=== PATIENT | female | born 1960 | race Caucasian/White ===

== ENCOUNTER → 2018-03-04 14:44 | Outpatient (CLI) | payer OTHER, SELFPAY ==
[2018-03-04 15:45] LABS: Add Manual Diff / Slide Review NO; Basophils Percent Auto 0.5 % (0-2); Eosinophils Percent Auto 0.7 % (2-4); Hematocrit 41.9 % (36-46); Hemoglobin 14.2 g/dL (12.0-16.0); Lymphocytes Percent Auto 6.4 % (25-40); Mean Corpuscular HGB Conc 33.9 % (30-36); Mean Corpuscular Hemoglobin 29.7 PG (26-34); Mean Corpuscular Volume 87.7 fL (80-100); Monocytes Percent Auto 7.5 % (3-14); Neutrophils Absolute Auto 12100 /uL (3000-5900); Neutrophils Percent Auto 84.9 % (50-75); Platelet Count 239 X10^3/uL (150-400); Red Blood Cell Count 4.78 X10^6/uL (4.0-5.2); White Blood Cell Count 14.3 X10^3/uL (4.5-11.0)
[2018-03-04 16:33] LABS: Alanine Aminotransferase 31 IU/L (9-52); Albumin Globulin Ratio 1.9 (1.0-2.8); Alkaline Phosphatase 70 U/L (38-126); Aspartate Aminotransferase 15 IU/L (14-36); BUN Creatinine Ratio 27.1 (6-22); Bilirubin Total 1.2 mg/dL (0.2-1.3); Blood Urea Nitrogen 19 mg/dL (7-17); Calcium 9.8 mg/dL (8.4-10.2); Carbon Dioxide 21 mmol/L (22-32); Chloride 97 mmol/L (98-107); Estimated Glomerular Filt Rate > 60.0 mL/min (>60); Globulin 2.6 g/dL (1.7-4.1); Glucose 97 mg/dL (70-100); HEMOLYSIS 15 (0-50); Lipase 46 U/L (23-300); Potassium 4.4 mmol/L (3.4-5.1); Sodium 138 mmol/L (137-145); Total Protein 7.6 g/dL (6.3-8.2)
== END ==
PROVIDERS: PCP Physician Assistant; Visit Provider Physician Assistant
DX: R10.13 Epigastric pain (principal)
CPT/HCPCS: 36415; 80053; 83690; 85025

== ENCOUNTER 2018-03-04 15:07 | Observation (INO) | payer OTHER, SELFPAY ==
[2018-03-04 15:22] VITALS: BP 128/76; PULSE 60; RESP 18; TEMP 37.8; O2SAT 98
[2018-03-04 15:50] VITALS: BP 128/76; PULSE 60; RESP 18; TEMP 37.8; O2SAT 98
[2018-03-04 18:46] VITALS: BP 126/61; PULSE 90; RESP 15; O2SAT 98
--- NOTE | 2018-03-04 19:19 | ED.ABDPAIN ---
HPI - Abdominal Pain <Zoë Montanez PA-C - Last Filed: 03/04/18 23:08> General Chief Complaint: Abdominal Pain Stated Complaint: NEEDS ULTRASOUND Time Seen by Provider: 03/04/18 18:54 Source: patient Mode of arrival: ambulatory Limitations: no limitations History of Present Illness HPI narrative: This 58-year-old female complains of possible gallbladder attack. She states that her 1st episode of pain was in October, had a 2nd in January and another today that started at 3:00 a.m.. She states this seems to be mostly in the central epigastric area and also right upper quadrant. Pain seems to worsen with movement, going over bumps in the car, perhaps with food though she has been eating a very healthy diet recently and lost 62 lb. She states that she does get nausea and has had vomiting x1 when she tried to take her med since today. She states that she had a fever of 100.5 at home earlier. She was seen at her PCP clinic and labs and ultrasound were ordered however she was unable to get these done today so came here. She denies any urinary symptoms. She denies any bowel habit changes or blood in the stools. She has had flank pain. Pain does not seem to radiate. She thinks that the pain is a bit better lying flat. 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 She notes that she is generally healthy. Her allergy to IVP dye consisted as feeling sleepy and sneezing, but she has never had dyspnea or wheeze nor any rash or facial swelling with this. Related Data Home Medications Medication Instructions Recorded Confirmed bupropion HCl 1 tab PO DAILY 03/04/18 metformin 500 mg PO BID 03/04/18 03/04/18 topiramate 1 tab PO DIRECTED 03/04/18 03/04/18 topiramate 25 mg PO DAILY 03/04/18 03/04/18 bupropion HCl 03/05/18 Previous Rx's Medication Instructions Recorded lisinopril-hydrochlorothiazide 1 tab PO QDAY #30 tab 08/29/17 Allergies Allergy/AdvReac Type Severity Reaction Status Date / Time IVP DYE Allergy Mild REALLY Uncoded 11/27/17 11:48 REALLY SLEEPY AND SNEEZING Review of Systems <Zoë Montanez PA-C - Last Filed: 03/04/18 23:08> Review of Systems All systems reviewed & are unremarkable except as noted in HPI and below Exam <Zoë Montanez PA-C - Last Filed: 03/04/18 23:08> Narrative Exam Narrative: GENERAL APPEARANCE: Patient sitting comfortably, in no distress. HEENT: PERRL, EOMI, no scleral icterus NECK: Supple LUNGS: Clear to auscultation bilaterally. HEART: Rate and rhythm regular, normal S1 and S2, no S3 or S4. ABDOMEN: Soft, nondistended, bowel sounds present x 4 quadrants, no masses palpable, no hepatosplenomegaly. She has right upper quadrant tenderness with positive Dow sign, tenderness over the central epigastrium and also the left upper quadrant. She is tender over the right lower quadrant/McBurney's point area as well. There is no guarding or rebound. No CVAT. No suprapubic tenderness or tenderness over the pelvis EXTREMITIES: No edema, no cyanosis DERMATOLOGIC: No jaundice or exanthem NEUROLOGIC: Alert and oriented with normal speech and coordination Initial Vital Signs Initial Vital Signs: Vital Signs Temperature 100.0 F H 03/04/18 15:22 Pulse Rate 60 03/04/18 15:22 Respiratory Rate 18 03/04/18 15:22 Blood Pressure 128/76 H 03/04/18 15:22 Pulse Oximetry 98 03/04/18 15:22 <Elias Márquez DO - Last Filed: 03/05/18 03:52> Initial Vital Signs Initial Vital Signs: Vital Signs Temperature 100.0 F H 03/04/18 15:22 Pulse Rate 60 03/04/18 15:22 Respiratory Rate 18 03/04/18 15:22 Blood Pressure 128/76 H 03/04/18 15:22 Pulse Oximetry 98 03/04/18 15:22 Course <GERMAIN Bailon Last Filed: 03/04/18 23:08> Additional Information: Patient was initially sent in for ultrasound, however she appeared to have more diffuse pain on exam and CT was ordered. She has severe diverticulitis without free air or clear abscess. I spoke with Dr. Mason industrial controller for surgery and reviewed lab findings including elevated white count and CT results. He does not feel she is an acute surgical candidate, but did recommend medical management with IV antibiotics and monitoring, and he can consult. Levaquin and Flagyl ordered. Clear liquid diet ordered along with Dilaudid for pain and additional IV fluids. Dr. Ash industrial controller hospitalist is agreeable with admission to Medicine. Orders Ordered: ED Orders 03/04/18 19:40 CT abdomen pelvis w con Stat 03/04/18 21:19 Comprehensive Metabolic Panel Stat Lipase Stat Morphine Sulfate (Morphine) 5 mg IV Q2HR PRN PRN Reason: Pain, Severe (7-10) Morphine Sulfate (Morphine) 6 mg IV Q2HR PRN PRN Reason: Pain, Severe (7-10) Morphine Sulfate (Morphine) 4 mg IV Q2HR PRN PRN Reason: Pain, Severe (7-10) Morphine Sulfate (Morphine Sulfate) 7 mg IV Q2H PRN PRN Reason: Pain, Severe (7-10) Morphine Sulfate (Morphine) 8 mg IV Q2HR PRN PRN Reason: Pain, Severe (7-10) Ondansetron HCl (Zofran) 4 mg IV Q4HR PRN PRN Reason: Nausea And Vomiting Oxycodone/Acetaminophen (Percocet 5/325) 1 tab PO Q4HR PRN PRN Reason: Pain, Moderate (4-6) Last Admin: 03/05/18 01:35 Dose: 1 tab Oxycodone/Acetaminophen (Percocet 5/325) 2 tab PO Q4HR PRN PRN Reason: Pain, Moderate (4-6) Discontinued Medications Diphenhydramine HCl (Benadryl) 25 mg IV NOW ONE Stop: 03/04/18 19:51 Last Admin: 03/04/18 20:38 Dose: 25 mg Hydromorphone HCl (Dilaudid) 0.5 mg IV NOW ONE Stop: 03/04/18 21:53 Last Admin: 03/04/18 22:16 Dose: 0.5 mg Sodium Chloride (Normal Saline 0.9%) 1,000 mls @ 1,000 mls/hr IV BOLUS ONE Stop: 03/04/18 20:39 Last Infusion: 03/04/18 21:13 Dose: 0 mls/hr Admin: 03/04/18 19:45 Dose: 1,000 mls/hr Metronidazole (Flagyl) 500 mg in 100 mls @ 100 mls/hr IV NOW ONE Stop: 03/04/18 22:48 Last Admin: 03/04/18 22:16 Dose: 100 mls/hr Levofloxacin (Levaquin) 750 mg in 150 mls @ 100 mls/hr IV NOW ONE Stop: 03/04/18 23:18 Last Admin: 03/04/18 23:00 Dose: 100 mls/hr Sodium Chloride (Normal Saline 0.9%) 1,000 mls @ 1,000 mls/hr IV BOLUS ONE Stop: 03/04/18 22:51 Last Infusion: 03/04/18 22:54 Dose: 1,000 mls/hr Admin: 03/04/18 22:19 Dose: 1,000 mls/hr Ketorolac Tromethamine (Toradol) 30 mg IV NOW ONE Stop: 03/04/18 19:41 Last Admin: 03/04/18 19:45 Dose: 30 mg Morphine Sulfate (Morphine) 4 mg IV Q2HR KARMEN Last Admin: 03/05/18 02:56 Dose: Admin: 03/05/18 02:56 Dose: Ondansetron HCl (Zofran) 4 mg IV NOW ONE Stop: 03/04/18 18:56 Last Admin: 03/04/18 19:45 Dose: 4 mg Oxycodone/Acetaminophen (Percocet 5/325) 2 tab PO Q2HR PRN PRN Reason: Pain, Severe (7-10) Vital Signs - 8 hr 03/04/18 21:37 03/04/18 22:55 03/04/18 23:40 Temperature 98.7 F 98.2 F 98.1 F Pulse Rate 84 69 64 Respiratory Rate 17 22 18 Blood Pressure 157/85 H 110/74 Blood Pressure [Right Arm] 131/57 H Pulse Oximetry 98 96 95 <Elias Márquez, - Last Filed: 03/05/18 03:52> Orders Ordered: ED Orders 03/04/18 19:40 CT abdomen pelvis w con Stat 03/04/18 21:19 Comprehensive Metabolic Panel Stat Lipase Stat Morphine Sulfate (Morphine) 5 mg IV Q2HR PRN PRN Reason: Pain, Severe (7-10) Morphine Sulfate (Morphine) 6 mg IV Q2HR PRN PRN Reason: Pain, Severe (7-10) Morphine Sulfate (Morphine) 4 mg IV Q2HR PRN PRN Reason: Pain, Severe (7-10) Morphine Sulfate (Morphine Sulfate) 7 mg IV Q2H PRN PRN Reason: Pain, Severe (7-10) Morphine Sulfate (Morphine) 8 mg IV Q2HR PRN PRN Reason: Pain, Severe (7-10) Ondansetron HCl (Zofran) 4 mg IV Q4HR PRN PRN Reason: Nausea And Vomiting Oxycodone/Acetaminophen (Percocet 5/325) 1 tab PO Q4HR PRN PRN Reason: Pain, Moderate (4-6) Last Admin: 03/05/18 01:35 Dose: 1 tab Oxycodone/Acetaminophen (Percocet 5/325) 2 tab PO Q4HR PRN PRN Reason: Pain, Moderate (4-6) Discontinued Medications Diphenhydramine HCl (Benadryl) 25 mg IV NOW ONE Stop: 03/04/18 19:51 Last Admin: 03/04/18 20:38 Dose: 25 mg Hydromorphone HCl (Dilaudid) 0.5 mg IV NOW ONE Stop: 03/04/18 21:53 Last Admin: 03/04/18 22:16 Dose: 0.5 mg Sodium Chloride (Normal Saline 0.9%) 1,000 mls @ 1,000 mls/hr IV BOLUS ONE Stop: 03/04/18 20:39 Last Infusion: 03/04/18 21:13 Dose: 0 mls/hr Admin: 03/04/18 19:45 Dose: 1,000 mls/hr Metronidazole (Flagyl) 500 mg in 100 mls @ 100 mls/hr IV NOW ONE Stop: 03/04/18 22:48 Last Admin: 03/04/18 22:16 Dose: 100 mls/hr Levofloxacin (Levaquin) 750 mg in 150 mls @ 100 mls/hr IV NOW ONE Stop: 03/04/18 23:18 Last Admin: 03/04/18 23:00 Dose: 100 mls/hr Sodium Chloride (Normal Saline 0.9%) 1,000 mls @ 1,000 mls/hr IV BOLUS ONE Stop: 03/04/18 22:51 Last Infusion: 03/04/18 22:54 Dose: 1,000 mls/hr Admin: 03/04/18 22:19 Dose: 1,000 mls/hr Ketorolac Tromethamine (Toradol) 30 mg IV NOW ONE Stop: 03/04/18 19:41 Last Admin: 03/04/18 19:45 Dose: 30 mg Morphine Sulfate (Morphine) 4 mg IV Q2HR KARMEN Last Admin: 03/05/18 02:56 Dose: Admin: 03/05/18 02:56 Dose: Ondansetron HCl (Zofran) 4 mg IV NOW ONE Stop: 03/04/18 18:56 Last Admin: 03/04/18 19:45 Dose: 4 mg Oxycodone/Acetaminophen (Percocet 5/325) 2 tab PO Q2HR PRN PRN Reason: Pain, Severe (7-10) Vital Signs - 8 hr 03/04/18 21:37 03/04/18 22:55 03/04/18 23:40 Temperature 98.7 F 98.2 F 98.1 F Pulse Rate 84 69 64 Respiratory Rate 17 22 18 Blood Pressure 157/85 H 110/74 Blood Pressure [Right Arm] 131/57 H Pulse Oximetry 98 96 95 MDM - Abdominal Pain <Zoë Montanez PA-C - Last Filed: 03/04/18 23:08> Lab Data Attestation: I reviewed the patient's lab results. Result diagrams: 03/04/18 18:45 03/04/18 21:19 Lab Results 03/04/18 03/04/18 Range/Units 18:45 21:19 WBC 15.0 H (4.5-11.0) X10^3/uL RBC 4.77 (4.0-5.2) X10^6/uL Hgb 14.2 (12.0-16.0) g/dL Hct 41.5 (36-46) % MCV 87.0 (80-100) fL MCH 29.8 (26-34) PG MCHC 34.3 (30-36) % RDW 14.9 H (11.6-14.8) % Plt Count 231 (150-400) X10^3/uL Total Counted 100 Seg Neutrophils % 80.0 H (38-70) % Lymphocytes % (Manual) 9.0 L (25-45) % Monocytes % (Manual) 9.0 (2-11) % Eosinophils % (Manual) 1.0 L (2-4) % Basophils % (Manual) 1.0 (0-1) % Neutrophils # (Manual) 33111 H (6314-8307) /uL RBC Morphology Normal morphology Sodium 133 L (137-145) mmol/L Potassium 4.0 (3.4-5.1) mmol/L Chloride 97 L (98-107) mmol/L Carbon Dioxide 23 (22-32) mmol/L BUN 20 H (7-17) mg/dL Creatinine 0.70 (0.52-1.04) mg/dL Estimated GFR > 60.0 (>60) mL/min BUN/Creatinine Ratio 28.6 H (6-22) Glucose 96 (70-100) mg/dL Calcium 8.5 (8.4-10.2) mg/dL Total Bilirubin 0.9 (0.2-1.3) mg/dL AST 12 L (14-36) IU/L ALT 30 (9-52) IU/L Alkaline Phosphatase 53 (38-126) U/L Total Protein 6.4 (6.3-8.2) g/dL Albumin 4.0 (3.5-5.0) g/dL Globulin 2.4 (1.7-4.1) g/dL Albumin/Globulin Ratio 1.7 (1.0-2.8) Lipase 38 (23-300) U/L Point of care testing: Urine Dip Bedside Urine Glucose Negative Bedside Urine Bilirubin - Negative Bedside Urine Ketone ++ 40 Urine Specific [place] 1.010 Bedside Urine Occult Blood - Negative Bedside Urine pH 6.0 Bedside Urine Protein - Negative Bedside Urine Urobilinogen +/- 1mg Bedside Urine Nitrite - Negative Bedside Urine Leukocytes - Negative Esterase <Elias Márquez, DO - Last Filed: 03/05/18 03:52> Lab Data Lab Results 03/04/18 03/04/18 Range/Units 18:45 21:19 WBC 15.0 H (4.5-11.0) X10^3/uL RBC 4.77 (4.0-5.2) X10^6/uL Hgb 14.2 (12.0-16.0) g/dL Hct 41.5 (36-46) % MCV 87.0 (80-100) fL MCH 29.8 (26-34) PG MCHC 34.3 (30-36) % RDW 14.9 H (11.6-14.8) % Plt Count 231 (150-400) X10^3/uL Total Counted 100 Seg Neutrophils % 80.0 H (38-70) % Lymphocytes % (Manual) 9.0 L (25-45) % Monocytes % (Manual) 9.0 (2-11) % Eosinophils % (Manual) 1.0 L (2-4) % Basophils % (Manual) 1.0 (0-1) % Neutrophils # (Manual) 80406 H (9886-9876) /uL RBC Morphology Normal morphology Sodium 133 L (137-145) mmol/L Potassium 4.0 (3.4-5.1) mmol/L Chloride 97 L (98-107) mmol/L Carbon Dioxide 23 (22-32) mmol/L BUN 20 H (7-17) mg/dL Creatinine 0.70 (0.52-1.04) mg/dL Estimated GFR > 60.0 (>60) mL/min BUN/Creatinine Ratio 28.6 H (6-22) Glucose 96 (70-100) mg/dL Calcium 8.5 (8.4-10.2) mg/dL Total Bilirubin 0.9 (0.2-1.3) mg/dL AST 12 L (14-36) IU/L ALT 30 (9-52) IU/L Alkaline Phosphatase 53 (38-126) U/L Total Protein 6.4 (6.3-8.2) g/dL Albumin 4.0 (3.5-5.0) g/dL Globulin 2.4 (1.7-4.1) g/dL Albumin/Globulin Ratio 1.7 (1.0-2.8) Lipase 38 (23-300) U/L Point of care testing: Urine Dip Bedside Urine Glucose Negative Bedside Urine Bilirubin - Negative Bedside Urine Ketone ++ 40 Urine Specific [place] 1.010 Bedside Urine Occult Blood - Negative Bedside Urine pH 6.0 Bedside Urine Protein - Negative Bedside Urine Urobilinogen +/- 1mg Bedside Urine Nitrite - Negative Bedside Urine Leukocytes - Negative Esterase Discharge Plan Departure Patient Disposition: Admitted As Inpatient Clinical Impression: Diverticulitis Discharge Date/Time: 03/04/18 22:32 Interventions: ED Discharge Assessment Last Done: 03/04/18 22:52 Admit Date/Time: 03/04/18 22:29 Admit Provider: Laura Ash <Elias Márquez DO - Last Filed: 03/05/18 03:52> Cosign ED Attending Costroyature Attestation: I was immediately available in the department for consultation. Documentation has been reviewed. I agree with assessment and plan.
[2018-03-04 19:22] LABS: Hematocrit 41.5 % (36-46); Hemoglobin 14.2 g/dL (12.0-16.0); Mean Corpuscular Hemoglobin 29.8 PG (26-34); Red Blood Cell Count 4.77 X10^6/uL (4.0-5.2)
[2018-03-04 19:23] LABS: Mean Corpuscular HGB Conc 34.3 % (30-36); Platelet Count 231 X10^3/uL (150-400); Red Cell Distribution Width 14.9 % (11.6-14.8)
[2018-03-04 19:24] LABS: Neutrophils Absolute Manual 12000 /uL (3000-5900); RBC Morphology Normal Morphology; Total Cells Counted 100
--- NOTE | 2018-03-04 19:40 | DI.CT.S_ITS ---
PROCEDURE: CT ABDOMEN PELVIS W CON INDICATIONS: abdominal pain, nausea, fever TECHNIQUE: After the administration of oral and intravenous contrast, 5 mm thick sections acquired from the diaphragms to the symphysis. 5 mm thick coronal and sagittal reformats were performed. For radiation dose reduction, the following was used: automated exposure control, adjustment of mA and/or kV according to patient size. COMPARISON: [facility], CT, ABDOMEN/PELVIS WITH CONTRAST, 06/12/2016, 12:56. FINDINGS: Image quality: Excellent. ABDOMEN: Lung bases: Lung bases are clear. Heart size is normal. Solid organs: Liver is normal in size and enhancement. Gallbladder demonstrates calculi within its lumen. Biliary system is non-dilated. Pancreas enhances normally. Spleen is normal in size and enhancement. No adrenal nodules. Kidneys are normal in size and enhancement, without hydronephrosis. Peritoneum and bowel: Stomach and small bowel are within normal limits. Appendix is normal. Colon is nondistended. There is diverticulosis of the transverse, descending, and sigmoid colon. Within the mid transverse colon, there is a focal region of severe colonic wall thickening, and moderate surrounding fat stranding. There appears to be an inflamed diverticulum protruding anteriorly from the mid transverse colon. No free fluid or air. Nodes and vessels: No retroperitoneal or mesenteric adenopathy. Aorta and inferior vena cava are normal in caliber. Miscellaneous: No ventral hernias. PELVIS: Genitourinary: Bladder wall thickness is normal. 25 mm diameter left ovarian cyst is present, and is increased. Miscellaneous: No inguinal hernias or adenopathy. Bones: No suspicious bony lesions. No vertebral body compression fractures. IMPRESSION: 1. Findings most suggestive of severe acute diverticulitis of the mid transverse colon without pericolonic abscess. However, given the degree of wall thickening, colonoscopy is recommended to exclude the less likely possibility of underlying malignancy. 2. Cholelithiasis. 3. Left ovarian cyst in a presumably postmenopausal female; gynecological consultation is recommended. Dictated by: Benjamin Garrison M.D. on 03/04/2018 at 21:10 Approved by: Benajmin Garrison M.D. on 03/04/2018 at 21:13
[2018-03-04] MEDS: ONDANSETRON 4 MG/2 ML INJ IV (19:45)
[2018-03-04] MEDS: SODIUM CHLORIDE 0.9% 1,000 ML 1000 ML IV ×2 (19:45→22:19)
[2018-03-04] MEDS: KETOROLAC 60 MG/2 ML VIAL 30 MG IV (19:45)
[2018-03-04] MEDS: diphenhydrAMINE 50 MG/ML VIAL 25 MG IV (20:38)
[2018-03-04 21:37] VITALS: BP 131/57; PULSE 84; RESP 17; TEMP 37.1; O2SAT 98
[2018-03-04 21:38] LABS: Alanine Aminotransferase 30 IU/L (9-52); Albumin Globulin Ratio 1.7 (1.0-2.8); Alkaline Phosphatase 53 U/L (38-126); Aspartate Aminotransferase 12 IU/L (14-36); BUN Creatinine Ratio 28.6 (6-22); Bilirubin Total 0.9 mg/dL (0.2-1.3); Blood Urea Nitrogen 20 mg/dL (7-17); Calcium 8.5 mg/dL (8.4-10.2); Carbon Dioxide 23 mmol/L (22-32); Chloride 97 mmol/L (98-107); Estimated Glomerular Filt Rate > 60.0 mL/min (>60); Globulin 2.4 g/dL (1.7-4.1); Glucose 96 mg/dL (70-100); HEMOLYSIS < 15 (0-50); Lipase 38 U/L (23-300); Sodium 133 mmol/L (137-145); Total Protein 6.4 g/dL (6.3-8.2)
[2018-03-04] MEDS: HYDROMORPHONE 1 MG INJ 0.5 MG IV (22:16)
[2018-03-04] MEDS: metroNIDAZOLE 500 MG/100 ML PIGGYBACK 100 MG IV (22:16)
[2018-03-04 22:55] VITALS: BP 157/85; PULSE 69; RESP 22; TEMP 36.8; O2SAT 96
[2018-03-04] MEDS: levoFLOXacin 750 MG/150 ML PIGGYBACK 100 MG IV (23:00)
[2018-03-04 23:40] VITALS: BP 110/74; PULSE 64; RESP 18; TEMP 36.7; O2SAT 95
[2018-03-05] VITALS (8 sets, daily range): BP systolic 97–143; BP diastolic 51–75; PULSE 54–72; RESP 16–18; TEMP 36–36.8; O2SAT 95–99; BMI 34.0
[2018-03-05] MEDS: OXYCODONE/ACETAMINOPHEN 5/325 TABLET 1 TAB PO ×3 (01:35→21:10)
--- NOTE | 2018-03-05 02:57 | PC.ADMIT ---
Addendum entered by Theresa Campbell R.N. 03/05/18 02:58: 0000 pt had arrived to room at change of shift, she is A/ox3, [place]FOR[place]K per her baseline with no hear aides. Pt has tenderness to mid abdomen and denies nausea. Initially denied need for pain med but changed her mind and had 1 tab Percocet for 3/10 pain to abdomen. IV antibiotics infused. Pt oriented to room and call light. Original Note: [facility] Admission Note: The patient,Traci Mireles,58 y/o, was given written information regarding hospital policies, unit procedures and contact persons. Patient's smoking status: Never smoker. Vital Signs - 8 hr 03/04/18 21:37 03/04/18 22:55 03/04/18 23:40 Temperature 98.7 F 98.2 F 98.1 F Pulse Rate 84 69 64 Respiratory Rate 17 22 18 Blood Pressure 157/85 H 110/74 Blood Pressure [Right Arm] 131/57 H Pulse Oximetry 98 96 95
--- NOTE | 2018-03-05 09:56 | PM.HP.1 ---
History of Present Illness Date Patient Seen: 03/05/18 Time Patient Seen: 09:56 Chief complaint: NEEDS ULTRASOUND Narrative: 58-year-old female presents with increasing abdominal pain and nausea. She has had intermittent pain for the past several weeks she has been having increasing fevers. She has been on a low carb diet has lost 60 lb over the past several months. She does have a history of diverticulosis and had a colonoscopy about 2 years ago had a polyp removed at that time. Patient History Medical History Colon polyps (Acute) Diverticulosis (Acute) HTN (hypertension) (Chronic) Hyperglycemia (Chronic) Family & Social History Social History: household members spouse Prior Living Arrangements House Safety & Behavioral: Feels Safe in Current Yes Environment Been Physically Hurt or No Threatened By a Person Suicidal Ideation Description None Tobacco & Substance use: Smoking Status Never smoker alcohol intake frequency holiday/special occasion Substance Use Type does not use Meds Home Medications Medication Instructions Recorded Confirmed Type lisinopril-hydrochlorothiazide 1 tab PO QDAY #30 tab 08/29/17 03/04/18 Rx bupropion HCl 1 tab PO DAILY 03/04/18 03/05/18 History metformin 500 mg PO BID 03/04/18 03/04/18 History topiramate 1 tab PO DIRECTED 03/04/18 03/04/18 History topiramate 25 mg PO DAILY 03/04/18 03/04/18 History Allergies Allergy/AdvReac Type Severity Reaction Status Date / Time IVP DYE Allergy Mild REALLY Uncoded 11/27/17 11:48 REALLY SLEEPY AND SNEEZING Review of Systems Review of Systems All systems reviewed & are unremarkable except as noted in HPI and below Exam Vital Signs (past 8 hours): - 03/05/18 04:35 03/05/18 08:19 Temperature 97.6 F 97.9 F Pulse Rate 57 L 62 Respiratory Rate 18 16 Blood Pressure 111/57 L 122/62 H Pulse Oximetry 95 99 Oxygen Delivery Method Room Air Oxygen Flow Rate 0 Narrative Exam Narrative: Pleasant female no acute distress HEENT exam unremarkable Lungs clear Heart regular rhythm Abdomen is soft no tenderness to palpation today although she says earlier when she came to the ER she was very tender bowel sounds are hypoactive but present Lower extremities no edema Neuro exam awake alert oriented no focal deficits Objective Labs Result Diagrams: 03/04/18 18:45 03/04/18 21:19 Labs: Laboratory Results - last 24 hr 03/04/18 03/04/18 18:45 21:19 WBC 15.0 H RBC 4.77 Hgb 14.2 Hct 41.5 MCV 87.0 MCH 29.8 MCHC 34.3 RDW 14.9 H Plt Count 231 Total Counted 100 Seg Neutrophils % 80.0 H Lymphocytes % (Manual) 9.0 L Monocytes % (Manual) 9.0 Eosinophils % (Manual) 1.0 L Basophils % (Manual) 1.0 Neutrophils # (Manual) 57735 H RBC Morphology Normal morphology Sodium 133 L Potassium 4.0 Chloride 97 L Carbon Dioxide 23 BUN 20 H Creatinine 0.70 Estimated GFR > 60.0 BUN/Creatinine Ratio 28.6 H Glucose 96 Calcium 8.5 Total Bilirubin 0.9 AST 12 L ALT 30 Alkaline Phosphatase 53 Total Protein 6.4 Albumin 4.0 Globulin 2.4 Albumin/Globulin Ratio 1.7 Lipase 38 Assessment & Plan Plan: Assessment/Plan Narrative: One. Acute diverticulitis CT scan showing diverticulitis white count elevated 15. She is hemodynamically stable she is feeling much better with antibiotics and fluids given in the ER. I would anticipate her probably just being here on observation overnight and then possibly home tomorrow morning as long as she is feeling better we can continue oral antibiotics. Plan to watch her carefully cheese not having any current nausea or vomiting will advance her diet as tolerated 2. Hypertension plan to continue home medications 3. Diabetes type 2 on metformin plan to continue medications 4. Disposition she will be observation status for now
--- NOTE | 2018-03-05 09:58 | PM.CN ---
History of Present Illness Date Patient Seen: 03/05/18 Time Patient Seen: 09:58 Chief complaint: NEEDS ULTRASOUND Reason for consult: Abdominal pain Requesting provider: Laura Ash Narrative: 58-year-old female who presented the emergency department last evening with 24 hr history of progressive epigastric abdominal pain radiating toward the umbilicus. She had had similar episodes on 2 separate occasions over the last 2-3 months but these spontaneously resolved. On this particular occasion the pain was unrelenting and quite sharp in nature. Denied any chest pain or shortness of breath. No subjective fever or chills. She did have nausea and vomiting yesterday but none since. She tolerated a diet yesterday up until the time that the pain became quite severe. Nevertheless, she is tolerating clear liquid diet since admission to the hospital. She reports relatively normal bowel function yesterday although the stool was somewhat darker and less formed than usual. She is passing flatus. No dysuria or hematuria. She has had no true melena, hematochezia, or bright red blood per rectum. Her current pain is much less than when she was admitted last night in the emergency department, and overall she states she is feeling much better this morning. She denies any association between meals, types of food, and her current symptoms. [facility] Medical History Cholelithiasis (Acute) Colon polyps (Acute) Diverticulitis (Acute) Diverticulosis (Acute) HTN (hypertension) (Chronic) Hyperglycemia (Chronic) Surgical History H/O colonoscopy with polypectomy (Acute) History of tonsillectomy (Acute) Family History Brother Age: 51 Crohns disease Grandfather Heart disease Mother Heart disease Stroke Social History household members: spouse Smoking Status: Never smoker Meds Home Medications Medication Instructions Recorded Confirmed Type lisinopril-hydrochlorothiazide 1 tab PO QDAY #30 tab 08/29/17 03/04/18 Rx bupropion HCl 1 tab PO DAILY 03/04/18 03/05/18 History metformin 500 mg PO BID 03/04/18 03/04/18 History topiramate 1 tab PO DIRECTED 03/04/18 03/04/18 History topiramate 25 mg PO DAILY 03/04/18 03/04/18 History Allergies Allergy/AdvReac Type Severity Reaction Status Date / Time IVP DYE Allergy Mild REALLY Uncoded 11/27/17 11:48 REALLY SLEEPY AND SNEEZING Review of Systems Review of Systems All systems reviewed & are unremarkable except as noted in HPI and below Exam Vital Signs (past 8 hours): - 03/05/18 04:35 03/05/18 08:19 Temperature 97.6 F 97.9 F Pulse Rate 57 L 62 Respiratory Rate 18 16 Blood Pressure 111/57 L 122/62 H Pulse Oximetry 95 99 Oxygen Delivery Method Room Air Oxygen Flow Rate 0 Narrative Exam Narrative: Well-nourished well-developed mildly obese female in no acute distress lying comfortably in bed. Alert oriented x3 Her is at the bedside throughout my entire visit Sclera nonicteric Neck is supple Chest clear to auscultation bilaterally with regular rate and rhythm. No murmurs, gallops, rubs. No crackles or wheezes No flank tenderness Abdomen is soft and mildly obese but nondistended. She is not tympanitic. She has active bowel sounds. She is tender in the supraumbilical region only. No lower abdominal tenderness. No right upper quadrant tenderness. No Dow sign. She does not have any guarding or rebound. Extremities show no clubbing, cyanosis, or edema Objective Labs Result Diagrams: 03/04/18 18:45 03/04/18 21:19 Labs: Laboratory Results - last 24 hr 03/04/18 03/04/18 18:45 21:19 WBC 15.0 H RBC 4.77 Hgb 14.2 Hct 41.5 MCV 87.0 MCH 29.8 MCHC 34.3 RDW 14.9 H Plt Count 231 Total Counted 100 Seg Neutrophils % 80.0 H Lymphocytes % (Manual) 9.0 L Monocytes % (Manual) 9.0 Eosinophils % (Manual) 1.0 L Basophils % (Manual) 1.0 Neutrophils # (Manual) 56287 H RBC Morphology Normal morphology Sodium 133 L Potassium 4.0 Chloride 97 L Carbon Dioxide 23 BUN 20 H Creatinine 0.70 Estimated GFR > 60.0 BUN/Creatinine Ratio 28.6 H Glucose 96 Calcium 8.5 Total Bilirubin 0.9 AST 12 L ALT 30 Alkaline Phosphatase 53 Total Protein 6.4 Albumin 4.0 Globulin 2.4 Albumin/Globulin Ratio 1.7 Lipase 38 I have personally reviewed her CT scan of the abdomen and pelvis done last evening in the emergency department. No free air. No abscess. No phlegmon. No dilated loops of small bowel or large intestine. No air-fluid levels. No solid organ lesions. She does have a left ovarian cyst of unclear significance. No significant free fluid anywhere in the abdomen. She does have incidental calcified gallstones. No evidence of cholecystitis however. There is extensive diverticulosis throughout the colon with thickening of the transverse colon consistent with diverticulitis. Assessment & Plan Plan: Assessment/Plan Narrative: I discussed my impression findings with the patient and her in detail. She seems to have uncomplicated transverse diverticulitis. I doubt colonic neoplasm. She did have colonoscopy under the care of Dr. Sharif on March 14, 2016 at this institution. I have reviewed those records as well as the pathology findings. She had evidence of tubular adenomas and a serrated adenoma. Serrated adenoma was removed from the transverse colon. There was extensive diverticulosis noted on the operative report. No evidence of microscopic colitis however. Recommendation for follow-up colonoscopy was in 3 years at that time. I do not believe that her current episode is consistent with biliary colic secondary to cholelithiasis. I discussed all the above with the patient in detail. She does not require any acute surgical intervention at this time. I anticipate that she will resolve clinically with intravenous broad-spectrum antibiotics. I agree with Levaquin and Flagyl as ordered. Continue clear liquid diet for now. If she continues to progress and improve throughout the day then we may advance her to a low residue diet this evening. If she tolerates a low residue diet and continues to improve then potentially discharge home tomorrow on oral antibiotics. I discussed all of this with her at length. She was agreeable to the plan. We will continue to follow her during this admission.
[2018-03-05] MEDS: SODIUM CHLORIDE 0.45% 1,000 ML 100 ML IV (10:12)
[2018-03-05] MEDS: metroNIDAZOLE 500 MG/100 ML PIGGYBACK 100 MG IV ×3 (10:12→23:12)
[2018-03-05] MEDS: ACETAMINOPHEN 325 MG TABLET 650 MG PO (13:52)
[2018-03-05] MEDS: levoFLOXacin 750 MG/150 ML PIGGYBACK 100 MG IV (21:11)
[2018-03-05] MEDS: METFORMIN HCL 500 MG TABLET PO (21:11)
[2018-03-06 01:44] VITALS: BP 126/65; PULSE 51; RESP 16; TEMP 36.8; O2SAT 96
[2018-03-06] MEDS: OXYCODONE/ACETAMINOPHEN 5/325 TABLET 1 TAB PO (03:32)
[2018-03-06] MEDS: metroNIDAZOLE 500 MG/100 ML PIGGYBACK 100 MG IV ×2 (03:35→09:58)
[2018-03-06] MEDS: SODIUM CHLORIDE 0.45% 1,000 ML 100 ML IV (03:37)
[2018-03-06 05:36] VITALS: BP 117/57; PULSE 62; RESP 16; TEMP 36.7; O2SAT 96
[2018-03-06] MEDS: ACETAMINOPHEN 325 MG TABLET 650 MG PO (06:30)
[2018-03-06 07:27] LABS: Add Manual Diff / Slide Review NO; Eosinophils Percent Auto 3.8 % (2-4); Mean Corpuscular HGB Conc 33.4 % (30-36); Mean Corpuscular Hemoglobin 29.5 PG (26-34); Mean Corpuscular Volume 88.3 fL (80-100); Monocytes Percent Auto 8.6 % (3-14); Neutrophils Absolute Auto 2400 /uL (3000-5900); Neutrophils Percent Auto 64.6 % (50-75); Platelet Count 139 X10^3/uL (150-400); Red Blood Cell Count 4.08 X10^6/uL (4.0-5.2); Red Cell Distribution Width 14.5 % (11.6-14.8); White Blood Cell Count 3.8 X10^3/uL (4.5-11.0)
[2018-03-06 07:31] LABS: Alanine Aminotransferase 26 IU/L (9-52); Albumin 3.7 g/dL (3.5-5.0); Albumin Globulin Ratio 1.7 (1.0-2.8); Alkaline Phosphatase 45 U/L (38-126); Aspartate Aminotransferase 9 IU/L (14-36); Bilirubin Total 0.3 mg/dL (0.2-1.3); Blood Urea Nitrogen 9 mg/dL (7-17); Calcium 8.7 mg/dL (8.4-10.2); Carbon Dioxide 29 mmol/L (22-32); Chloride 103 mmol/L (98-107); Estimated Glomerular Filt Rate > 60.0 mL/min (>60); Globulin 2.2 g/dL (1.7-4.1); Glucose 99 mg/dL (70-100); HEMOLYSIS < 15 (0-50); Potassium 3.9 mmol/L (3.4-5.1); Sodium 140 mmol/L (137-145); Total Protein 5.9 g/dL (6.3-8.2)
[2018-03-06 08:23] VITALS: BP 128/72; RESP 16; O2SAT 98
[2018-03-06 08:24] VITALS: O2SAT 98
--- NOTE | 2018-03-06 08:28 | PM.DS.1 ---
History of Present Illness Date Patient Seen: 03/06/18 Time Patient Seen: 08:28 Chief complaint: NEEDS ULTRASOUND Narrative: 58-year-old female presents with increasing abdominal pain and nausea. She has had intermittent pain for the past several weeks she has been having increasing fevers. She has been on a low carb diet has lost 60 lb over the past several months. She does have a history of diverticulosis and had a colonoscopy about 2 years ago had a polyp removed at that time. Discharge Providers Date of admission: 03/04/18 22:29 Primary care physician: Alicia Snyder PA-C Consults: 03/05/18 08:30 Consult to Physician Routine Comment: Consulting Provider: Louis Mason Reason for consultation: diverticulitis Has provider been notified: Yes Discharge provider: MUSA Montez Summary Discharge Diagnosis: 1. Acute diverticulitis 2. Hypertension 3. Diabetes type 2 Hospital Course: This is a summary of a 2 day hospitalization for this 50-year-old pleasant female who was admitted with chief complaint of upper abdominal pain. CT of the abdomen showed free air, abscess, no dilated loops of small bowel with a large intestine. There are no solid organ lesions. There was extensive diverticulosis colon with thickening of the transverse colon consistent with diverticulitis. General surgery was consulted and no acute surgical intervention is needed at this point time. She was placed on IV Levaquin and Flagyl with improvement in her symptoms over night. Her hypertension type 2 diabetes been managed well with her home medications. Her white blood cell count went from 15 down to 3.8 this morning and has been afebrile. She has been on low residue diet since admission and once her symptoms disappear she may start on a high fiber with fiber supplements and increased fluid intake. She will be discharged on a total of a 2 week course of Flagyl and Levaquin. We believe she does not require colonoscopy at this time but should be followed up and have her routine surveillance exam in 1 year. She has recommended follow-up with her primary care provider in 1 week and with surgery in 2 weeks. Status at Discharge Functional status at discharge: independent ambulation Overall status at discharge: patient is progressing back to baseline Time Spent with Patient Greater than 30 minutes Exam Vital Signs (past 8 hours): - 03/06/18 01:44 03/06/18 05:36 03/06/18 08:23 Temperature 98.2 F 98.1 F Pulse Rate 51 L 62 Respiratory Rate 16 16 16 Blood Pressure 126/65 H 117/57 L 128/72 H Pulse Oximetry 96 96 98 03/06/18 08:24 Temperature Pulse Rate Respiratory Rate Blood Pressure Pulse Oximetry 98 Oxygen Delivery Method Room Air Oxygen Flow Rate 0 Narrative Exam Narrative: Patient states she is feeling much better this morning. Const General: cooperative, healthy appearing, comfortable, well developed and well groomed Nutritional Appearance: overweight Orientation: alert, awake and oriented x3 HENMT Head: normal to inspection, normocephalic and atraumatic Eyes General: appearance normal, both eyes and all related structures Pupils: PERRL Neck Neck: normal visual inspection, trachea midline and supple Chest Chest: normal inspection of the chest Resp Effort & Inspection: normal respiratory effort and able to speak in complete sentences Auscultation: clear to auscultation bilaterally Cardio Rhythm: regular rhythm Heart Sounds: S1 normal, S2 normal and murmur systolic II/ and at the right sternal border GI Inspection: normal to inspection Palpation: soft Auscultation: normal bowel sounds Other: Tender to deeper palpation across the transverse colon. Other: A voiding without difficulty. Skin General: no rashes or lesions noted Neuro General: alert, awake and oriented x3 Cognition: normal cognition Speech: speech normal Gait: normal gait Motor: muscle tone normal throughout Sensory Exam: no sensory deficits noted Extrem General: normal to inspection, no pedal edema and no calf tenderness Psych Appearance: grossly normal Mood: congruent mood Affect: normal affect Attitude: cooperative Thought Process: normal Thought Content: normal Judgment: judgment good Objective Labs Result Diagrams: 03/06/18 06:45 03/06/18 06:45 Labs: Laboratory Results - last 24 hr 03/06/18 03/06/18 06:45 06:45 WBC 3.8 L D RBC 4.08 Hgb 12.0 Hct 36.0 MCV 88.3 MCH 29.5 MCHC 33.4 RDW 14.5 Plt Count 139 L Neut % (Auto) 64.6 D Lymph % (Auto) 22.0 L [place] % (Auto) 8.6 Eos % (Auto) 3.8 Baso % (Auto) 1.0 Neut # (Auto) 2400 L Sodium 140 Potassium 3.9 Chloride 103 Carbon Dioxide 29 BUN 9 Creatinine 0.50 L Estimated GFR > 60.0 BUN/Creatinine Ratio 18.0 Glucose 99 Calcium 8.7 Total Bilirubin 0.3 AST 9 L ALT 26 Alkaline Phosphatase 45 Total Protein 5.9 L Albumin 3.7 Globulin 2.2 Albumin/Globulin Ratio 1.7 PROCEDURE: CT ABDOMEN PELVIS W CON INDICATIONS: abdominal pain, nausea, fever TECHNIQUE: After the administration of oral and intravenous contrast, 5 mm thick sections acquired from the diaphragms to the symphysis. 5 mm thick coronal and sagittal reformats were performed. For radiation dose reduction, the following was used: automated exposure control, adjustment of mA and/or kV according to patient size. COMPARISON: [facility], CT, ABDOMEN/PELVIS WITH CONTRAST, 06/12/2016, 12:56. FINDINGS: Image quality: Excellent. ABDOMEN: Lung bases: Lung bases are clear. Heart size is normal. Solid organs: Liver is normal in size and enhancement. Gallbladder demonstrates calculi within its lumen. Biliary system is non-dilated. Pancreas enhances normally. Spleen is normal in size and enhancement. No adrenal nodules. Kidneys are normal in size and enhancement, without hydronephrosis. Peritoneum and bowel: Stomach and small bowel are within normal limits. Appendix is normal. Colon is nondistended. There is diverticulosis of the transverse, descending, and sigmoid colon. Within the mid transverse colon, there is a focal region of severe colonic wall thickening, and moderate surrounding fat stranding. There appears to be an inflamed diverticulum protruding anteriorly from the mid transverse colon. No free fluid or air. Nodes and vessels: No retroperitoneal or mesenteric adenopathy. Aorta and inferior vena cava are normal in caliber. Miscellaneous: No ventral hernias. PELVIS: Genitourinary: Bladder wall thickness is normal. 25 mm diameter left ovarian cyst is present, and is increased. Miscellaneous: No inguinal hernias or adenopathy. Bones: No suspicious bony lesions. No vertebral body compression fractures. IMPRESSION: 1. Findings most suggestive of severe acute diverticulitis of the mid transverse colon without pericolonic abscess. However, given the degree of wall thickening, colonoscopy is recommended to exclude the less likely possibility of underlying malignancy. 2. Cholelithiasis. 3. Left ovarian cyst in a presumably postmenopausal female; gynecological consultation is recommended. Dictated by: Benjamin Garrison M.D. on 03/04/2018 at 21:10 Approved by: Benjamin Garrison M.D. on 03/04/2018 at 21:13 Discharge Plan Discharge Plan Patient Disposition: Home, Self-Care Provider Discharge Instructions Diet: Diet as Tolerated Diet comment: Low fiber/low residue until symptoms disappear. Then changed to high fiber Activity: As tolerated Oxygen: Room air Wound Care Report to your healthcare provider any signs of infection, such as:: chills, fever, night sweats and increased pain Discharge Data Primary Care Provider: Alicia Snyder Attending Provider: Laura Ash Admles Date/Time: 03/04/18 22:29
[2018-03-06 08:38] VITALS: BP 108/54; PULSE 57; RESP 16; TEMP 36.7; O2SAT 98
--- NOTE | 2018-03-06 08:49 | P.PN_ITS ---
Subjective Date Patient Seen: 03/06/18 Time Patient Seen: 08:00 Interval history: Passing flatus. No bowel movement. Feels much more comfortable compared to yesterday but still has some mild residual epigastric pain just above the umbilicus. Pain is significantly less than at the time of admission. Denies any fever or chills. No nausea or vomiting. Tolerating her low residue diet without issues. Reports normal bladder function. Ambulating without difficulty. Exam Vital Signs (past 8 hours): - 03/06/18 01:44 03/06/18 05:36 03/06/18 08:23 Temperature 98.2 F 98.1 F Pulse Rate 51 L 62 Respiratory Rate 16 16 16 Blood Pressure 126/65 H 117/57 L 128/72 H Pulse Oximetry 96 96 98 03/06/18 08:24 Temperature Pulse Rate Respiratory Rate Blood Pressure Pulse Oximetry 98 Oxygen Delivery Method Room Air Oxygen Flow Rate 0 Narrative Exam Narrative: Well-nourished well-developed female in no acute distress. Alert oriented x3. Lying comfortably in bed this morning. Regular rate and rhythm Remains afebrile and otherwise completely hemodynamically stable Abdomen is soft and nondistended. She remains mildly tender in the epigastric region but certainly without any guarding or rebound. She is much less tender than at the time of admission. Objective Labs Result Diagrams: 03/06/18 06:45 03/06/18 06:45 Labs: Laboratory Results - last 24 hr 03/06/18 03/06/18 06:45 06:45 WBC 3.8 L D RBC 4.08 Hgb 12.0 Hct 36.0 MCV 88.3 MCH 29.5 MCHC 33.4 RDW 14.5 Plt Count 139 L Neut % (Auto) 64.6 D Lymph % (Auto) 22.0 L [place] % (Auto) 8.6 Eos % (Auto) 3.8 Baso % (Auto) 1.0 Neut # (Auto) 2400 L Sodium 140 Potassium 3.9 Chloride 103 Carbon Dioxide 29 BUN 9 Creatinine 0.50 L Estimated GFR > 60.0 BUN/Creatinine Ratio 18.0 Glucose 99 Calcium 8.7 Total Bilirubin 0.3 AST 9 L ALT 26 Alkaline Phosphatase 45 Total Protein 5.9 L Albumin 3.7 Globulin 2.2 Albumin/Globulin Ratio 1.7 Assessment & Plan Plan: Assessment/Plan Narrative: 58-year-old female with resolving diverticulitis of the transverse colon. She is much improved remains afebrile. White blood cell count is unremarkable. She may continue low residue diet from my perspective and discharge to home today. Once her acute symptoms have completely resolved and I would recommend high-fiber diet with fiber supplementation daily as well as copious water. We discussed her intake of at least eight 8 oz glasses of water daily. Would continue her antibiotics for a total 2 week course. She may be converted to oral Levaquin and Flagyl for the next 12 days or so. Follow up with her family physician would be appropriate. She may follow up with me as needed. Again, I do not believe he requires colonoscopy until she is scheduled for surveillance one year from now at less she continues to have recurring episodes or other abdominal symptoms. I discussed all these issues with her in detail. All questions were answered to her satisfaction, and she voiced understanding.
[2018-03-06] MEDS: METFORMIN HCL 500 MG TABLET PO (09:29)
[2018-03-06 09:31] VITALS: BP 134/61; PULSE 54
[2018-03-06] MEDS: hydroCHLOROthiazide 12.5 MG CAPSULE PO (09:31)
[2018-03-06] MEDS: LISINOPRIL 10 MG TABLET PO (09:31)
--- NOTE | 2018-03-06 10:09 | PC.NURSE ---
Addendum entered by Chelo Andersen R.N. 03/06/18 12:22: Discharge instructions reviewed with pt and verbalizes understanding on f/u diet and care. IV d/c'd. Pt transferred downstairs to personal vehicle. [place] OK'd pt to drive herself home. Pt left with all belongings. Original Note: Pt is A&Ox3; cooperative. Hyperactive BTs auscultated, soft and tender with slight distention noted across abd. Pain intermittent, tolerating low residue diet without n/v. Pt expresses eagerness to d/c home this morning.
== END 2018-03-06 12:26 | disposition home or self-care (01) ==
LOC: ED 22:12 → AC 03-05 09:30
PROVIDERS: Internal Medicine; Admitting Provider Internal Medicine; Emergency Provider Internal Medicine; Family Provider Physician Assistant; PCP Physician Assistant; Visit Provider Internal Medicine
DX: K57.32 Diverticulitis of large intestine without perforation or abscess without bleeding (principal); R10.9 Unspecified abdominal pain; R11.0 Nausea; I10 Essential (primary) hypertension; E11.9 Type 2 diabetes mellitus without complications; Z79.84 Long term (current) use of oral hypoglycemic drugs; K80.20 Calculus of gallbladder without cholecystitis without obstruction; N83.202 Unspecified ovarian cyst, left side
CPT/HCPCS: 36415; 36591; 74177; 80053; 81003; 83690; 85025; 96361; 96365; 96368; 96375; 99282; 99285; G0378; J1170; J1200; J1885; J1956; J2405; J7050; Q9967

== ENCOUNTER → 2018-03-24 07:08 | Outpatient (CLI) | payer OTHER, SELFPAY ==
[2018-03-06 09:05] VITALS: BMI 34.0
--- NOTE | 2018-03-24 07:10 | DI.US.S_ITS ---
PROCEDURE: US PELVIC COMPLETE INDICATIONS: LEFT OVARIAN CYST ON CT TECHNIQUE: Real-time scanning was performed of the pelvic organs, with image documentation. Additional endovaginal scanning was necessary due to incomplete visualization of the adnexal and endometrial structures by transabdominal scanning. COMPARISON: None. FINDINGS: Transabdominal scanning: Limited scanning through the kidneys shows no hydronephrosis. The kidneys measure 12.2 CM right internal one CM left. No pathologic free abdominal or pelvic fluid. Endovaginal scanning: Uterus: Uterus is normal in size at 3.5 x 5.3 x 7.3 cm. The endometrium measures 2.9 mm in combined thickness. Ovaries: The right ovary appears normal measuring 16 x 24 x 24 mm. The left ovary measures 27 x 36 x 39 mm and contains 2 minimally complex cysts measuring 19 x 23 x 26 mm and 12 x 12 x 18 mm, both containing low level internal echoes. IMPRESSION: 1. Normal uterus and right ovary. 2. Left ovary contains minimally complex cysts, the largest showing maximum diameter of 2.6 cm. No specific recommendation for followup of cysts measuring less than 3 cm in early post menopause. Dictated by: Mack Vasquez M.D. on 03/24/2018 at 8:30 Approved by: Mack Vasquez M.D. on 03/24/2018 at 8:34
== END ==
PROVIDERS: Family Provider Physician Assistant; PCP Physician Assistant; Visit Provider Physician Assistant
DX: N83.292 Other ovarian cyst, left side (principal)
CPT/HCPCS: 76830; 76856

== ENCOUNTER → 2018-05-20 09:46 | Outpatient (CLI) | payer OTHER, SELFPAY ==
[2018-03-06 09:05] VITALS: BMI 34.0
== END ==
PROVIDERS: Family Provider Physician Assistant; PCP Physician Assistant; Visit Provider Physician Assistant
DX: L02.91 Cutaneous abscess, unspecified (principal)
CPT/HCPCS: 87070; 87205

== ENCOUNTER → 2018-05-20 09:52 | Outpatient (CLI) | payer OTHER, SELFPAY ==
[2018-03-06 09:05] VITALS: BMI 34.0
--- NOTE | 2018-05-20 09:53 | DI.RAD.S_ITS ---
PROCEDURE: XR TIBIA FUBULA RT 2V INDICATIONS: Trauma to R carrillo x 1week TECHNIQUE: 2 views of the tibia and fibula were acquired. COMPARISON: None. FINDINGS: Bones: No acute fractures or dislocations. No suspicious bony lesions. Small to moderate-sized plantar and Achilles spurs of the calcaneus are present. There is also an enthesophyte at the patellar tendon attachment onto the patella. Soft tissues: No suspicious soft tissue calcifications or masses. Mild pretibial edema is present. IMPRESSION: 1. No acute osseous abnormality of the right tibia or fibula. 2. Mild pretibial edema. Dictated by: David Rojas M.D. on 05/20/2018 at 9:32 Approved by: David Rojas M.D. on 05/20/2018 at 9:33
== END ==
PROVIDERS: PCP Physician Assistant; Visit Provider Physician Assistant
DX: M79.604 Pain in right leg (principal); S89.91XA Unspecified injury of right lower leg, initial encounter; R60.0 Localized edema
CPT/HCPCS: 73590; 87070; 87077; 87147; 87205

== ENCOUNTER 2018-05-22 08:25 | Inpatient (IN) | payer OTHER, SELFPAY ==
[2018-03-06 09:05] VITALS: BMI 34.0
[2018-05-22] VITALS (8 sets, daily range): BP systolic 130–155; BP diastolic 72–95; PULSE 59–73; RESP 16–20; TEMP 36.4–36.8; O2SAT 93–97; BMI 32.5
--- NOTE | 2018-05-22 | DI.MRI.S_ITS ---
PROCEDURE: MR LOWER LEG RT WO/W CON INDICATIONS: Right carrillo wound TECHNIQUE: Noncontrast coronal T1 spin echo and STIR, sagittal T1 spin echo with fat saturation and STIR, axial T1 spin echo and T2 fast spin echo with fat saturation. After the administration of contrast, axial/sagittal/coronal T1 spin echo with fat saturation through the right lower leg.. COMPARISON: None. FINDINGS: Image quality: Excellent. Bones: The visualized bone marrow demonstrates normal signal on all sequences. The overlying cortex appears intact. No abnormal intraosseous enhancement. No periosteal reaction or cortical thickening. Soft tissues: Soft tissue ulceration with surrounding edema is noted involving proximal to mid portion of anterior lower leg along anterior cortex of the tibia shaft. No soft tissue masses are visualized. Mild peripheral contrast enhancement in this region is noted. No drainable fluid collection is seen. The scanned muscles demonstrate normal overall bulk and internal signal. Subcutaneous tissues appear normal as well. No other abnormal soft tissue enhancement. IMPRESSION: 1. Ulceration and surrounding cellulitis in anterior right lower leg soft tissue anterior to proximal to mid tibia shaft. No drainable abscess collection. No soft tissue mass. No other area of abnormal enhancement. 2. No evidence of osteomyelitis. No marrow edema. No fracture or dislocation. Dictated by: Abhay Stanley M.D. on 05/22/2018 at 14:36 Approved by: Abhay Stanley M.D. on 05/22/2018 at 14:46
[2018-05-22] MEDS: CEFAZOLIN 2 GM/100 ML FROZ.PIGGY IV (09:28)
[2018-05-22] MEDS: SODIUM CHLORIDE 0.9% 1,000 ML 1000 ML IV (09:29)
[2018-05-22 09:32] LABS: Add Manual Diff / Slide Review NO; Basophils Percent Auto 0.6 % (0-2); Eosinophils Percent Auto 2.4 % (2-4); Hematocrit 40.7 % (36-46); Lymphocytes Percent Auto 14.6 % (25-40); Mean Corpuscular HGB Conc 34.4 % (30-36); Mean Corpuscular Hemoglobin 30.2 PG (26-34); Mean Corpuscular Volume 87.7 fL (80-100); Monocytes Percent Auto 9.1 % (3-14); Neutrophils Absolute Auto 6000 /uL (3000-5900); Neutrophils Percent Auto 73.3 % (50-75); Platelet Count 215 X10^3/uL (150-400); Red Blood Cell Count 4.64 X10^6/uL (4.0-5.2); Red Cell Distribution Width 14.3 % (11.6-14.8); White Blood Cell Count 8.2 X10^3/uL (4.5-11.0)
[2018-05-22 10:03] LABS: BUN Creatinine Ratio 21.4 (6-22); Blood Urea Nitrogen 15 mg/dL (7-17); Calcium 9.5 mg/dL (8.4-10.2); Carbon Dioxide 27 mmol/L (22-32); Chloride 102 mmol/L (98-107); Estimated Glomerular Filt Rate > 60.0 mL/min (>60); Glucose 100 mg/dL (70-100); HEMOLYSIS < 15 (0-50); Potassium 4.3 mmol/L (3.4-5.1); Sodium 144 mmol/L (137-145)
[2018-05-22 10:07] LABS: Procalcitonin < 0.05 ng/mL (<0.5)
[2018-05-22] MEDS: INFLUENZA VACCINE 0.5 ML SYRINGE IM (10:35)
[2018-05-22] MEDS: OXYCODONE/ACETAMINOPHEN 5/325 TABLET 2 TAB PO ×2 (11:48→20:11)
--- NOTE | 2018-05-22 13:01 | PC.NURSE ---
Pt admitted with nonhealing draining wound on right carrillo that is very painful at this time. Seen by Dr Smith and given two percocet which were effective for pain. Plan to do imaging of wound to rule out abscess formation. Wound assessment and photo completed.
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
[2018-05-22] MEDS: DEXTROSE 5%-0.45% NS 1,000 ML 100 ML IV (13:36)
[2018-05-22] MEDS: MORPHINE 2 MG/ML INJ IV (14:52)
[2018-05-22] MEDS: CEFAZOLIN VIAL 3 GM in SODIUM CHLORIDE 0.9% 100 ML 200 ML IV (17:11)
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
--- NOTE | 2018-05-22 22:20 | PC.NURSE ---
SHIFT NOTE R carrillo wound dressed with ABD pad and paper tape, small amount of serosanguinous shadow drainage noted. pt states increased pain when RLE is moved from vertical position to horizontal position, not necessarily from weight bearing activities. states pain rated 5-6/10, administered PRN percocet. able to ambulate with bathroom with shuffling gait and FWW. call light within reach.
[2018-05-22] MEDS: ACETAMINOPHEN 325 MG TABLET 650 MG PO (23:57)
[2018-05-23] VITALS (7 sets, daily range): BP systolic 104–152; BP diastolic 62–85; PULSE 62–79; RESP 16–18; TEMP 36.2–36.9; O2SAT 94–98
[2018-05-23] MEDS: CEFAZOLIN VIAL 3 GM in SODIUM CHLORIDE 0.9% 100 ML 200 ML IV (01:14)
[2018-05-23] MEDS: DEXTROSE 5%-0.45% NS 1,000 ML 100 ML IV (02:10)
[2018-05-23] MEDS: OXYCODONE/ACETAMINOPHEN 5/325 TABLET 2 TAB PO ×3 (02:13→15:59)
[2018-05-23 05:08] LABS: Add Manual Diff / Slide Review NO; Basophils Percent Auto 0.3 % (0-2); Eosinophils Percent Auto 4.5 % (2-4); Hematocrit 40.2 % (36-46); Hemoglobin 13.4 g/dL (12.0-16.0); Lymphocytes Percent Auto 22.8 % (25-40); Mean Corpuscular HGB Conc 33.4 % (30-36); Mean Corpuscular Hemoglobin 29.6 PG (26-34); Mean Corpuscular Volume 88.8 fL (80-100); Monocytes Percent Auto 8.3 % (3-14); Neutrophils Absolute Auto 3700 /uL (3000-5900); Neutrophils Percent Auto 64.1 % (50-75); Platelet Count 188 X10^3/uL (150-400); Red Blood Cell Count 4.52 X10^6/uL (4.0-5.2); Red Cell Distribution Width 14.3 % (11.6-14.8); White Blood Cell Count 5.8 X10^3/uL (4.5-11.0)
[2018-05-23 05:11] LABS: Blood Urea Nitrogen 12 mg/dL (7-17); Calcium 8.8 mg/dL (8.4-10.2); Carbon Dioxide 27 mmol/L (22-32); Chloride 105 mmol/L (98-107); Estimated Glomerular Filt Rate > 60.0 mL/min (>60); Glucose 110 mg/dL (70-100); HEMOLYSIS < 15 (0-50); Potassium 4.5 mmol/L (3.4-5.1); Sodium 143 mmol/L (137-145)
[2018-05-23] MEDS: ONDANSETRON 4 MG/2 ML INJ IV (06:26)
[2018-05-23] MEDS: ENOXAPARIN 40 MG/0.4 ML SYRINGE SUBCUT (08:41)
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
--- NOTE | 2018-05-23 15:01 | PM.PN.1 ---
Subjective Date Patient Seen: 05/23/18 Time Patient Seen: 10:01 Interval history: History of present illness Follow-up on patient with right lower extremity calf region cellulitis with localized purulent abscess Group G streptococcal organism identified on culture Initial treatment was Ancef and switched to Augmentin 875 p.o. b.i.d. on May 23 Review of systems No chest pain or shortness of breath no nausea no fevers no chills Discomfort in the right leg is much less and and is tolerable Exam Vital Signs (past 8 hours): - 05/23/18 08:00 05/23/18 08:30 05/23/18 11:30 Temperature 98.5 F 98.5 F Pulse Rate 62 71 Respiratory Rate 18 18 Blood Pressure 104/62 137/74 Pulse Oximetry 96 94 94 Oxygen Delivery Method Room Air Oxygen Flow Rate 0 Narrative Exam Narrative: General appearance awake and alert no apparent distress Psychiatric well oriented to time place person mood is pleasant affect is appropriate Respiratory clear to auscultation with good airflow no wheezes no crackles Cardiovascular regular rate rhythm no murmurs +3 pulses to extremities GI benign soft nontender positive bowel sounds no masses no bruits Neurologic no focal neurologic changes cranial nerves 2-12 grossly intact Skin in the region of the cellulitis and the margins of apparently withdrawn based upon purposeful markings on the skin. Upon [place] region in the center where drainage had previously occurred. No packing indicated Objective Labs Result Diagrams: 05/23/18 04:40 05/23/18 04:40 Labs: Laboratory Results - last 24 hr 05/23/18 05/23/18 04:40 04:40 WBC 5.8 RBC 4.52 Hgb 13.4 Hct 40.2 MCV 88.8 MCH 29.6 MCHC 33.4 RDW 14.3 Plt Count 188 Neut % (Auto) 64.1 Lymph % (Auto) 22.8 L [place] % (Auto) 8.3 Eos % (Auto) 4.5 H Baso % (Auto) 0.3 Neut # (Auto) 3700 Sodium 143 Potassium 4.5 Chloride 105 Carbon Dioxide 27 BUN 12 Creatinine 0.60 Estimated GFR > 60.0 BUN/Creatinine Ratio 20.0 Glucose 110 H Calcium 8.8 Assessment & Plan Plan: Assessment/Plan Narrative: Cellulitis of right leg with localized drainage No packing of wound indicated Cultures positive for group B strep. Changed from IV Ancef to oral Augmentin 875 mg p.o. b.i.d. MRI of the right lower extremity did not identify the presence of any abscess May be good patient for discharge tomorrow. Wound care consult to see patient and may be able to follow in outpatient setting after discharge. (2) Morbid obesity with body mass index (BMI) of 40.0 to 44.9 in adult: Will monitor (3) Hypertension: lisinopril in the morning Time Spent With Patient Time with patient: 25 - 35 minutes (25 min) Quality VTE Deep Vein Thrombosis/Pulmonary Embolism Present on Admission: No
[2018-05-23] MEDS: AMOXICILLIN/CLAV 875/125 MG 1 TAB PO ×2 (15:59→21:19)
[2018-05-23] MEDS: ONDANSETRON 8 MG in SODIUM CHLORIDE 0.9% 50 ML 216 ML IV (17:27)
[2018-05-24 00:12] VITALS: O2SAT 96
[2018-05-24 00:48] VITALS: BP 127/74; PULSE 64; RESP 16; TEMP 36.7; O2SAT 96
[2018-05-24] MEDS: OXYCODONE/ACETAMINOPHEN 5/325 TABLET 2 TAB PO ×2 (03:44→09:51)
[2018-05-24 03:45] VITALS: BP 142/77; PULSE 66; RESP 16; TEMP 36.7; O2SAT 96
[2018-05-24] MEDS: DEXTROSE 5%-0.45% NS 1,000 ML 100 ML IV (03:45)
--- NOTE | 2018-05-24 05:36 | PC.NURSE ---
dressing changed, wound with purulent and serosanguinous drainage; absorbant pad and paper tape for dressing. Karissa-wound area is dark purple and swollen. Patient stating she feels much more mobile now, able to ambulate to bathroom with just a stand by assist. Pain controlled with percocet. IVF running as ordered. vital signs stable. adequate PO intake. No nausea.
[2018-05-24 07:58] VITALS: O2SAT 96
[2018-05-24 08:00] VITALS: BP 151/53; PULSE 68; RESP 16; TEMP 36.4; O2SAT 96
[2018-05-24] MEDS: ENOXAPARIN 40 MG/0.4 ML SYRINGE SUBCUT (08:06)
[2018-05-24] MEDS: AMOXICILLIN/CLAV 875/125 MG 1 TAB PO (08:07)
--- NOTE | 2018-05-24 09:06 | PM.DS.1 ---
History of Present Illness Date Patient Seen: 05/24/18 Time Patient Seen: 07:00 Chief complaint: Infection in R Calf Narrative: Patient is a very pleasant 58 years of age female with a cellulitis and punctate purulent drainage wound that was found to be absent of abscess when a follow-up MRI of the region was completed during hospital course. Patient was provided Ancef antibiotic for group G streptococcal infection that grew from the wound. Patient responded quite favorably to the antibiotic that is provided. Patient was transitioned to Augmentin 875 b.i.d. on March 23. Wound dressing by the nursing staff during hospital course. Requested a wound care consult to see the patient who may also see the patient in the outpatient setting. Wound care consult has not seen patient is yet. Will be discharging the patient home on Augmentin for another 8 days with wound care as directed by the nursing staff on discharge today. Patient can see her primary care physician in the next 3-5 days to check on the wound. If the wound care consult sees the patient today may also arrange for outpatient visit with the patient as well. Discharge Providers Date of admission: 05/22/18 09:14 Primary care physician: Alicia Snyder PA-C Discharge provider: Marcos Ghosh MD Discharge Date: 05/24/18 Summary Discharge Diagnosis: Cellulitis of right leg with localized drainage from a punctate, purulent centralized wound. No packing of wound indicated Cultures positive for group B strep. Changed from IV Ancef to oral Augmentin 875 mg p.o. b.i.d. on May 23 MRI of the right lower extremity did not identify the presence of any abscess once the central pustule wound extruded content. Wound care consult requested to see patient and perhaps follow in outpatient setting as well Alternatively, patient can see her PCP in the next few days close follow-up. Patient likely able to provide self-care regarding wound care dressing until see PCP Hypertension: Stable on discharge Continue lisinopril lisinopril Hospital Course: Patient is a very pleasant 58 years of age female with a cellulitis and punctate purulent drainage wound that was found to be absent of abscess when a follow-up MRI of the region was completed during hospital course. Patient was provided Ancef antibiotic for group G streptococcal infection that grew from the wound. Patient responded quite favorably to the antibiotic that is provided. Patient was transitioned to Augmentin 875 b.i.d. on March 23. Wound dressing by the nursing staff during hospital course. Requested a wound care consult to see the patient who may also see the patient in the outpatient setting. Wound care consult has not seen patient is yet. Will be discharging the patient home on Augmentin for another 8 days with wound care as directed by the nursing staff on discharge today. Patient can see her primary care physician in the next 3-5 days to check on the wound. If the wound care consult sees the patient today may also arrange for outpatient visit with the patient as well. Status at Discharge Cognitive/behavioral status at discharge: Well oriented no apparent distress anxious for discharge Functional status at discharge: independent ambulation Time Spent with Patient Greater than 30 minutes (35 min) Exam Vital Signs (past 8 hours): - 05/24/18 03:45 05/24/18 07:58 05/24/18 08:00 Temperature 98.1 F 97.6 F Pulse Rate 66 68 Respiratory Rate 16 16 Blood Pressure 142/77 H 151/53 H Pulse Oximetry 96 96 96 Oxygen Delivery Method Room Air Oxygen Flow Rate 0 Narrative Exam Narrative: Awake and alert no apparent distress anxious for discharge Patient is well oriented in good spirits affect normal Respiratory clear to auscultation with good air flow Cardiovascular a very mild faint systolic murmur best heard over the aortic valve which could be interpreted as a valvular flow murmur Patient notes she has had this murmur for years. GI benign soft nontender Extremities warm with good pulses no edema Skin area of involvement with the punctate wound and cellulitis to the right leg with margins aditya during the healing process wound is fairly clean based and will cared for by the nursing staff during hospital course Objective Labs Result Diagrams: 05/23/18 04:40 05/23/18 04:40 Discharge Plan Discharge Plan Patient Disposition: Home Discharge Med Rec/Prescriptions Prescriptions: New amoxicillin-pot clavulanate 875-125 mg tablet 1 tab PO BID Qty: 16 RF: 0 Continue mupirocin 2 % ointment 1 applictn TOP DAILY Qty: 30 RF: 0 lisinopril-hydrochlorothiazide 10 MG/12.5 MG tablet 1 tab PO QDAY Qty: 30 RF: 3 Discontinued sulfamethoxazole-trimethoprim [Bactrim DS] 800-160 mg tablet 1 tab PO BID 10 Days Qty: 20 RF: 0 Follow up/Referrals: Alicia Snyder PA-C [Primary Care Provider] - 3-5 Days (to check healing of right leg wound ) Provider Discharge Instructions Diet: Diet as Tolerated and Regular Skin/Wound/Dressing Care Skin care: wound care as directed by nurse on discharge. Report to your healthcare provider any signs of infection, such as:: chills, fever, increased pain and unusual drainage Discharge Data Primary Care Provider: Alicia Snyder Attending Provider: Eboni Smith Admit Date/Time: 05/22/18 09:14 Quality VTE Deep Vein Thrombosis/Pulmonary Embolism Present on Admission: No
--- NOTE | 2018-05-24 10:41 | PC.NURSE ---
discharge pt states pain controlled with medication. d/c instructions provided to pt and her daughter. Notified to f/u with PCP next week as well as to call for any questions or concerns. dressing changed prior to d/c. old dressing removed and gauze applied over wound and secured with paper tape and gauze netting. pt aware to change dressing at home and to look for increased redness or swelling. pt states she took all belongings with her. 2 Rx sent home with pt at d/c. pt left in w/c with RN escort and daughter to car to go home.
--- NOTE | 2018-05-24 11:16 | CM.DPC ---
DCP: continued: case received and discussed in Team Rounds. Pt is ok'd for home on oral antibiotics. She will followup with her PCP 3-5 days.
== END 2018-05-24 10:40 | disposition home or self-care (01) | DRG 603 ==
LOC: ED 09:04 → AC 09:16
PROVIDERS: Admitting Provider Internal Medicine; Emergency Provider Emergency Medicine; Family Provider Physician Assistant; PCP Physician Assistant; Visit Provider Internal Medicine
DX: L03.115 Cellulitis of right lower limb (principal); B95.1 Streptococcus, group B, as the cause of diseases classified elsewhere; E66.9 Obesity, unspecified; Z68.35 Body mass index [BMI] 35.0-35.9, adult; I10 Essential (primary) hypertension; F41.9 Anxiety disorder, unspecified; J45.909 Unspecified asthma, uncomplicated; S89.91XA Unspecified injury of right lower leg, initial encounter; Z23 Encounter for immunization
CPT/HCPCS: 36415; 36591; 73720; 80048; 84145; 85025; 87070; 87077; 87147; 87205; 90471; 90656; 96365; 99283; 99284; A9579; J0690; J1650; J2270; J2405; Q2038

== ENCOUNTER → 2018-09-25 07:45 | Outpatient (CLI) | payer OTHER, SELFPAY ==
[2018-05-22 10:07] VITALS: BMI 32.5
[2018-09-25 08:42] LABS: Alanine Aminotransferase 37 IU/L (9-52); Albumin 4.8 g/dL (3.5-5.0); Albumin Globulin Ratio 1.6 (1.0-2.8); Alkaline Phosphatase 67 U/L (38-126); Aspartate Aminotransferase 22 IU/L (14-36); BUN Creatinine Ratio 31.7 (6-22); Bilirubin Total 0.3 mg/dL (0.2-1.3); Blood Urea Nitrogen 19 mg/dL (7-17); Calcium 9.6 mg/dL (8.4-10.2); Carbon Dioxide 30 mmol/L (22-32); Chloride 100 mmol/L (98-107); Cholesterol 183 mg/dL (140-199); Estimated Glomerular Filt Rate > 60.0 mL/min (>60); Glucose 98 mg/dL (70-100); HDL Cholesterol 49 mg/dL (40-60); HEMOLYSIS < 15 (0-50); LDL Cholesterol Calculated 101 mg/dL (<100); Potassium 4.3 mmol/L (3.4-5.1); Sodium 141 mmol/L (137-145); Total Protein 7.8 g/dL (6.3-8.2); Triglycerides 163 mg/dL (35-150)
== END ==
PROVIDERS: PCP Physician Assistant; Visit Provider Physician Assistant
DX: E66.01 Morbid (severe) obesity due to excess calories (principal); I10 Essential (primary) hypertension; Z68.41 Body mass index [BMI] 40.0-44.9, adult
CPT/HCPCS: 36415; 80053; 80061

== ENCOUNTER 2019-01-31 08:53 | Emergency (ER) | payer OTHER, SELFPAY ==
[2018-05-22 10:07] VITALS: BMI 32.5
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
[2019-01-31 09:06] VITALS: BP 165/86; PULSE 64; RESP 16; TEMP 37.2; O2SAT 98; BMI 83.2
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
[2019-01-31 10:17] VITALS: BP 144/82; PULSE 63; RESP 18; O2SAT 97
[2019-01-31 12:02] VITALS: BP 158/72; PULSE 58; RESP 20; TEMP 36.9; O2SAT 97
== END 2019-01-31 11:39 | disposition home or self-care (01) ==
PROVIDERS: Emergency Provider Emergency Medicine; PCP Physician Assistant
DX: S02.30XA Fracture of orbital floor, unspecified side, initial encounter for closed fracture (principal); V28.0XXA Motorcycle driver injured in noncollision transport accident in nontraffic accident, initial encounter
CPT/HCPCS: 70486; 99283; 99284

== ENCOUNTER 2019-05-20 08:54 | Day surgery (SDC) | payer OTHER, SELFPAY ==
[2018-05-22 10:07] VITALS: BMI 32.5
--- NOTE | 2019-05-20 | PATH_ITS ---
[facility] Accession Number: [id number] . 01 Material submitted: . PART A: colon - ASCENDING POLYP PART B: colon - TRANSVERSE POLYP PART C: sigmoid colon - SIGMOID POLYP . 02 Diagnosis: A. Ascending Colon, Polyp, Biopsy: Tubular adenoma. . B. Transverse Colon, Polyp, Biopsy: Tubular adenoma. . C. Sigmoid Colon, Polyp, Biopsy: Hyperplastic polyp. I 05/22/2019 1329 Local . 02 Electronically signed: . Theresa Austin MD, Pathologist NPI- [id number] . 01 Gross description: . Part A: ASCENDING POLYP: Received in formalin are 2 fragment(s) of neri, soft tissue measuring 0.1 x 0.1 x 0.1 cm to 0.3 x 0.2 x 0.2 cm which is entirely submitted and submitted entirely in 1 cassette(s) Part B: TRANSVERSE POLYP: Received in formalin is 1 fragment(s) of neri, soft tissue measuring 0.3 x 0.2 x 0.2 cm which is entirely submitted and submitted entirely in 1 cassette(s) Part C: SIGMOID POLYP: Received in formalin is 1 fragment(s) of neri, soft tissue measuring 0.2 x 0.2 x 0.2 cm which is entirely submitted and submitted entirely in 1 cassette(s) /[facility] 05/20/2019 2147 Local . 02 Pathologist provided ICD-10: D12.2, D12.3 . 02 CPT . 167517, 018225, 054649 Performed at: [address] [facility], [place], [place] [id number] MD Kobe Bates MD Phone: [phone] Performed at: [facility] [place] [address] [place] [id number] MD Theresa Austin MD Phone: [phone]
--- NOTE | 2019-05-20 08:24 | PM.HP.1 ---
History of Present Illness History of Present Illness Date Patient Seen: 05/20/19 Chief complaint: [id number] COLONOSCOPY Narrative: Patient is a 59 year old female who presented for colonoscopy. Last colonoscopy 03/14/2016, with history of polyps. Since her last office visit 05/10/16 she has had multiple episodes of recurrent diverticulitis. She also had abscess formation. She has not had repeat colonoscopy since 2016. Patient History Medical History Allergic rhinitis (Chronic 1977) Anemia (Resolved 2011) Anxiety (Chronic 1999) Asthma (Chronic 1999) Cholelithiasis (Chronic) Colon polyps (Resolved 03/14/16) Depression (Chronic 1999) Diverticular disease (Chronic 2015) Diverticulitis (Chronic) Diverticulosis (Chronic) Hearing loss (Chronic 2013) History of blood transfusion (Resolved 2014) HTN (hypertension) (Chronic) Hyperglycemia (Chronic) Kidney stones (Resolved 1984) Shoulder problem (Resolved Unknown) Tinnitus (Chronic) Surgical History H/O colonoscopy with polypectomy (Resolved 03/14/16) History of tonsillectomy (Resolved) Family History Mother Heart disease Stroke Cancer Alzheimer's disease Leukemia Father Alzheimer's disease Brother Cancer Brother Crohns disease Grandfather Heart disease Alzheimer's disease Grandmother No problems noted. Grandfather Cancer Leukemia Grandmother Cancer Liver cancer Sister No problems noted. Sister No problems noted. Social History household members: spouse Smoking Status: Never smoker second hand exposure: No alcohol intake: current substance use type: does not use Family & Social History Family History Mother Heart disease Stroke Cancer Alzheimer's disease Leukemia Father Alzheimer's disease Brother Cancer Brother Crohns disease Grandfather Heart disease Alzheimer's disease Grandmother No problems noted. Grandfather Cancer Leukemia Grandmother Cancer Liver cancer Sister No problems noted. Sister No problems noted. Social History: household members spouse Tobacco & Substance use: Smoking Status Never smoker alcohol intake current alcohol intake frequency a few times a month Substance Use Type does not use Meds Home Medications and Allergies Home Medications Medication Instructions Recorded Confirmed Type fluoxetine 20 mg capsule 20 mg PO DAILY #90 cap 04/06/19 05/20/19 Rx psyllium husk [Metamucil] 1 tbsp PO DAILY 05/20/19 05/20/19 History Allergies Allergy/AdvReac Type Severity Reaction Status Date / Time IVP DYE AdvReac Mild REALLY Uncoded 04/06/19 10:33 REALLY SLEEPY AND SNEEZING Review of Systems Review of Systems ROS Unobtainable: All systems reviewed & are unremarkable except as noted in HPI and below Exam Const General: cooperative, healthy appearing and comfortable Nutritional Appearance: well nourished Orientation: alert, awake and oriented x3 HENMT Head: normal to inspection, normocephalic and atraumatic Nose: external nose normal Resp Effort & Inspection: normal respiratory effort and able to speak in complete sentences Auscultation: clear to auscultation bilaterally Cardio Rate: regular rate Rhythm: regular rhythm Heart Sounds: S1 normal and S2 normal GI Palpation: soft and No tender Auscultation: normal bowel sounds Extrem General: normal to inspection Assessment & Plan Assessment & Plan narrative: 1. Personal history of colon polyps 2. History of recurrent diverticulitis - Colonoscopy today
[2019-05-20 09:37] VITALS: BP 156/78; PULSE 53; RESP 16; TEMP 36.6; O2SAT 96; BMI 36.1
[2019-05-20] MEDS: SODIUM CHLORIDE 0.9% 1,000 ML 70 ML IV (09:45)
--- NOTE | 2019-05-20 11:18 | PM.OP.ENDO ---
Operative Date/Time/Diagnoses Date of procedure: 05/20/19 Time of procedure: 10:57 Procedure Notes Procedure in detail: Surgeon: Anya Chowdary DO Procedure: Colonoscopy with polypectomy Preoperative diagnosis: 1. Personal history of colon polyps last colonoscopy March 14, 2016 2. History of recurrent diverticulitis Postoperative diagnosis: 1. Ascending colon polyp 7 mm removed with cold snare 2. Transverse colon polyp 5 mm removed with cold snare 3. Sigmoid polyp 2 mm removed with Jumbo forceps 4. Diverticulosis scattered throughout colon with greatest concentration in the sigmoid and descending colon 5. Grade 1 internal hemorrhoids Medications: Conscious sedation using 9 mg IV of Midazolam and 175 mcg IV of Fentanyl Preanesthesia Assessment An H and P was performed/updated and the Px?s ASA class is 2. The procedure was discussed in detail with the patient. The potential risks and complications including infection, bleeding, missed lesions, perforation, need for surgery in case of perforation, prolonged hospital stay, and were explained. A brief question and answer period was allotted and once all questions were answered, informed consent was obtained. The patient was brought back to the procedure room and placed on standard monitoring. The patient?s vital signs were monitored continuously throughout the entire procedure. Prior to starting, a timeout was performed to confirm the patient?s identity, allergies, medications, and procedure. Procedure in detail The patient was placed in left lateral decubitus position and once adequate sedation was obtained a JUAN J was performed. The digital rectal examination did not reveal any palpable lesions. The tip of the colonoscope was placed in the anal canal and advanced without difficulty all the way to the cecum which was identified by the appendiceal orifice and the ileocecal valve. Careful examination of all aguilera of the colon was performed with irrigation of any residual stool. Patient was found to have an ascending colon polyp 7 mm removed with cold snare. 5 mm colon polyp in the transverse colon removed with cold snare. 2 mm colon polyp removed with Jumbo forceps in the sigmoid colon. Diverticulosis was scattered throughout the entire colon. Grade 1 internal hemorrhoids were noted on retroflexion. The patient tolerated the procedure well and will be brought back to the recovery area to be discharged once criteria are met. The prep was judged to be good/excellent and adequate to identify polyps less than 5 mm. The withdrawal time was 11min. The total physician intraservice time was 21min. Complications There were no complications and estimated blood loss was minimal. Recommendations: Resume previous diet Continue outPx medications Follow up pathology results Repeat colonoscopy to be determined after pathology results are reviewed (3-5 years) Office follow up if persistent symptoms An emergency contact number was given to the patient for any complications related to the procedure Scope withdrawal time: 11min Sedation minutes: 21
[2019-05-20 11:22] VITALS: BP 113/72; PULSE 63; RESP 19; TEMP 36.8; O2SAT 97
[2019-05-20] MEDS: MIDAZOLAM 5 MG/5 ML VIAL IV (11:22)
[2019-05-20] MEDS: fentaNYL 250 MCG/5 ML INJ IV (11:22)
[2019-05-20 11:27] VITALS: BP 125/71; PULSE 72; RESP 22; O2SAT 95
[2019-05-20 11:32] VITALS: BP 120/68; PULSE 69; RESP 17; O2SAT 96
[2019-05-20 11:38] VITALS: BP 115/67; PULSE 62; RESP 18; TEMP 36.8; O2SAT 97
[2019-05-20 11:58] VITALS: BP 112/57; PULSE 51; RESP 16; TEMP 36.2; O2SAT 95
== END 2019-05-20 12:10 | disposition home or self-care (01) ==
PROVIDERS: Family Provider Nurse Practitioner Family; PCP Physician Assistant; Visit Provider Student in an Organized Health Care Education/Training Program
PROC: 0DJD8ZZ Inspection of Lower Intestinal Tract, Via Natural or Artificial Opening Endoscopic (ICD-10-PCS; CPT 45378; principal; 2019-05-20 10:30)
DX: Z86.010 Personal history of colon polyps (principal); K57.30 Diverticulosis of large intestine without perforation or abscess without bleeding; K64.0 First degree hemorrhoids; D12.2 Benign neoplasm of ascending colon; D12.3 Benign neoplasm of transverse colon; D12.5 Benign neoplasm of sigmoid colon
CPT/HCPCS: 45380; J2250; J3010

== ENCOUNTER → 2019-06-09 10:57 | Outpatient (CLI) | payer OTHER, SELFPAY ==
[2018-05-22 10:07] VITALS: BMI 32.5
--- NOTE | 2019-06-09 | DI.MG.S_ITS ---
BILATERAL DIGITAL SCREENING MAMMOGRAM 3D/2D WITH CAD: 06/09/2019 CLINICAL: Routine screening. Comparison is made to exams dated: 01/25/2014 mammogram and 07/27/2013 mammogram - [facility]. The tissue of both breasts is heterogeneously dense. This may lower the sensitivity of mammography. Current study was also evaluated with a Computer Aided Detection (CAD) system. There is a new equal density focal asymmetry in the left breast at 1 o'clock middle depth. There also is a new 0.9 cm oval focal asymmetry with an obscured margin in the left breast at 6 o'clock middle depth. No other significant masses, calcifications, or other findings are seen in either breast. IMPRESSION: INCOMPLETE: NEEDS ADDITIONAL IMAGING EVALUATION The new equal density focal asymmetry in the left breast at 1 o'clock middle depth is indeterminate. Additional views with possible ultrasound are recommended. The new 0.9 cm oval focal asymmetry in the left breast at 6 o'clock middle depth is indeterminate. Additional views with possible ultrasound are recommended. This exam was interpreted at Station ID: [id number]. NOTE: For mammograms, a report in lay terms will be sent to the patient. Approximately 15% of breast malignancies will not be visualized mammographically. In the management of a palpable breast mass, a negative mammogram must not discourage biopsy of a clinically suspicious lesion. Electronically Signed By: Chente Owusu M.D. aty/:06/09/2019 11:53:03 letter sent: Additional Imaging Needed ACR BI-RADS Category 0: Incomplete [id number]
== END ==
PROVIDERS: PCP Physician Assistant; Visit Provider Physician Assistant
DX: Z12.31 Encounter for screening mammogram for malignant neoplasm of breast (principal)
CPT/HCPCS: 77063; 77067

== ENCOUNTER → 2019-07-14 14:13 | Outpatient (CLI) | payer OTHER, SELFPAY ==
[2018-05-22 10:07] VITALS: BMI 32.5
--- NOTE | 2019-07-14 | DI.MG.S_ITS ---
UNILATERAL LEFT DIGITAL DIAGNOSTIC MAMMOGRAM 3D/2D WITH ADDITIONAL VIEWS: 07/14/2019 CLINICAL: Additional evaluation requested from prior study. Comparison is made to exams dated: 06/09/2019 mammogram - [facility], 01/25/2014 mammogram, and 07/27/2013 mammogram - [facility]. The tissue of left breast is heterogeneously dense. This may lower the sensitivity of mammography. There is a 1.2 cm oval equal density mass with a spiculated margin in the left breast at 6 o'clock middle depth. No other significant masses or calcifications are seen in the breast. IMPRESSION: INCOMPLETE: NEEDS ADDITIONAL IMAGING EVALUATION The 1.2 cm oval equal density mass in the left breast is indeterminate. An ultrasound is recommended. This exam was interpreted at Station ID: [id number]. NOTE: For mammograms, a report in lay terms will be sent to the patient. Approximately 15% of breast malignancies will not be visualized mammographically. In the management of a palpable breast mass, a negative mammogram must not discourage biopsy of a clinically suspicious lesion. Electronically Signed By: Kobe vazquez/ren:07/14/2019 15:18:42 ACR BI-RADS Category 0: Incomplete 3340F
--- NOTE | 2019-07-14 14:16 | DI.US.S_ITS ---
LIMITED ULTRASOUND OF LEFT BREAST AND AXILLA: 07/14/2019 CLINICAL: Patient returns today to evaluate a focal asymmetry in the left breast. Comparison is made to exams dated: 07/14/2019 mammogram, 06/09/2019 mammogram - [facility], 01/25/2014 mammogram, and 07/27/2013 mammogram - [facility]. Color flow and real-time ultrasound of the left breast 6-7 o'clock, and axilla regions were performed on the areas of interest. There is a 1 cm x 0.6 cm x 0.7 cm oval mass with a spiculated margin in the left breast at 7 o'clock middle depth. This oval mass is hypoechoic with posterior acoustic shadowing. This correlates with mammography findings. Color flow imaging demonstrates that there is vascularity present. No significant abnormalities were seen sonographically in the left axilla. IMPRESSION: HIGHLY SUGGESTIVE OF MALIGNANCY The 1 cm x 0.6 cm x 0.7 cm oval mass in the left breast is highly suggestive of malignancy. An ultrasound guided biopsy is recommended. The findings were discussed with the patient at the conclusion of the study by Dr. Briones. This exam was interpreted at Station ID: [id number]. Electronically Signed By: Kobe Francis M.D. dderic/:07/14/2019 15:22:47 letter sent: Biopsy Required Ultrasound BI-RADS: 5 Highly suggestive of malignancy
== END ==
PROVIDERS: PCP Physician Assistant; Visit Provider Physician Assistant
DX: R92.8 Other abnormal and inconclusive findings on diagnostic imaging of breast (principal); N63.24 Unspecified lump in the left breast, lower inner quadrant
CPT/HCPCS: 76642; 77065; G0279

== ENCOUNTER → 2020-06-20 12:02 | Outpatient (CLI) | payer OTHER, SELFPAY ==
[2018-05-22 10:07] VITALS: BMI 32.5
--- NOTE | 2020-06-20 | DI.MG.S_ITS ---
UNILATERAL RIGHT DIGITAL SCREENING MAMMOGRAM 3D/2D WITH CAD POST MASTECTOMY: 06/20/2020 CLINICAL: Routine screening. Breast cancer. Comparison is made to exams dated: 06/09/2019 mammogram - [facility], 01/25/2014 mammogram, and 07/27/2013 mammogram - [facility]. There are scattered fibroglandular elements in right breast. Current study was also evaluated with a Computer Aided Detection (CAD) system. There are benign calcifications in the right breast. There also is a biopsy clip in the right breast. No significant masses, calcifications, or other findings are seen in the breast. There has been no significant interval change. IMPRESSION: BENIGN There is no mammographic evidence of malignancy. A 1 year screening mammogram is recommended. This exam was interpreted at Station ID: [id number]. NOTE: For mammograms, a report in lay terms will be sent to the patient. Approximately 15% of breast malignancies will not be visualized mammographically. In the management of a palpable breast mass, a negative mammogram must not discourage biopsy of a clinically suspicious lesion. Electronically Signed By: Iza suárez/ren:06/20/2020 17:26:42 letter sent: Normal Exam ACR BI-RADS Category 2: Benign Finding(s) 3342F
== END ==
PROVIDERS: PCP Physician Assistant; Referring Provider Physician Assistant; Visit Provider Physician Assistant
DX: Z12.31 Encounter for screening mammogram for malignant neoplasm of breast (principal); Z85.3 Personal history of malignant neoplasm of breast
CPT/HCPCS: 77063; 77067

== ENCOUNTER → 2020-08-30 07:10 | Outpatient (CLI) | payer OTHER, SELFPAY ==
[2018-05-22 10:07] VITALS: BMI 32.5
[2020-08-30 08:12] LABS: Add Manual Diff / Slide Review NO; Basophils Absolute Auto 100 /uL (0-100); Basophils Percent Auto 1.2 % (0-2); Eosinophils Absolute Auto 200 /uL (0-450); Eosinophils Percent Auto 3.9 % (2-4); Hematocrit 43.4 % (36-46); Hemoglobin 14.1 g/dL (12.0-16.0); Lymphocytes Absolute Auto 1400 /uL (1100-4500); Lymphocytes Percent Auto 21.9 % (25-40); Mean Corpuscular HGB Conc 32.6 % (30-36); Mean Corpuscular Hemoglobin 28.2 PG (26-34); Mean Corpuscular Volume 86.6 fL (80-100); Monocytes Absolute Auto 400 /uL (0-900); Monocytes Percent Auto 7.1 % (3-14); Neutrophils Absolute Auto 4100 /uL (1500-7000); Neutrophils Percent Auto 65.9 % (50-75); Platelet Count 220 X10^3/uL (150-400); Red Blood Cell Count 5.01 X10^6/uL (4.0-5.2); Red Cell Distribution Width 14.7 % (11.6-14.8); White Blood Cell Count 6.3 X10^3/uL (4.5-11.0)
[2020-08-30 08:30] LABS: Alanine Aminotransferase 30 IU/L (<35); Albumin 4.7 g/dL (3.5-5.0); Albumin Globulin Ratio 1.6 (1.0-2.8); Alkaline Phosphatase 97 U/L (38-126); Aspartate Aminotransferase 24 IU/L (14-36); BUN Creatinine Ratio 24.5 (6-22); Bilirubin Total 0.3 mg/dL (0.2-1.3); Blood Urea Nitrogen 13 mg/dL (7-17); Calcium 9.2 mg/dL (8.4-10.2); Carbon Dioxide 27 mmol/L (22-32); Chloride 104 mmol/L (98-107); Cholesterol 203 mg/dL (140-199); Estimated Glomerular Filt Rate > 60.0 mL/min (>60); Globulin 2.9 g/dL (1.7-4.1); Glucose 127 mg/dL (80-110); HDL Cholesterol 48 mg/dL (40-60); HEMOLYSIS 17 (0-50); LDL Cholesterol Calculated 123 mg/dL (<100); Potassium 4.3 mmol/L (3.4-5.1); Sodium 140 mmol/L (137-145); Total Protein 7.6 g/dL (6.3-8.2); Triglycerides 158 mg/dL (35-150)
== END ==
PROVIDERS: PCP Internal Medicine; Referring Provider Internal Medicine; Visit Provider Internal Medicine
DX: F41.9 Anxiety disorder, unspecified (principal); I10 Essential (primary) hypertension; J45.909 Unspecified asthma, uncomplicated
CPT/HCPCS: 36415; 80053; 80061; 85025

== ENCOUNTER → 2020-11-03 08:46 | Outpatient (CLI) | payer OTHER, SELFPAY ==
[2018-05-22 10:07] VITALS: BMI 32.5
[2020-11-03] MEDS: COVID-19 VACC #1, MRNA(MOD) 100 MCG/0.5 ML VIAL IM (08:56)
== END ==
PROVIDERS: PCP Internal Medicine; Visit Provider Internal Medicine
DX: Z23 Encounter for immunization (principal)
CPT/HCPCS: 0011A; 91301

== ENCOUNTER → 2020-11-25 09:34 | Outpatient (CLI) | payer OTHER, SELFPAY ==
[2018-05-22 10:07] VITALS: BMI 32.5
== END ==
PROVIDERS: PCP Internal Medicine; Visit Provider Student in an Organized Health Care Education/Training Program
DX: R30.0 Dysuria (principal)
CPT/HCPCS: 87077; 87086; 87186

== ENCOUNTER → 2020-12-01 08:40 | Outpatient (CLI) | payer OTHER, SELFPAY ==
[2018-05-22 10:07] VITALS: BMI 32.5
[2020-12-01] MEDS: COVID-19 VACC #2, MRNA(MOD) 100 MCG/0.5 ML VIAL IM (08:48)
== END ==
PROVIDERS: PCP Internal Medicine; Visit Provider Internal Medicine
DX: Z23 Encounter for immunization (principal)
CPT/HCPCS: 0012A; 91301

== ENCOUNTER → 2021-04-07 11:57 | Outpatient (CLI) | payer OTHER, SELFPAY ==
[2018-05-22 10:07] VITALS: BMI 32.5
--- NOTE | 2021-04-07 12:37 | DI.CT.S_ITS ---
PROCEDURE: CT ABDOMEN PELVIS W CON INDICATIONS: Diverticulitis of intestine, part unspecified. TECHNIQUE: After the administration of oral and intravenous contrast, axial sections were acquired from the lung bases to the pubic symphysis. Coronal and sagittal reformats were performed. For radiation dose reduction, the following was used: automated exposure control, adjustment of mA and/or kV according to patient size. COMPARISON:Located Within [facility], CT, CT ABDOMEN PELVIS W CON, 03/04/2018, 20:47. Located Within [facility], CT, ABDOMEN/PELVIS WITH CONTRAST, 06/12/2016, 12:56. FINDINGS: Image quality: Excellent. Lung bases: Unremarkable. Heart: No significant findings. ABDOMEN: Liver: Unremarkable. Gallbladder: There is a large gallstone within the gallbladder lumen, with a central rim of calcification peripherally encompassed by a radiolucent component of the gallstone with overall dimensions up to 3.9 x 4.3 cm. Acute cholecystitis or adjacent biliary obstruction is not found. Biliary ducts: Unremarkable. Pancreas: Unremarkable. Spleen: Unremarkable. Adrenal Glands: Unremarkable. Kidneys and Ureters: Unremarkable. Stomach and Bowel: Stomach, small bowel loops, and colon are unremarkable. Peritoneum: No abnormal intraperitoneal fluid. No free air. Ventral Wall: No hernia. Abdominal Nodes: No retroperitoneal or mesenteric adenopathy by size criteria. Vessels: Aorta and inferior vena cava are normal in size. PELVIS: Pelvic Organs: Unremarkable. Bladder: Unremarkable. Pelvic Nodes: No enlarged lymph nodes. Miscellaneous: No inguinal hernias are seen. Diverticulosis is noted, mild in severity, involving the sigmoid colon. No acute diverticulitis is found. A small cyst is again noted at the left ovary measuring only approximately 2 cm. Bones: Unremarkable. IMPRESSION: No acute cholecystitis is found, mild diverticulosis is incidentally noted. There is a large gallstone that has grown in size within the gallbladder lumen, measuring up to 3.9 x 4.3 cm. Adjacent cholecystitis or biliary obstruction is not associated. Dictated by: Rupert Driscoll M.D. on 04/07/2021 at 14:51 Approved by: Rupert Driscoll M.D. on 04/07/2021 at 14:53
== END ==
PROVIDERS: PCP Internal Medicine; Referring Provider Internal Medicine; Visit Provider Internal Medicine
DX: K57.92 Diverticulitis of intestine, part unspecified, without perforation or abscess without bleeding (principal); K80.20 Calculus of gallbladder without cholecystitis without obstruction; N83.202 Unspecified ovarian cyst, left side
CPT/HCPCS: 74177

== ENCOUNTER → 2021-05-08 12:28 | Outpatient (CLI) | payer OTHER, SELFPAY ==
[2018-05-22 10:07] VITALS: BMI 32.5
[2021-05-08 15:16] LABS: COVID19 -Nasal RAPID Negative (Negative)
== END ==
PROVIDERS: PCP Internal Medicine; Visit Provider Surgery
DX: Z20.822 Contact with and (suspected) exposure to COVID-19 (principal)
CPT/HCPCS: 87635; C9803

== ENCOUNTER 2021-05-09 12:34 | Day surgery (SDC) | payer OTHER, SELFPAY ==
[2018-05-22 10:07] VITALS: BMI 32.5
[2021-05-05 13:36] VITALS: BMI 40.3
[2021-05-09] VITALS (11 sets, daily range): BP systolic 122–158; BP diastolic 52–91; PULSE 56–98; RESP 12–19; TEMP 36–37; O2SAT 91–98; BMI 40.3
--- NOTE | 2021-05-09 | PATH_ITS ---
[facility] Accession Number: [id number] . 01 Material submitted: . gallbladder - GALLBLADDER . 01 Diagnosis: Gallbladder, Cholecystectomy: Chronic cholecystitis with mucosal necrosis. Cholelithiasis. Negative for dysplasia, neoplasia, and malignancy. . [facility] 05/12/2021 1547 Local . 01 Electronically signed: . Merlyn Velasco MD, Pathologist NPI- [id number] . 01 Gross description: . The specimen is received in formalin, labeled gallbladder and consists of a 9.5 x 4.0 x 3.2 cm previously disrupted gallbladder with a 0.2 cm in diameter cystic duct. The serosa is neri-pink and wrinkled with fibrinous adhesions. Opening reveals minimal green viscous bile and a 1.5 x 1.2 x 0.8 cm green cholelith. The mucosa is green and ragged, and the wall thickness measures 0.5 cm. [employer] sections are submitted, to include the en face cystic duct margin (blue), in cassette A1. ([id number]) /MRV 05/10/2021 1005 Local . 01 Pathologist provided ICD-10: K81.1, K80.50 . 01 CPT . 603401 Performed at: 01 [facility] [address] [place] [address] [address], [place], [place] [id number] MD Kobe Bates MD Phone: [phone]
[2021-05-09] MEDS: GABAPENTIN 300 MG CAPSULE PO (13:14)
[2021-05-09] MEDS: ACETAMINOPHEN 325 MG TABLET 975 MG PO (13:14)
[2021-05-09] MEDS: SCOPOLAMINE 1 PATCH TOP (13:14)
[2021-05-09] MEDS: LACTATED RINGERS 1,000 ML 100 ML IV ×2 (13:15→16:24)
--- NOTE | 2021-05-09 14:44 | PM.PREOP ---
Pre-operative Note Interval Note History & Physical reviewed/Exam performed by Physician: Yes Changes to H&P: No
[2021-05-09] MEDS: CEFAZOLIN 1 GM VIAL 2 GM IV (15:28)
--- NOTE | 2021-05-09 15:39 | SUR.OPER ---
Supine on padded OR bed, head on gel donut and wedge support, safety belt at thigh, left arm padded and tucked at side. Right arm secured on padded arm board <90 degrees abduction. Legs uncrossed. Padded footboard in place, gel pad under bilateral heels. Tape over blanket to secure lower legs.
[2021-05-09] MEDS: BUPIVACAINE 0.25% (PF) VIAL 30 ML INJ (15:43)
[2021-05-09] MEDS: fentaNYL 100 MCG/2 ML INJ IV ×4 (16:53→17:09)
[2021-05-09] MEDS: OXYCODONE IR 5 MG TABLET PO ×2 (17:01→18:11)
--- NOTE | 2021-05-11 10:22 | PM.CALLCOV.1 ---
Call Coverage Note Note Date of Patient Contact: 05/11/21 Time of Patient Contact: 10:22 Narrative of Care Provided: Recieved message from patient that she had nausea and emesis POD 1 sp lap cholecystectomy. Called spoke with patient and . Has had previous issues tolerating general anesthesia with nausea emesis. Tolerable incisional abdominal pain no fever or wound drainage. Discussed that will order labs CBC and CMP for today. Will send rx for Zofran to pharmacy. May need imaging if labs are abnormal.
--- NOTE | 2021-05-11 13:07 | P.OP_ITS ---
Operative Date/Time/Diagnoses Date of procedure: 05/09/21 Pre-op diagnosis: biliary colic Post-op diagnosis: same Procedure & Clinicians Procedure: laparoscopic cholecystectomy Same procedure as scheduled: Yes Indications: biliary colic Surgeon: Shane Florez Click Yes if Unassisted: Yes Anesthesia Type: General Operative Notes Findings: chronic cholecystitis Specimen(s): other (gallbladder) Estimated Blood Loss (mL): 20 Procedure in detail: The patient was placed supine on the table and bilateral lower extremity compression devices were applied. Anesthesia was induced they were intubated with an endotracheal tube and received 2g of Ancef. A time-out was performed. They were prepped and draped in sterile fashion. An infraumbilical incision was made, the umbilical stalk was elevated and the fascia was sharply incised entering the abdomen atraumatically. A blunt tip 12mm balloon trocar was then inserted, pneumoperitoneum was established and inspection of the abdomen demonstrated no evidence of injury. They were placed head up and right side up and then a 11 mm port was placed high in the epigastrium and two 5mm in the right upper quadrant. There were adhesions between consistent a history of cholecystitis were carefully taken down. Gallbladder was grasped by the fundus and retracted over the liver and retracted laterally by the infundibulum. Using electrocautery the lateral plane between the gallbladder and the liver was opened towards the fundus. The gallbladder was then retracted laterally and the medial plane was developed in the same manner. With the gallbladder mobilized the bottom of the cystic plate was visualized. The hepatocystic triangle was meticulosly skeletonized using hook electrocautery of all fat and fibrous tissue from both the front and the back. Only two structures were then clearly seen entering the gallbladder the cystic duct and the cystic artery. With the critical view of safety fully established the cystic duct was clipped twice proximally and once distally using the 10 mm Weck hemo clip applied under direct visualization and then sharply divided. The cyst ic artery was divided in the same fashion. The gallbladder was removed from the liver bed using electro cautery. The liver bed was then inspected for hemostasis and this was achieved. The abdomen was irrigated with sterile saline and inspection was made that showed the clips in good position. The specimen was removed using Endo-Catch. The abdomen was desufflated. The umbilical fascia was closed with 0 Vicryl in a [id number] fashion under direct visualization. Skin incisions were irrigated and closed with 4-0 Monocryl. 30 ml of 0.25% bupivacaine was infiltrated into the subcutaneous tissue of the incisions. The wounds were sealed with Dermabond. Patient emerged from anesthesia was extubated and transferred to recovery in stable condition. The sponge and instrument count at the end of the operation was correct. Complications: none Post-operative Condition: stable Disposition: same day surgery
== END 2021-05-09 18:28 | disposition home or self-care (01) ==
PROVIDERS: PCP Internal Medicine; Referring Provider Surgery; Visit Provider Surgery
PROC: 0FT44ZZ Resection of Gallbladder, Percutaneous Endoscopic Approach (ICD-10-PCS; CPT 47562; principal; 2021-05-09 13:45)
DX: K80.50 Calculus of bile duct without cholangitis or cholecystitis without obstruction (principal); J45.909 Unspecified asthma, uncomplicated; E66.01 Morbid (severe) obesity due to excess calories; Z68.41 Body mass index [BMI] 40.0-44.9, adult; K80.10 Calculus of gallbladder with chronic cholecystitis without obstruction
CPT/HCPCS: 47562; 82962; J0330; J0690; J1100; J1885; J2250; J2405; J2704; J3010

== ENCOUNTER → 2021-05-11 11:27 | Outpatient (CLI) | payer OTHER, SELFPAY ==
[2018-05-22 10:07] VITALS: BMI 32.5
[2021-05-11 12:14] LABS: Add Manual Diff / Slide Review NO; Basophils Absolute Auto 100 /uL (0-100); Basophils Percent Auto 0.7 % (0-2); Eosinophils Absolute Auto 100 /uL (0-450); Eosinophils Percent Auto 0.6 % (2-4); Hematocrit 29.4 % (36-46); Hemoglobin 9.6 g/dL (12.0-16.0); Lymphocytes Absolute Auto 1600 /uL (1100-4500); Mean Corpuscular HGB Conc 32.7 % (30-36); Mean Corpuscular Volume 85.6 fL (80-100); Monocytes Absolute Auto 1000 /uL (0-900); Monocytes Percent Auto 8.3 % (3-14); Neutrophils Absolute Auto 9300 /uL (1500-7000); Neutrophils Percent Auto 77.4 % (50-75); Platelet Count 258 X10^3/uL (150-400); Red Blood Cell Count 3.43 X10^6/uL (4.0-5.2); Red Cell Distribution Width 14.4 % (11.6-14.8)
[2021-05-11 12:48] LABS: Alanine Aminotransferase 27 IU/L (<35); Albumin 4.3 g/dL (3.5-5.0); Albumin Globulin Ratio 1.9 (1.0-2.8); Alkaline Phosphatase 68 U/L (38-126); Aspartate Aminotransferase 25 IU/L (14-36); BUN Creatinine Ratio 34.8 (6-22); Bilirubin Total 0.6 mg/dL (0.2-1.3); Blood Urea Nitrogen 16 mg/dL (7-17); Calcium 9.1 mg/dL (8.4-10.2); Carbon Dioxide 28 mmol/L (22-32); Chloride 100 mmol/L (98-107); Estimated Glomerular Filt Rate > 60.0 mL/min (>60); Globulin 2.3 g/dL (1.7-4.1); Glucose 119 mg/dL (80-110); HEMOLYSIS < 15 (0-50); Potassium 4.4 mmol/L (3.4-5.1); Sodium 136 mmol/L (137-145); Total Protein 6.6 g/dL (6.3-8.2)
--- NOTE | 2021-05-11 12:57 | PM.CALLCOV.1 ---
Call Coverage Note Note Date of Patient Contact: 05/11/21 Time of Patient Contact: 12:57 Narrative of Care Provided: Called patient no answer left message. Informed her that her laboratory studies CBC and complete metabolic panel were essentially normal with the exception of white blood cell count 12. Liver function and total bilirubin are normal. I instructed her that if her nausea is not improving if she is getting worse or developing fever then she needs to be evaluated in the emergency room.
--- NOTE | 2021-05-11 13:07 | P.OP_ITS ---
Operative Date/Time/Diagnoses Date of procedure: 05/09/21 Pre-op diagnosis: biliary colic Post-op diagnosis: same Procedure & Clinicians Procedure: laparoscopic cholecystectomy Same procedure as scheduled: Yes Indications: biliary colic Surgeon: Shane Florez Click Yes if Unassisted: Yes Anesthesia Type: General Operative Notes Findings: chronic cholecystitis Specimen(s): other (gallbladder) Estimated Blood Loss (mL): 20 Procedure in detail: The patient was placed supine on the table and bilateral lower extremity compression devices were applied. Anesthesia was induced they were intubated with an endotracheal tube and received 2g of Ancef. A time-out was performed. They were prepped and draped in sterile fashion. An infraumbilical incision was made, the umbilical stalk was elevated and the fascia was sharply incised entering the abdomen atraumatically. A blunt tip 12mm balloon trocar was then inserted, pneumoperitoneum was established and inspection of the abdomen demonstrated no evidence of injury. They were placed head up and right side up and then a 11 mm port was placed high in the epigastrium and two 5mm in the right upper quadrant. There were adhesions between consistent a history of cholecystitis were carefully taken down. Gallbladder was grasped by the fundus and retracted over the liver and retracted laterally by the infundibulum. Using electrocautery the lateral plane between the gallbladder and the liver was opened towards the fundus. The gallbladder was then retracted laterally and the medial plane was developed in the same manner. With the gallbladder mobilized the bottom of the cystic plate was visualized. The hepatocystic triangle was meticulosly skeletonized using hook electrocautery of all fat and fibrous tissue from both the front and the back. Only two structures were then clearly seen entering the gallbladder the cystic duct and the cystic artery. With the critical view of safety fully established the cystic duct was clipped twice proximally and once distally using the 10 mm Weck hemo clip applied under direct visualization and then sharply divided. The cyst ic artery was divided in the same fashion. The gallbladder was removed from the liver bed using electro cautery. The liver bed was then inspected for hemostasis and this was achieved. The abdomen was irrigated with sterile saline and inspection was made that showed the clips in good position. The specimen was removed using Endo-Catch. The abdomen was desufflated. The umbilical fascia was closed with 0 Vicryl in a [id number] fashion under direct visualization. Skin incisions were irrigated and closed with 4-0 Monocryl. 30 ml of 0.25% bupivacaine was infiltrated into the subcutaneous tissue of the incisions. The wounds were sealed with Dermabond. Patient emerged from anesthesia was extubated and transferred to recovery in stable condition. The sponge and instrument count at the end of the operation was correct. Complications: none Post-operative Condition: stable Disposition: same day surgery
== END ==
PROVIDERS: PCP Internal Medicine; Referring Provider Surgery; Visit Provider Surgery
DX: R10.9 Unspecified abdominal pain (principal)
CPT/HCPCS: 36415; 80053; 85025

== ENCOUNTER 2021-06-06 15:57 | Emergency (ER) | payer OTHER, SELFPAY ==
[2018-05-22 10:07] VITALS: BMI 32.5
[2021-06-06] VITALS (7 sets, daily range): BP systolic 135–161; BP diastolic 63–76; PULSE 95–105; RESP 15–29; TEMP 36.9; O2SAT 92–96; BMI 37.8
[2021-06-06] MEDS: ONDANSETRON 4 MG/2 ML INJ IV (16:38)
[2021-06-06 16:45] LABS: Add Manual Diff / Slide Review NO; Basophils Absolute Auto 100 /uL (0-100); Basophils Percent Auto 1.1 % (0-2); Eosinophils Absolute Auto 200 /uL (0-450); Eosinophils Percent Auto 1.6 % (2-4); Hemoglobin 12.7 g/dL (12.0-16.0); Lymphocytes Absolute Auto 900 /uL (1100-4500); Lymphocytes Percent Auto 9.1 % (25-40); Mean Corpuscular HGB Conc 32.5 % (30-36); Mean Corpuscular Hemoglobin 27.3 PG (26-34); Mean Corpuscular Volume 84.1 fL (80-100); Monocytes Absolute Auto 800 /uL (0-900); Monocytes Percent Auto 8.3 % (3-14); Neutrophils Absolute Auto 8000 /uL (1500-7000); Neutrophils Percent Auto 79.9 % (50-75); Platelet Count 291 X10^3/uL (150-400); Red Blood Cell Count 4.63 X10^6/uL (4.0-5.2); Red Cell Distribution Width 15.6 % (11.6-14.8)
--- NOTE | 2021-06-06 16:46 | ED.GENADULT ---
HPI - General Adult General Chief complaint: Abdominal Pain Stated complaint: Needs Stat CT done, abd abcess Time Seen by Provider: 06/06/21 16:39 Source: patient Mode of arrival: Wheelchair Limitations: no limitations History of Present Illness HPI narrative: 61-year-old female who was sent to the emergency department for a CT scan of her abdomen. One month ago patient had a laparoscopic cholecystectomy. She states that she recovered from the surgery. Several days ago she started to have pain in her lower abdomen. She has a history of diverticulitis. Has also had a history of abscesses related to this. She states that the discomfort that she is having as consistent with her diverticulitis and she is worried about another abscess. No fevers. A CT scan was ordered by her primary doctor however secondary to insurance reasons take could not get approved so she was sent to the emergency department have this performed. Some nausea. No vomiting. No urinary symptoms. Related Data Home Medications Medication Instructions Recorded Confirmed anastrozole 1 mg tablet 1 mg DAILY 05/09/21 05/23/21 Previous Rx's Medication Instructions Recorded acetaminophen 325 mg capsule 650 mg PO QID PRN #60 cap 05/09/21 (Tylenol) docusate sodium 100 mg capsule 100 mg PO BID #30 cap 05/09/21 (Colace) ondansetron HCl 4 mg tablet 4 mg PO Q8H #20 tab 05/11/21 (Zofran) amoxicillin 875 mg-potassium 1 tab PO Q12H 10 Days #20 tab 06/06/21 clavulanate 125 mg tablet (Augmentin) hydrocodone 5 mg-acetaminophen 325 1 tab PO Q8H PRN #6 tab 06/06/21 mg tablet ondansetron 4 mg disintegrating 4 mg PO Q6H PRN #10 tab 06/06/21 tablet Allergies Allergy/AdvReac Type Severity Reaction Status Date / Time No Known Drug Allergies Allergy Verified 06/06/21 16:52 Review of Systems Constitutional Constitutional: Denies fever(s) Cardiovascular Cardiovascular: Denies chest pain and Denies dyspnea Respiratory Respiratory: Denies dyspnea Gastrointestinal Gastrointestinal: Reports as per HPI Genitourinary Genitourinary: Reports as per HPI Musculoskeletal Musculoskeletal: Reports system reviewed and no additional complaints, except as documented Integumentary/Breasts Skin/Breast: Reports system reviewed and no additional complaints, except as documented Hematologic/Lymphatic On Anticoagulants: No Patient History Medical History Allergic rhinitis (1977) Anemia (2011) Anxiety (1999) Asthma (1999) Cholelithiasis 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 Colon polyps (03/14/16) Depression (1999) Diverticular disease (2015) Essential hypertension Hearing loss (2014) History of blood transfusion (2014) Hyperglycemia Hyperglycemia Kidney stones (1984) Personal history of breast cancer Shoulder problem (Unknown) Tinnitus Surgical History H/O colonoscopy with polypectomy (03/14/16) History of tonsillectomy S/P left mastectomy (~08/2019) Family History Mother Heart disease Stroke Cancer Alzheimer's disease Leukemia Father Alzheimer's disease Brother Cancer Brother Crohns disease Grandfather Heart disease Alzheimer's disease Grandmother No problems noted. Grandfather Cancer Leukemia Grandmother Cancer Liver cancer Sister No problems noted. Sister No problems noted. Social History household members: spouse Smoking Status: Never smoker second hand exposure: No alcohol intake: current substance use type: does not use Smoking Status: Never smoker alcohol intake frequency: a few times a month Substance Use Type: marijuana Exam Initial Vital Signs Initial Vital Signs: Vital Signs Temperature 98.5 F 06/06/21 16:07 Pulse Rate 105 H 06/06/21 16:07 Respiratory Rate 18 06/06/21 16:07 Blood Pressure 135/63 06/06/21 16:07 Pulse Oximetry 96 06/06/21 16:07 Const General: cooperative and healthy appearing [facility] Head: normal to inspection and normocephalic Resp Effort & Inspection: normal respiratory effort Auscultation: clear to auscultation bilaterally Cardio Rate: regular rate Rhythm: regular rhythm GI Inspection: normal to inspection and non-distended Palpation: soft and tender (Left lower quadrant, no tenderness right upper quadrant) General: bimanual renal exam normal bilaterally Back/Spine/Pelvis Back: normal to inspection Skin Lesions: no lesions Rashes: no rashes Neuro General: patient alert, patient awake and patient oriented x3 Extrem General: normal to inspection and capillary refill normal Psych Appearance: grossly normal and well kempt Course Orders Ordered: ED Orders 06/06/21 16:13 EKG-12 Lead Stat 06/06/21 16:31 Complete Blood Count AUTO DIFF Stat Comprehensive Metabolic Panel Stat Lipase Stat 06/06/21 16:48 CT abdomen pelvis w con Stat Sodium Chloride (Normal Saline 0.9%) 1,000 mls @ 500 mls/hr IV BOLUS ONE Stop: 06/06/21 18:46 Last Admin: 06/06/21 16:56 Dose: 500 mls/hr Documented by: NICOLASA Discontinued Medications Morphine Sulfate (Morphine 4 Mg/Ml Inj) 4 mg IV NOW ONE Stop: 06/06/21 16:48 Last Admin: 06/06/21 16:56 Dose: 4 mg Documented by: NICOLASA Morphine Sulfate (Morphine 4 Mg/Ml Inj) 4 mg IV NOW ONE Stop: 06/06/21 18:13 Last Admin: 06/06/21 18:16 Dose: 4 mg Documented by: NICOLASA Ondansetron HCl (Ondansetron 4 Mg/2 Ml Inj) 4 mg IV NOW ONE Stop: 06/06/21 16:14 Last Admin: 06/06/21 16:38 Dose: 4 mg Documented by: NICOLASA Vital Signs Vital signs: Vital Signs - 8 hr 06/06/21 16:07 Temperature 98.5 F Pulse Rate 105 H Respiratory Rate 18 Blood Pressure 135/63 Pulse Oximetry 96 Medical Decision Making Lab Data Lab results reviewed: Yes I reviewed the patient's lab results. Result diagrams: 06/06/21 16:31 06/06/21 16:31 Labs: Lab Results 06/06/21 06/06/21 Range/Units 16:31 16:31 WBC 10.0 (4.5-11.0) X10^3/uL RBC 4.63 (4.0-5.2) X10^6/uL Hgb 12.7 (12.0-16.0) g/dL Hct 39.0 (36-46) % MCV 84.1 (80-100) fL MCH 27.3 (26-34) PG MCHC 32.5 (30-36) % RDW 15.6 H (11.6-14.8) % Plt Count 291 (150-400) X10^3/uL Neut % (Auto) 79.9 H (50-75) % Lymph % (Auto) 9.1 L (25-40) % [place] % (Auto) 8.3 (3-14) % Eos % (Auto) 1.6 L (2-4) % Baso % (Auto) 1.1 (0-2) % Neut # (Auto) 8000 H (1894-7072) /uL Lymph # (Auto) 900 L (8286-8313) /uL [place] # (Auto) 800 (0-900) /uL Eos # (Auto) 200 (0-450) /uL Baso # (Auto) 100 (0-100) /uL Sodium 138 (137-145) mmol/L Potassium 4.2 (3.4-5.1) mmol/L Chloride 102 (98-107) mmol/L Carbon Dioxide 25 (22-32) mmol/L BUN 11 (7-17) mg/dL Creatinine 0.50 L (0.52-1.04) mg/dL Estimated GFR > 60.0 (>60) mL/min BUN/Creatinine Ratio 22.0 (6-22) Glucose 128 H (80-110) mg/dL Calcium 9.5 (8.4-10.2) mg/dL Total Bilirubin 0.6 (0.2-1.3) mg/dL AST 18 (14-36) IU/L ALT 17 (<35) IU/L Alkaline Phosphatase 91 (38-126) U/L Total Protein 8.0 (6.3-8.2) g/dL Albumin 4.8 (3.5-5.0) g/dL Globulin 3.2 (1.7-4.1) g/dL Albumin/Globulin Ratio 1.5 (1.0-2.8) Lipase 38 (23-300) U/L Imaging Data CT scan - abdomen/pelvis: Radiologist's Impression: [address] [address] [address] Scan Report Signed Patient: Traci Mireles MR#: [id number] : 1960 Acct:[id number] Age/Sex: 61 / F Date of Service: 06/06/21 Loc: ED Accession Number: [id number] ?? Procedure: CT abdomen pelvis w con Ordering Provider: Cezar Connelly D.O. PROCEDURE:? CT ABDOMEN PELVIS W CON ? INDICATIONS:? Left-sided abdominal pain, cholecystectomy x4 weeks ? TECHNIQUE:? After the administration of intravenous contrast, axial sections acquired from the lung bases to the pubic symphysis.? Coronal and sagittal reformats were performed.? For radiation dose reduction, the following was used:? automated exposure control, adjustment of mA and/or kV according to patient size.? ? COMPARISON:? [facility], CT, CT ABDOMEN PELVIS W CON, 04/07/2021, 13:01. ? FINDINGS:? Image quality:? Excellent.? ? Lung bases:? Unremarkable. Heart:? No significant findings. ? ABDOMEN: Liver:? Unremarkable.? ? As below Gallbladder:? Cholecystectomy? ? Biliary ducts:? Unremarkable.? ? Pancreas:? Unremarkable.? ? Spleen:? Unremarkable.? ? Adrenal Glands:? Unremarkable.? ? Kidneys and Ureters:? Unremarkable noted in several simple cortical cysts, largest on the left measuring 2.5 cm. .? ? ? Stomach and Bowel:? Sigmoid wall thickening, multiple diverticula and pericolonic inflammatory change consistent with acute diverticulitis.? Minimal adjacent free fluid without evidence of mature abscess or obstruction.? Remainder of the bowel loops unremarkable. ? Peritoneum:? There is oblong encapsulated fluid along the free edge of the liver measuring 1.2 x 7.2 cm.? Second hyperdense cystic fluid collection present in the gallbladder fossa measures 3.8 x 4.5 cm, and a 3rd large hyperdense encapsulated fluid collection adjacent and inferior to the gallbladder fossa measures 10.6 x 6.0 cm with surrounding inflammatory changes, consistent with multiple bilomas, possibly infected.? ? Ventral Wall: ? No hernias.? Abdominal Nodes:? No retroperitoneal or mesenteric adenopathy by size criteria.? Vessels:? Aorta and inferior vena cava are normal in size.? ? PELVIS: Pelvic Organs:? 3 cm left ovarian cyst noted. Bladder:? Unremarkable.? ? Pelvic Nodes: No enlarged lymph nodes.? Miscellaneous: No hernias are seen. ? ? Small amount of free fluid present dependently within the pelvis. ? Bones:? Multilevel degenerative disc disease and arthropathy present in the lower lumbar spine. ? ? IMPRESSION:? ? 1. Acute diverticulitis and without evidence of abscess or free air ? 2. Multiple hyperdense fluid collections associated with the gallbladder fossa measure up to 10.6 cm.? Given recent cholecystectomy, differential would include biloma and loculated seroma.? Mild adjacent inflammatory change raises the possibility of superimposed infection. ? ? ? Approved by: Dorian Louis M.D. on 06/06/2021 at 16:57? ECG Data Attestation: I personally reviewed and interpreted this ECG as follows: Prior ECG tracings: not available for review Interpretation: Sinus rhythm Ventricular rate 95 Normal axis Normal QRS Normal QTC No ST T wave changes MDM Narrative Medical decision making narrative: Afebrile, no leukocytosis, normal bilirubin, normal LFTs. CT scan shows diverticulitis without signs of abscess. Will treat with antibiotics. Patient also has a very large fluid collection in her gallbladder fossa. Discussed the case with Dr. Mcfadden with General surgery who stated given her normal bilirubin and normal LFTs this would most likely be a seroma. Less likely abscess. Less likely related to the diverticulitis. I did discuss this with the patient. Informed her that she needs to contact her operative surgeon for a follow-up with regard to this. Will sent home with antibiotics for her diverticulitis. She was given return precautions. She expressed understanding agreement. Discharge Plan Departure Patient Disposition: Home Clinical Impression: Diverticulitis Instructions: DI for Diverticulitis Activity Restrictions/Additional Instructions: The CT scan today did show diverticulitis without any signs of abscess. We will place you on an antibiotic for this. This was electronically transmitted to the pharmacy of your choice. There was also an incidental finding of a large fluid collection up where your gallbladder was once located. This is most likely related to the gallbladder surgery. Is most likely what is called a seroma. Please contact the general surgeon who performed your surgery for a follow-up of this. Return to the emergency department for any new or worsening symptoms Prescriptions: New amoxicillin-pot clavulanate [Augmentin] 875-125 mg tablet 1 tab PO Q12H 10 Days Qty: 20 RF: 0 ondansetron 4 mg tablet,disintegrating 4 mg PO Q6H PRN (Reason: nausea and vomiting) Qty: 10 RF: 0 hydrocodone-acetaminophen 5-325 mg tablet 1 tab PO Q8H PRN (Reason: pain) Qty: 6 RF: 0 No Action ondansetron HCl [Zofran] 4 mg tablet 4 mg PO Q8H Qty: 20 RF: 0 anastrozole 1 mg tablet 1 mg DAILY RF: 0 docusate sodium [Colace] 100 mg capsule 100 mg PO BID Qty: 30 RF: 0 acetaminophen [Tylenol] 325 mg capsule 650 mg PO QID PRN (Reason: pain) Qty: 60 RF: 0 Referrals: Sanjay Fernandes MD [Primary Care Provider] -
--- NOTE | 2021-06-06 16:48 | DI.CT.S_ITS ---
PROCEDURE: CT ABDOMEN PELVIS W CON INDICATIONS: Left-sided abdominal pain, cholecystectomy x4 weeks TECHNIQUE: After the administration of intravenous contrast, axial sections acquired from the lung bases to the pubic symphysis. Coronal and sagittal reformats were performed. For radiation dose reduction, the following was used: automated exposure control, adjustment of mA and/or kV according to patient size. COMPARISON: [facility], CT, CT ABDOMEN PELVIS W CON, 04/07/2021, 13:01. FINDINGS: Image quality: Excellent. Lung bases: Unremarkable. Heart: No significant findings. ABDOMEN: Liver: Unremarkable. As below Gallbladder: Cholecystectomy Biliary ducts: Unremarkable. Pancreas: Unremarkable. Spleen: Unremarkable. Adrenal Glands: Unremarkable. Kidneys and Ureters: Unremarkable noted in several simple cortical cysts, largest on the left measuring 2.5 cm. . Stomach and Bowel: Sigmoid wall thickening, multiple diverticula and pericolonic inflammatory change consistent with acute diverticulitis. Minimal adjacent free fluid without evidence of mature abscess or obstruction. Remainder of the bowel loops unremarkable. Peritoneum: There is oblong encapsulated fluid along the free edge of the liver measuring 1.2 x 7.2 cm. Second hyperdense cystic fluid collection present in the gallbladder fossa measures 3.8 x 4.5 cm, and a 3rd large hyperdense encapsulated fluid collection adjacent and inferior to the gallbladder fossa measures 10.6 x 6.0 cm with surrounding inflammatory changes, consistent with multiple bilomas, possibly infected. Ventral Wall: No hernias. Abdominal Nodes: No retroperitoneal or mesenteric adenopathy by size criteria. Vessels: Aorta and inferior vena cava are normal in size. PELVIS: Pelvic Organs: 3 cm left ovarian cyst noted. Bladder: Unremarkable. Pelvic Nodes: No enlarged lymph nodes. Miscellaneous: No hernias are seen. Small amount of free fluid present dependently within the pelvis. Bones: Multilevel degenerative disc disease and arthropathy present in the lower lumbar spine. IMPRESSION: 1. Acute diverticulitis and without evidence of abscess or free air 2. Multiple hyperdense fluid collections associated with the gallbladder fossa measure up to 10.6 cm. Given recent cholecystectomy, differential would include biloma and loculated seroma. Mild adjacent inflammatory change raises the possibility of superimposed infection. Approved by: Dorian Louis M.D. on 06/06/2021 at 16:57
[2021-06-06 16:55] LABS: Alanine Aminotransferase 17 IU/L (<35); Albumin 4.8 g/dL (3.5-5.0); Albumin Globulin Ratio 1.5 (1.0-2.8); Alkaline Phosphatase 91 U/L (38-126); Aspartate Aminotransferase 18 IU/L (14-36); Bilirubin Total 0.6 mg/dL (0.2-1.3); Blood Urea Nitrogen 11 mg/dL (7-17); Calcium 9.5 mg/dL (8.4-10.2); Carbon Dioxide 25 mmol/L (22-32); Chloride 102 mmol/L (98-107); Estimated Glomerular Filt Rate > 60.0 mL/min (>60); Globulin 3.2 g/dL (1.7-4.1); Glucose 128 mg/dL (80-110); HEMOLYSIS < 15 (0-50); Lipase 38 U/L (23-300); Potassium 4.2 mmol/L (3.4-5.1); Sodium 138 mmol/L (137-145)
[2021-06-06] MEDS: MORPHINE 4 MG/ML INJ IV ×2 (16:56→18:16)
[2021-06-06] MEDS: SODIUM CHLORIDE 0.9% 1,000 ML 500 ML IV (16:56)
== END 2021-06-06 18:52 | disposition home or self-care (01) ==
PROVIDERS: Emergency Provider Emergency Medicine; PCP Internal Medicine
DX: K57.32 Diverticulitis of large intestine without perforation or abscess without bleeding (principal); I10 Essential (primary) hypertension
CPT/HCPCS: 36415; 74177; 80053; 83690; 85025; 93005; 93010; 96361; 96374; 96375; 96376; 99284; J2270; J2405; Q9967

== ENCOUNTER 2021-06-29 11:55 | Emergency (ER) | payer OTHER, SELFPAY ==
[2018-05-22 10:07] VITALS: BMI 32.5
[2021-06-29 12:02] VITALS: BP 175/72; PULSE 88; RESP 18; TEMP 36.2; O2SAT 97
[2021-06-29 12:33] LABS: Add Manual Diff / Slide Review NO; Basophils Absolute Auto 100 /uL (0-100); Basophils Percent Auto 0.7 % (0-2); Eosinophils Absolute Auto 100 /uL (0-450); Hematocrit 41.6 % (36-46); Hemoglobin 13.3 g/dL (12.0-16.0); Lymphocytes Absolute Auto 1100 /uL (1100-4500); Mean Corpuscular HGB Conc 31.9 % (30-36); Mean Corpuscular Hemoglobin 26.5 PG (26-34); Monocytes Absolute Auto 1100 /uL (0-900); Neutrophils Absolute Auto 10100 /uL (1500-7000); Neutrophils Percent Auto 80.3 % (50-75); Platelet Count 287 X10^3/uL (150-400); Red Blood Cell Count 5.01 X10^6/uL (4.0-5.2); Red Cell Distribution Width 16.5 % (11.6-14.8); White Blood Cell Count 12.6 X10^3/uL (4.5-11.0)
--- NOTE | 2021-06-29 12:42 | ED.ABDPAIN ---
HPI - Abdominal Pain <Claudio Echeverria PA-C - Last Filed: 06/29/21 19:41> General Chief Complaint: Abdominal Pain Stated Complaint: Suspects Intestinal Blockage, HX Diverticulitis Time Seen by Provider: 06/29/21 12:23 Source: patient Mode of arrival: Ambulatory Limitations: no limitations History of Present Illness HPI narrative: Patient is a 61-year-old female presented to the emergency department today for evaluation abdominal pain constipation. Patient states that she has been diagnosed with diverticulitis and has been taking antibiotics since Saturday06/26/2021. She explains that she began to experience ?sharp? intermittent abdominal pain yesterday or and she noted that her bowel movements have consisted of small volumes of ?clear mucus with flecks of fecal matter?. She notes that her pain worsened yesterday, and she states that application of heat to the abdomen has improved her symptoms. Patient experienced 1 episode of nonbloody nonbilious vomiting yesterday. Of note, patient he presents to the emergency room concerned for a potential abdominal blockage and she reports a laparoscopic cholecystectomy on 05/23/[address] Florez. Patient denies fever, chills, cough, shortness of breath, chest pain, nausea, diarrhea, dysuria, hematochezia. No other concerns voiced at this time. Related Data Home Medications Medication Instructions Recorded Confirmed anastrozole 1 mg tablet 1 mg DAILY 05/09/21 06/07/21 Previous Rx's Medication Instructions Recorded acetaminophen 325 mg capsule 650 mg PO QID PRN #60 cap 05/09/21 (Tylenol) docusate sodium 100 mg capsule 100 mg PO BID #30 cap 05/09/21 (Colace) ondansetron HCl 4 mg tablet 4 mg PO Q8H #20 tab 05/11/21 (Zofran) hydrocodone 5 mg-acetaminophen 325 1 tab PO Q8H PRN #6 tab 06/06/21 mg tablet ondansetron 4 mg disintegrating 4 mg PO Q6H PRN #10 tab 06/06/21 tablet Allergies Allergy/AdvReac Type Severity Reaction Status Date / Time No Known Drug Allergies Allergy Verified 06/07/21 14:38 Review of Systems <Claudio Echeverria PA-C - Last Filed: 06/29/21 19:41> Constitutional Constitutional: Denies chills, Denies fever(s), Denies frequent falls, Denies lethargy and Denies weakness ENT Ears, Nose, Mouth, and Throat: Denies dizziness Cardiovascular Cardiovascular: Denies chest pain, Denies irregular heart rhythm, Denies lightheadedness, Denies palpitations, Denies dyspnea, Denies dyspnea on exertion and Denies orthopnea Respiratory Respiratory: Denies cough, Denies dyspnea, Denies dyspnea on exertion and Denies wheezing Gastrointestinal Gastrointestinal: Reports abdominal pain, Denies melena, Denies hematochezia, Reports change in bowel habits, Denies diarrhea, Denies nausea and Reports vomiting Musculoskeletal Musculoskeletal: Denies numbness Neurologic Neurologic: Denies behavioral changes, Denies confusion, Denies dizziness, Denies frequent falls, Denies numbness and Denies weakness Psychiatric Psychiatric: Denies behavioral changes and Denies confusion Endocrine Endocrine: Denies palpitations Allergic/Immunologic Allergic/Immunologic: Denies wheezing Patient History <Claudio Echeverria PA-C - Last Filed: 06/29/21 19:41> Medical History Allergic rhinitis (1977) Anemia (2011) Anxiety (1999) Asthma (1999) Cholelithiasis 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 Colon polyps (03/14/16) Depression (1999) Diverticular disease (2015) Essential hypertension Hearing loss (2013) History of blood transfusion (2014) Hyperglycemia Hyperglycemia Kidney stones (1984) Personal history of breast cancer Shoulder problem (Unknown) Tinnitus Surgical History H/O colonoscopy with polypectomy (03/14/16) History of tonsillectomy S/P left mastectomy (~08/2019) Family History Mother Heart disease Stroke Cancer Alzheimer's disease Leukemia Father Alzheimer's disease Brother Cancer Brother Crohns disease Grandfather Heart disease Alzheimer's disease Grandmother No problems noted. Grandfather Cancer Leukemia Grandmother Cancer Liver cancer Sister No problems noted. Sister No problems noted. Social History household members: spouse Smoking Status: Never smoker second hand exposure: No alcohol intake: current substance use type: does not use Smoking Status: Never smoker alcohol intake frequency: a few times a month Substance Use Type: marijuana Exam <Claudio Echeverria PA-C - Last Filed: 06/29/21 19:41> Narrative Exam Narrative: GENERAL: 61 year old patient appears stated age. Well-developed patient, in no acute distress. HEAD: Atraumatic. Normocephalic. EYES: Pupils equal round and reactive. Extraocular motions intact. No scleral icterus. No injection or drainage. ENT: Nose without bleeding, purulent drainage. Throat without erythema, tonsillar hypertrophy or exudate. Airway patent. NECK: Trachea midline. Non tender CARDIOVASCULAR: Regular rate and rhythm without murmurs, gallops, or rubs. RESPIRATORY: Clear to auscultation. Breath sounds equal bilaterally. No wheezes, rales, or rhonchi. GASTROINTESTINAL: Abdomen soft, nondistended. Laparoscopic cholecystectomy surgical scars noted. Tenderness to palpation throughout the right lower quadrant and left lower quadrant. Bowel sounds appreciated on auscultation throughout all 4 quadrants of the abdomen. EXTREMITIES: No edema or joint tenderness. BACK: Nontender without deformity or crepitance. No flank tenderness. NEURO: AOx3. SKIN: No rash or erythema of visible areas Initial Vital Signs Initial Vital Signs: Vital Signs Temperature 97.2 F L 06/29/21 12:02 Pulse Rate 88 06/29/21 12:02 Respiratory Rate 18 06/29/21 12:02 Blood Pressure 175/72 H 06/29/21 12:02 Pulse Oximetry 97 06/29/21 12:02 <Aura Sue DO - Last Filed: 07/01/21 18:55> Initial Vital Signs Initial Vital Signs: Vital Signs Temperature 97.2 F L 06/29/21 12:02 Pulse Rate 88 06/29/21 12:02 Respiratory Rate 18 06/29/21 12:02 Blood Pressure 175/72 H 06/29/21 12:02 Pulse Oximetry 97 06/29/21 12:02 Course <GERMAIN Krishnamurthy Last Filed: 06/29/21 19:41> Course Course Narrative: Patient is a 61-year-old female presented to the emergency department today for evaluation abdominal pain constipation Orders Ordered: ED Orders 06/29/21 12:14 Complete Blood Count AUTO DIFF Stat Comprehensive Metabolic Panel Stat Lipase Stat 06/29/21 12:40 EKG-12 Lead Stat 06/29/21 12:49 CT abdomen pelvis w con Stat Vital Signs Vital signs: Vital Signs - 8 hr 06/29/21 12:02 06/29/21 14:28 Temperature 97.2 F L Pulse Rate 88 101 H Respiratory Rate 18 18 Blood Pressure 175/72 H 147/73 H Pulse Oximetry 97 97 <Aura Sue DO - Last Filed: 07/01/21 18:55> Orders Ordered: ED Orders 06/29/21 12:14 Complete Blood Count AUTO DIFF Stat Comprehensive Metabolic Panel Stat Lipase Stat 06/29/21 12:40 EKG-12 Lead Stat 06/29/21 12:49 CT abdomen pelvis w con Stat Vital Signs Vital signs: Vital Signs - 8 hr 06/29/21 12:02 06/29/21 14:28 Temperature 97.2 F L Pulse Rate 88 101 H Respiratory Rate 18 18 Blood Pressure 175/72 H 147/73 H Pulse Oximetry 97 97 MDM - Abdominal Pain <Claudio Echeverria PA-C - Last Filed: 06/29/21 19:41> Lab Data Lab results narrative: I have reviewed all labs prior to discharge. Result diagrams: 06/29/21 12:14 06/29/21 12:14 Labs: Lab Results 06/29/21 06/29/21 Range/Units 12:14 12:14 WBC 12.6 H (4.5-11.0) X10^3/uL RBC 5.01 (4.0-5.2) X10^6/uL Hgb 13.3 (12.0-16.0) g/dL Hct 41.6 (36-46) % MCV 83.0 (80-100) fL MCH 26.5 (26-34) PG MCHC 31.9 (30-36) % RDW 16.5 H (11.6-14.8) % Plt Count 287 (150-400) X10^3/uL Neut % (Auto) 80.3 H (50-75) % Lymph % (Auto) 9.0 L (25-40) % Ponce % (Auto) 9.0 (3-14) % Eos % (Auto) 1.0 L (2-4) % Baso % (Auto) 0.7 (0-2) % Neut # (Auto) 68014 H (2366-8256) /uL Lymph # (Auto) 1100 (0343-8353) /uL Ponce # (Auto) 1100 H (0-900) /uL Eos # (Auto) 100 (0-450) /uL Baso # (Auto) 100 (0-100) /uL Sodium 138 (137-145) mmol/L Potassium 3.8 (3.4-5.1) mmol/L Chloride 102 (98-107) mmol/L Carbon Dioxide 23 (22-32) mmol/L BUN 11 (7-17) mg/dL Creatinine 0.52 (0.52-1.04) mg/dL Estimated GFR > 60.0 (>60) mL/min BUN/Creatinine Ratio 21.2 (6-22) Glucose 114 H (80-110) mg/dL Calcium 9.7 (8.4-10.2) mg/dL Total Bilirubin 0.9 (0.2-1.3) mg/dL AST 17 (14-36) IU/L ALT 16 (<35) IU/L Alkaline Phosphatase 81 (38-126) U/L Total Protein 8.2 (6.3-8.2) g/dL Albumin 5.0 (3.5-5.0) g/dL Globulin 3.2 (1.7-4.1) g/dL Albumin/Globulin Ratio 1.6 (1.0-2.8) Lipase 71 (23-300) U/L Imaging Data CT scan - abdomen/pelvis: Radiologist's Impression: PROCEDURE:? CT ABDOMEN PELVIS W CON ? INDICATIONS:? Abdominal pain ? TECHNIQUE:? After the administration of intravenous contrast, axial sections acquired from the lung bases to the pubic symphysis.? Coronal and sagittal reformats were performed.? For radiation dose reduction, the following was used:? automated exposure control, adjustment of mA and/or kV according to patient size.? ? COMPARISON:? [facility], CT, CT ABDOMEN PELVIS W CON, 04/07/2021, 13:01.? [facility], CT, CT ABDOMEN PELVIS W CON, 06/06/2021, 17:21. ? FINDINGS: ABDOMEN:? Lung bases:? No acute findings. Heart:? No pericardial effusion. Normal in size.? ? Liver: Normal. Gallbladder:? Status post cholecystectomy, and redemonstrated 5.1 x 9.2 cm presumed inflammatory mass or hematoma (versus biloma) in the operative site which is decreased since the prior study (previously 10.6 x 6.0 cm ) Additional focus in the cholecystectomy bed is also decreased in size since the prior study. Bile ducts: Normal. Pancreas: Normal.? Spleen: Normal.? Adrenals: Normal. Kidneys and Ureters:? Bilateral simple appearing renal cysts. Stomach and duodenum: Normal. Bowel:? Numerous colonic diverticula are present.? There is long segment mural thickening involving the sigmoid colon, for example image 65/2, with adjacent inflammatory fat stranding.? This appears progressed since the prior study from 06/06/21.? No abscess is seen.? Appendix is not clearly identified however no suspicious pericecal inflammatory changes are seen. Other:? No free fluid or air.? Abdominal nodes:? Normal. Aorta and IVC: Normal in size.? ? Ventral wall: Normal. ? PELVIS:? ? Bladder and reproductive:? Bladder is decompressed.? Left-sided adnexal cystic lesion which is grossly unchanged measuring 2.9 cm.? This could be surveilled with pelvic ultrasound to exclude cystic neoplasm as clinically warranted. ? Inguinal region: No hernia.? Pelvic nodes: Normal.? ? Bones:? No suspicious bony lesions.? No vertebral body compression fractures.? Spondylosis and facet arthropathy. ? ? IMPRESSION: ? Interval progression of presumed acute sigmoid diverticulitis, with increasing long segment mural thickening since 06/06/21.? No abscess.? No evidence of perforation.? Recommend clinical follow-up to document resolution and exclude underlying colonic neoplasm. ? Status post cholecystectomy with decreasing soft tissue attenuation mass at the operative bed, probably complex hematoma/biloma or phlegmon with interval improvement since the prior study. ? Additional chronic and incidental findings as above.? ? ? Dictated by: Felton Briones M.D. on 06/29/2021 at 13:15 ? ? Approved by: Felton Briones M.D. on 06/29/2021 at 13:26 ? MDM Narrative Medical decision making narrative: Patient is a 61-year-old female presented to the emergency department today for evaluation abdominal pain constipation. CT scan of the abdomen and pelvis with IV contrast ordered and resulted interval progression of presumed acute sigmoid diverticulitis thing creasing long segment of mural thickening from previous CT on 06/06/2021. Patient states that she has been consistently taking her antibiotics and she has been instructed to continue her antibiotic regimen. She has an appointment scheduled with Dr. Florez on 07/03/2021. Discussed the findings with the patient at this time she feels comfortable being discharged home with strict return precautions being discussed prior to discharge. <Aura Sue, DO - Last Filed: 07/01/21 18:55> Lab Data Labs: Lab Results 06/29/21 06/29/21 Range/Units 12:14 12:14 WBC 12.6 H (4.5-11.0) X10^3/uL RBC 5.01 (4.0-5.2) X10^6/uL Hgb 13.3 (12.0-16.0) g/dL Hct 41.6 (36-46) % MCV 83.0 (80-100) fL MCH 26.5 (26-34) PG MCHC 31.9 (30-36) % RDW 16.5 H (11.6-14.8) % Plt Count 287 (150-400) X10^3/uL Neut % (Auto) 80.3 H (50-75) % Lymph % (Auto) 9.0 L (25-40) % Ponce % (Auto) 9.0 (3-14) % Eos % (Auto) 1.0 L (2-4) % Baso % (Auto) 0.7 (0-2) % Neut # (Auto) 32278 H (1386-3821) /uL Lymph # (Auto) 1100 (0406-1268) /uL Ponce # (Auto) 1100 H (0-900) /uL Eos # (Auto) 100 (0-450) /uL Baso # (Auto) 100 (0-100) /uL Sodium 138 (137-145) mmol/L Potassium 3.8 (3.4-5.1) mmol/L Chloride 102 (98-107) mmol/L Carbon Dioxide 23 (22-32) mmol/L BUN 11 (7-17) mg/dL Creatinine 0.52 (0.52-1.04) mg/dL Estimated GFR > 60.0 (>60) mL/min BUN/Creatinine Ratio 21.2 (6-22) Glucose 114 H (80-110) mg/dL Calcium 9.7 (8.4-10.2) mg/dL Total Bilirubin 0.9 (0.2-1.3) mg/dL AST 17 (14-36) IU/L ALT 16 (<35) IU/L Alkaline Phosphatase 81 (38-126) U/L Total Protein 8.2 (6.3-8.2) g/dL Albumin 5.0 (3.5-5.0) g/dL Globulin 3.2 (1.7-4.1) g/dL Albumin/Globulin Ratio 1.6 (1.0-2.8) Lipase 71 (23-300) U/L Discharge Plan Departure Patient Disposition: Home Clinical Impression: Diverticulitis Constipation Qualifiers: Constipation type: unspecified constipation type Qualified Code(s): K59.00 - Constipation, unspecified Instructions: DI for Diverticulitis Activity Restrictions/Additional Instructions: *You have been diagnosed with diverticulitis *What to do: *Please continue to take your regular medications as directed. [ ] New medication prescriptions sent to your pharmacy: [ ] [ ] New medication written as a paper prescription [X] No new medications given *Please follow up with your primary care provider in 2-3 days, call for an appointment. Let them know you were seen in the Emergency Department and that we ask that you be seen in follow up. We will electronically transmit a record of today's note if your PCP is in our system *If you do not have a primary care provider please contact the [facility] Resource line at [phone]. They will ask some questions about your medical history and help get you set up with a doctor in the community. *Return to Emergency Department if you should have any new, worsening or concerning symptoms, such as fever greater than 101 F, shaking chills, worsening abdominal pain, persistent vomiting, or other bothersome symptoms. Prescriptions: No Action ondansetron HCl [Zofran] 4 mg tablet 4 mg PO Q8H Qty: 20 RF: 0 anastrozole 1 mg tablet 1 mg DAILY RF: 0 docusate sodium [Colace] 100 mg capsule 100 mg PO BID Qty: 30 RF: 0 acetaminophen [Tylenol] 325 mg capsule 650 mg PO QID PRN (Reason: pain) Qty: 60 RF: 0 ondansetron 4 mg tablet,disintegrating 4 mg PO Q6H PRN (Reason: nausea and vomiting) Qty: 10 RF: 0 hydrocodone-acetaminophen 5-325 mg tablet 1 tab PO Q8H PRN (Reason: pain) Qty: 6 RF: 0 Referrals: Sanjay Fernandes MD [Primary Care Provider] - <Aura Sue DO - Last Filed: 07/01/21 18:55> Cosign ED Attending Costroyature Attestation: I was immediately available in the department for consultation. Documentation has been reviewed. I agree with assessment and plan.
[2021-06-29 12:44] LABS: Alanine Aminotransferase 16 IU/L (<35); Albumin Globulin Ratio 1.6 (1.0-2.8); Alkaline Phosphatase 81 U/L (38-126); Aspartate Aminotransferase 17 IU/L (14-36); BUN Creatinine Ratio 21.2 (6-22); Bilirubin Total 0.9 mg/dL (0.2-1.3); Blood Urea Nitrogen 11 mg/dL (7-17); Calcium 9.7 mg/dL (8.4-10.2); Carbon Dioxide 23 mmol/L (22-32); Chloride 102 mmol/L (98-107); Estimated Glomerular Filt Rate > 60.0 mL/min (>60); Globulin 3.2 g/dL (1.7-4.1); Glucose 114 mg/dL (80-110); HEMOLYSIS 18 (0-50); Lipase 71 U/L (23-300); Potassium 3.8 mmol/L (3.4-5.1); Sodium 138 mmol/L (137-145); Total Protein 8.2 g/dL (6.3-8.2)
--- NOTE | 2021-06-29 12:49 | DI.CT.S_ITS ---
PROCEDURE: CT ABDOMEN PELVIS W CON INDICATIONS: Abdominal pain TECHNIQUE: After the administration of intravenous contrast, axial sections acquired from the lung bases to the pubic symphysis. Coronal and sagittal reformats were performed. For radiation dose reduction, the following was used: automated exposure control, adjustment of mA and/or kV according to patient size. COMPARISON: [facility], CT, CT ABDOMEN PELVIS W CON, 04/07/2021, 13:01. [facility], CT, CT ABDOMEN PELVIS W CON, 06/06/2021, 17:21. FINDINGS: ABDOMEN: Lung bases: No acute findings. Heart: No pericardial effusion. Normal in size. Liver: Normal. Gallbladder: Status post cholecystectomy, and redemonstrated 5.1 x 9.2 cm presumed inflammatory mass or hematoma (versus biloma) in the operative site which is decreased since the prior study (previously 10.6 x 6.0 cm ) Additional focus in the cholecystectomy bed is also decreased in size since the prior study. Bile ducts: Normal. Pancreas: Normal. Spleen: Normal. Adrenals: Normal. Kidneys and Ureters: Bilateral simple appearing renal cysts. Stomach and duodenum: Normal. Bowel: Numerous colonic diverticula are present. There is long segment mural thickening involving the sigmoid colon, for example image 65/2, with adjacent inflammatory fat stranding. This appears progressed since the prior study from 06/06/21. No abscess is seen. Appendix is not clearly identified however no suspicious pericecal inflammatory changes are seen. Other: No free fluid or air. Abdominal nodes: Normal. Aorta and IVC: Normal in size. Ventral wall: Normal. PELVIS: Bladder and reproductive: Bladder is decompressed. Left-sided adnexal cystic lesion which is grossly unchanged measuring 2.9 cm. This could be surveilled with pelvic ultrasound to exclude cystic neoplasm as clinically warranted. Inguinal region: No hernia. Pelvic nodes: Normal. Bones: No suspicious bony lesions. No vertebral body compression fractures. Spondylosis and facet arthropathy. IMPRESSION: Interval progression of presumed acute sigmoid diverticulitis, with increasing long segment mural thickening since 06/06/21. No abscess. No evidence of perforation. Recommend clinical follow-up to document resolution and exclude underlying colonic neoplasm. Status post cholecystectomy with decreasing soft tissue attenuation mass at the operative bed, probably complex hematoma/biloma or phlegmon with interval improvement since the prior study. Additional chronic and incidental findings as above. Dictated by: Felton Briones M.D. on 06/29/2021 at 13:15 Approved by: Felton Briones M.D. on 06/29/2021 at 13:26
[2021-06-29 14:28] VITALS: BP 147/73; PULSE 101; RESP 18; O2SAT 97
== END 2021-06-29 14:31 | disposition home or self-care (01) ==
PROVIDERS: Emergency Provider Physician Assistant; PCP Internal Medicine
DX: K57.92 Diverticulitis of intestine, part unspecified, without perforation or abscess without bleeding (principal); K59.00 Constipation, unspecified
CPT/HCPCS: 36415; 74177; 80053; 83690; 85025; 93005; 93010; 99284; Q9967

== ENCOUNTER 2021-08-01 08:05 | Inpatient (IN) | payer OTHER, SELFPAY ==
[2021-07-03 14:33] VITALS: BMI 32.5
[2021-07-31 13:39] VITALS: BMI 38.0
[2021-08-01] VITALS (16 sets, daily range): BP systolic 112–140; BP diastolic 65–85; PULSE 84–122; RESP 12–17; TEMP 35.8–38.3; O2SAT 88–98; BMI 38.0
--- NOTE | 2021-08-01 | PATH_ITS ---
[facility] Accession Number: [id number] . 01 Material submitted: . PART A: colon - SIGMOID COLON PART B: anastomosis - ANASTOMOTIC RINGLETS . 01 Clinical history: . LAP-ASSISTED COLECTOMY . 02 Diagnosis: A. Sigmoid Colon, Sigmoidectomy: Segment of colon with diverticulosis and mural abscess, consistent with diverticulitis. No evidence of neoplasm. . B. Anastomotic Ringlets, Excision: Colonic tissue with no diagnostic abnormality. No evidence of neoplasm. MRV 08/04/2021 1400 Local . 02 Electronically signed: . Noah Espinosa MD, PhD, Pathologist NPI- [id number] . 01 Gross description: . A. Specimen A is received in formalin labeled sigmoid colon and consists of a 25.0 cm in length x 2.5 cm in diameter portion of colon with two stapled margins. The serosa is neri-pink to pink-red, focally hemorrhagic with focal fibrinous adhesions and a moderate amount of attached adipose tissue. Opening reveals a neri-pink mucosa with normal mucosal folds. There are multiple intact diverticula throughout the specimen. The wall thickness measures up to 0.5 cm. Sectioning through the attached adipose tissue reveals neri-yellow lobulated cut surfaces. Food Safety Scientist sections are submitted. . A1-A2 - Stapled margins, denial management representative perpendicular sections (blue). A3-A5 - Food Safety Scientist diverticula. . B. Specimen B is received in formalin labeled anastomotic ringlets and consists of two annular portions of neri-pink focally hemorrhagic colon measuring 1.8 x 1.5 x 1.5 cm and 2.5 x 1.2 x 1.1 cm. Food Safety Scientist sections of each portion are submitted in cassettes B1-B2. ([id number]) . /[facility] 08/02/2021 1736 Local . 02 Pathologist provided ICD-10: K57.92 . 02 CPT . 739422, [id number] Performed at: 01 [facility] [address] [id number] MD Kobe Bates MD Phone: [phone] Performed at: 02 [facility] [address] [place], [place] [id number] MD Theresa Austin MD Phone: [phone]
[2021-08-01 08:55] LABS: COVID19 -Nasal RAPID Negative (Negative)
--- NOTE | 2021-08-01 09:05 | PM.PREOP ---
Pre-operative Note Interval Note History & Physical reviewed/Exam performed by Physician: Yes Changes to H&P: No
--- NOTE | 2021-08-01 09:18 | PM.PREOP ---
Pre-operative Note COVID-19 COVID-19 status: Negative Result date/Date tested (Pos, Neg/Pending): 08/01/21 Interval Note History & Physical reviewed/Exam performed by Physician: Yes Changes to H&P: No
[2021-08-01] MEDS: LACTATED RINGERS 1,000 ML 100 ML IV ×4 (09:45→23:28)
[2021-08-01] MEDS: PIPERACILLIN/TAZO 4.5 GM in SODIUM CHLORIDE 0.9% 100 ML 200 ML IV (10:15)
[2021-08-01] MEDS: SCOPOLAMINE 1 PATCH TOP (10:30)
--- NOTE | 2021-08-01 10:52 | P.OP_ITS ---
Procedure & Clinicians Procedure: Cystoscopy with bilateral lighted ureteral catheter placement, placement of Larkin catheter Same procedure as scheduled: Yes Indications: This is a 61-year-old female with a long history of diverticulitis and diverticular abscess. She presents today for laparoscopic colectomy. Her surgeon Dr. Florez has requested bilateral lighted ureteral catheters to help protect the ureters. The patient has been counseled regarding the procedure, risks, alternatives and wishes to proceed. Informed consent has been obtained. Surgeon: Jose Schilling Click Yes if Unassisted: Yes Anesthesia Type: General Operative Notes Findings: External genitalia normal urethra normal along its length ureteral orifices in normal position with clear efflux. 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 The left went up without difficulty and this see would indicate that likelihood of a duplication as being less but it is still possible. Retrograde pyelogram was not performed on the left side. The catheter with 3 distal bars was placed in the right collecting system. Dr. Florez was informed of the duplication on the right and the possibility of a duplication on the left. The bladder was otherwise unremarkable there was no evidence of fistula no evidence of inflammation or irritation. And no other abnormal mucosal lesions. Sixteen Portuguese 5 cc Larkin catheter was left in place with 10 cc in the balloon the ureteral catheters were Tegaderm to to the Larkin. Closure Type: not applicable Specimen(s): none sent Applied: catheter and other (Bilateral lighted ureteral catheters) Estimated Blood Loss (mL): 0 Blood products transfused: none Complications: none Post-operative Condition: stable Disposition: other (Patient went on to laparoscopic procedure by Dr. Florez this will be dictated under separate cover) Plan for aftercare: Per Dr. Florez
--- NOTE | 2021-08-01 11:20 | PM.PROC.1 ---
Procedures Date/Time Date of procedure: 08/01/21 Time of procedure: 09:45 General Procedure description: Thoracic epidural placed pre-operatively for post-op pain control after a laparoscopic assisted colectomy with Dr. Florez. Risk and benefits of the procedure where discussed with the patient who agreed to procedure. ASA monitors were in place. 50mcg fentanyl and 2mg midazolam were given for procedural sedation. Skin was prepped with chlorhexidine and allowed to fully dry. Using sterile gloves, hat and mask, patient was draped in sterile fashion. 1% lidocaine was injected under skin for local skin anesthesia. Using an 18 ga Graine de Cadeaux needle and low resistance saline syrine, epidural space was located at the level of T9-10. Loss of resistance occured at 6cm deep to skin. Epidural catheter was threaded to 11cm at skin with 5cm of catheter in epidural space. Patient reported only sensation of pressure in thoracic area of work, no parasthesias. 3mL of 1.5% lidocaine with epinephrine were given as test dose with no reactions. Epidural catheter was secured in place with Tegaderm and Medipore tape. Patient tolerated procedure well with no complication. Bolus dosing will be done after procedure with 0.125% bupivacaine with 2mcg/mL fentanyl. Initial infusion rate will be set to 6mL/hr with PCEA demand dose option set to 3mL q15 min.
--- NOTE | 2021-08-01 11:26 | SUR.OPER ---
Lithotomy on padded OR bed. [place] Pad Positioner under torso. Head on pillow, arms padded and tucked at sides. Legs secured in padded yellow fins stirrups.
[2021-08-01] MEDS: BUPIVACAINE 0.25% (PF) VIAL 30 ML INJ (11:37)
[2021-08-01] MEDS: IOPAMIDOL 15 ML VIAL INJ (11:37)
--- NOTE | 2021-08-01 11:40 | DI.RAD.S_ITS ---
PROCEDURE: XR ABDOMEN 1V INDICATIONS: BILATERAL STENT PLACEMENT TECHNIQUE: 6 fluoroscopic images view of the abdomen acquired. COMPARISON: [facility], CT, CT ABDOMEN PELVIS W TATA, 06/29/2021, 12:57. FINDINGS: Left renal wire with the tip in the region of the renal pelvis. A stent is placed. Duplicated right renal collecting system. The ureters merge in the upper abdomen. Right renal wire with the tip in within the superior pole moiety. A stent is placed in partially visualized. IMPRESSION: Intraoperative guidance. Bilateral ureteral stents. Duplicated right renal collecting system. Dictated by: Salvador Velasquez M.D. on 08/01/2021 at 17:00 Approved by: Salvador Velasquez M.D. on 08/01/2021 at 17:03
[2021-08-01] MEDS: MINERAL OIL LIGHT TOPICAL 10 ML TOP (11:41)
--- NOTE | 2021-08-01 16:09 | SUR.PHASEI ---
1600 States feels like unable to void, catherter flushed with sterile saline, but doesn't seemed plugged. Urine bloody. Report given to BROADCAST CHIEF ENGINEER.
--- NOTE | 2021-08-01 16:19 | P.OP_ITS ---
Operative Date/Time/Diagnoses Date of procedure: 08/01/21 Time of procedure: 16:19 Pre-op diagnosis: diverticulitis Post-op diagnosis: same Procedure & Clinicians Procedure: laparoscopic assisted sigmoid colectomy Same procedure as scheduled: Yes Indications: 61 year old woman with recurrent episodes of diverticulitis. Surgeon: Shane Florez Sugar Cane Planting Equipment Operator: Peña Mcfadden Anesthesia Type: General Operative Notes Findings: negative leak test. Soft pliable upper rectum Specimen(s): other (sigmoid colon, anstamotic donuts) Estimated Blood Loss (mL): 100 Procedure in detail: The patient was brought to the operating room and placed supine on the table. Bilateral lower extremity compression devices were applied. General anesthesia was induced and they were intubated with an endotracheal tube. They were placed in the lithotomy position and prepped and draped in sterile fashion. Dr. Schilling placed bilateral lighted ureteral stents and a Larkin catheter. They received 3.375 g of Zosyn prior to skin incision. Time-out was performed to ensure the correct patient procedure necessary equipment within the operating room. An infraumbilical 1 cm incision was made, the umbilical stalk was elevated, the fascia was sharply incised and the abdomen was entered atraumatically. Pneumoperitoneum was established. The laparoscope was inserted into the abdomen, inspection was made there was no evidence of injury upon entry. 5 mm ports were placed suprapubic, left lower quadrant and a 12 mm trocar in the right lower quadrant. There were adhesions between the the sigmoid colon and the left pelvic sidewall consistent with a history of multiple episodes of diverticulitis. The attachments between the sigmoid colon and the side wall were taken with electrocautery and dissection was carried along the white line of Toldt to the splenic flexure. The sigmoid colon was elevated towards the abdominal wall to put the mesocolon on stretch and identify the distal ELIZABETH and sigmoidal vessels. They were difficult to visulaize secondary to the adiposity of the sigmoid mesocolon and therefore a limited laparotomy was made. The ureter was identified in the retroperitoneum and kept posterior out of harms way. The sigmoid colon was transected using the TA stapler distal to the sigmoid colon in place of soft pliable colon. The sigmoid mesentery was taken with the ligature close to the colon wall all the way to the upper rectum where the rectum was soft and without evidence of diverticulosis. . The distal transection was made with TA stapler with a bowel staple load. The specimen was passed off the field labeled sigmoid colon. A bowel clamp was placed carefully over the proximal colon and the staple line was excised. A 3-0 Prolene suture was pursestrung and a 29 mm EEA anvil was placed. The EEA stapler was advanced through the rectum and its point was deployed under direct visualization through the anterior rectal wall. Ensuring that the colon mesentery was without twist, the anvil and stapler were mated and the anastomosis was completed without tension. The stapler was removed and inspection of the anastomotic donuts demonstrated an intact proximal and distal anastamotic doughnuts. The proximal bowel was occluded, the pelvis filled with saline and insufflation of the rectum demonstrated no leak. The abdomen was copiously irrigated and hemostasis checked. The midline fascia was closed with #1PDS running fashion. The subcutaneous tissues were reapproximated using 3 0 Vicryl, skin closed with 3-0 Monocryl. The fascia of the 12 mm trocar site in the right lower quadrant was closed with 0 Vicryl in figure 8 fashion. The laparoscopic port incisions were closed with 4-0 Monocryl. The skin was sealed with Dermabond. The sponge instrument count at the end of the operation was correct. The patient emerged from general anesthesia, extubated and transferred to the postoperative care unit in stable condition. Complications: none Post-operative Condition: stable Disposition: Acute Care
[2021-08-01] MEDS: FENT 2MCG/ML BUPIV 0.125% EPI 200 MCG/100 ML PLAST..BAG 8 MCG EPIDURAL ×2 (17:03→20:13)
[2021-08-01] MEDS: PIPERACILLIN/TAZO 3.375 GM in SODIUM CHLORIDE 0.9% 100 ML 25 ML IV (17:18)
[2021-08-01 18:35] LABS: Add Manual Diff / Slide Review NO; Basophils Absolute Auto 0 /uL (0-100); Basophils Percent Auto 0.3 % (0-2); Eosinophils Absolute Auto 0 /uL (0-450); Eosinophils Percent Auto 0.3 % (2-4); Hematocrit 43.3 % (36-46); Hemoglobin 14.2 g/dL (12.0-16.0); Lymphocytes Absolute Auto 400 /uL (1100-4500); Lymphocytes Percent Auto 2.1 % (25-40); Mean Corpuscular HGB Conc 32.8 % (30-36); Mean Corpuscular Hemoglobin 26.8 PG (26-34); Mean Corpuscular Volume 81.7 fL (80-100); Monocytes Absolute Auto 900 /uL (0-900); Monocytes Percent Auto 5.2 % (3-14); Neutrophils Absolute Auto 15600 /uL (1500-7000); Neutrophils Percent Auto 92.1 % (50-75); Platelet Count 192 X10^3/uL (150-400); Red Cell Distribution Width 17.2 % (11.6-14.8); White Blood Cell Count 16.9 X10^3/uL (4.5-11.0)
[2021-08-01] MEDS: ACETAMINOPHEN 325 MG TABLET 650 MG PO ×2 (18:58→23:30)
[2021-08-01 19:05] LABS: BUN Creatinine Ratio 15.7 (6-22); Blood Urea Nitrogen 11 mg/dL (7-17); Calcium 8.8 mg/dL (8.4-10.2); Carbon Dioxide 24 mmol/L (22-32); Chloride 105 mmol/L (98-107); Estimated Glomerular Filt Rate > 60.0 mL/min (>60); Glucose 207 mg/dL (80-110); HEMOLYSIS < 15 (0-50); Phosphorous 5.2 mg/dL (2.8-4.1); Potassium 4.5 mmol/L (3.4-5.1); Sodium 136 mmol/L (137-145)
[2021-08-01] MEDS: OXYCODONE IR 5 MG TABLET PO (22:01)
[2021-08-01] MEDS: ONDANSETRON 4 MG/2 ML INJ IV (22:02)
[2021-08-02] VITALS (13 sets, daily range): BP systolic 72–128; BP diastolic 29–60; PULSE 58–92; RESP 14–18; TEMP 36.9–38.2; O2SAT 92–96
[2021-08-02] MEDS: HYDROMORPHONE 1 MG INJ IV ×3 (00:39→21:37)
[2021-08-02] MEDS: PIPERACILLIN/TAZO 3.375 GM in SODIUM CHLORIDE 0.9% 100 ML 25 ML IV ×2 (00:40→08:38)
[2021-08-02] MEDS: ONDANSETRON 4 MG/2 ML INJ IV (01:06)
[2021-08-02 05:28] LABS: Add Manual Diff / Slide Review NO; Basophils Absolute Auto 0 /uL (0-100); Basophils Percent Auto 0.3 % (0-2); Eosinophils Absolute Auto 0 /uL (0-450); Eosinophils Percent Auto 0.1 % (2-4); Hemoglobin 12.2 g/dL (12.0-16.0); Lymphocytes Absolute Auto 800 /uL (1100-4500); Lymphocytes Percent Auto 5.6 % (25-40); Mean Corpuscular Volume 81.8 fL (80-100); Monocytes Absolute Auto 1100 /uL (0-900); Neutrophils Absolute Auto 11600 /uL (1500-7000); Platelet Count 211 X10^3/uL (150-400); Red Blood Cell Count 4.52 X10^6/uL (4.0-5.2); Red Cell Distribution Width 17.2 % (11.6-14.8); White Blood Cell Count 13.5 X10^3/uL (4.5-11.0)
[2021-08-02 05:33] LABS: BUN Creatinine Ratio 18.7 (6-22); Blood Urea Nitrogen 14 mg/dL (7-17); Calcium 8.2 mg/dL (8.4-10.2); Carbon Dioxide 26 mmol/L (22-32); Chloride 104 mmol/L (98-107); Estimated Glomerular Filt Rate > 60.0 mL/min (>60); Glucose 152 mg/dL (80-110); HEMOLYSIS < 15 (0-50); Potassium 4.4 mmol/L (3.4-5.1); Sodium 133 mmol/L (137-145)
[2021-08-02] MEDS: ACETAMINOPHEN 325 MG TABLET 650 MG PO ×3 (06:17→19:01)
[2021-08-02] MEDS: FENT 2MCG/ML BUPIV 0.125% EPI 200 MCG/100 ML PLAST..BAG 8 MCG EPIDURAL ×2 (06:18→14:45)
[2021-08-02] MEDS: ENOXAPARIN 40 MG/0.4 ML SYRINGE SUBCUT (08:37)
[2021-08-02] MEDS: OXYCODONE IR 5 MG TABLET PO ×2 (08:37→13:40)
--- NOTE | 2021-08-02 10:29 | P.PN_ITS ---
Subjective Subjective Date Patient Seen: 08/02/21 Time Patient Seen: 10:30 Interval history: Flatus and small volume emesis. Abdominal pain well controlled with epidural. No current nausea. Exam Vital Signs (past 8 hours): - 08/02/21 05:00 08/02/21 06:17 08/02/21 08:22 Temperature 99.4 F 100.1 F H 100.7 F H Pulse Rate 89 70 Respiratory Rate 18 17 Blood Pressure 111/53 L 102/42 L Pulse Oximetry 93 93 Oxygen Delivery Method Room Air Oxygen Flow Rate 0 Narrative Exam Narrative: Gen-Adult woman alert and oriented Chest-Non labored Abdomen-Intra abdominal drain sero sanginous appropriately tender to palpation. Dressings CDI. Objective Labs Result Diagrams: 08/02/21 04:35 08/02/21 04:35 Labs: Laboratory Results - last 24 hr 08/01/21 08/01/21 08/02/21 18:27 18:27 04:35 WBC 16.9 H 13.5 H RBC 5.30 H 4.52 Hgb 14.2 12.2 Hct 43.3 37.0 MCV 81.7 81.8 MCH 26.8 27.0 MCHC 32.8 33.0 RDW 17.2 H 17.2 H Plt Count 192 211 Neut % (Auto) 92.1 H 86.0 H Lymph % (Auto) 2.1 L 5.6 L [place] % (Auto) 5.2 8.0 Eos % (Auto) 0.3 L 0.1 L Baso % (Auto) 0.3 0.3 Neut # (Auto) 88241 H 49456 H Lymph # (Auto) 400 L 800 L [place] # (Auto) 900 1100 H Eos # (Auto) 0 0 Baso # (Auto) 0 0 Sodium 136 L Potassium 4.5 Chloride 105 Carbon Dioxide 24 BUN 11 Creatinine 0.70 Estimated GFR > 60.0 BUN/Creatinine Ratio 15.7 Glucose 207 H Calcium 8.8 Phosphorus 5.2 H Magnesium 2.0 08/02/21 04:35 WBC RBC Hgb Hct MCV MCH MCHC RDW Plt Count Neut % (Auto) Lymph % (Auto) [place] % (Auto) Eos % (Auto) Baso % (Auto) Neut # (Auto) Lymph # (Auto) [place] # (Auto) Eos # (Auto) Baso # (Auto) Sodium 133 L Potassium 4.4 Chloride 104 Carbon Dioxide 26 BUN 14 Creatinine 0.75 Estimated GFR > 60.0 BUN/Creatinine Ratio 18.7 Glucose 152 H Calcium 8.2 L Phosphorus Magnesium PFSH Medical History (Updated 07/27/21 @ 14:10 by Jose Schilling MD) Allergic rhinitis (1977) Anemia (2011) Anxiety (1999) Asthma (1999) Cholelithiasis 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 Colon polyps (03/14/16) Depression (1999) Diverticular disease (2015) Essential hypertension Hearing loss (2013) History of blood transfusion (2014) History of diverticular abscess History of diverticulitis Hyperglycemia Hyperglycemia Kidney stones (1984) Personal history of breast cancer Preoperative examination Shoulder problem (Unknown) Tinnitus Surgical History (Updated 07/31/21 @ 13:48 by Tea Hammond RN) H/O colonoscopy with polypectomy (03/14/16) History of tonsillectomy Hx of cholecystectomy (05/09/21) S/P left mastectomy (~08/2019) Family History Mother Heart disease Stroke Cancer Alzheimer's disease Leukemia Father Alzheimer's disease Brother Cancer Brother Crohns disease Grandfather Heart disease Alzheimer's disease Grandmother No problems noted. Grandfather Cancer Leukemia Grandmother Cancer Liver cancer Sister No problems noted. Sister No problems noted. Social History household members: spouse Smoking Status: Never smoker second hand exposure: No alcohol intake: current substance use type: does not use Assessment & Plan Post-op Postoperative Procedures: Procedures Operation Date: 08/01/21 09:15 Actual Procedure Side Surgeon s Placement of Ureteral Stent Bilateral Jose Schilling MD p Laparoscopically Assisted Sigmoid Colectomy converting to open Shane ordoñez MD Postoperative plan narrative: 61 y.o woman POD 1 sp laparscopic assisted sigmoid colectomy. Doing well. -Clear liquid diet -Saline lock when adequately tolerating PO -Out of bed to chair -PT/OT -Continue hughes until epidural removed secondary to retention -SCDs and pLovenox today Quality VTE Deep Vein Thrombosis/Pulmonary Embolism Present on Admission: No
--- NOTE | 2021-08-02 12:07 | CM.DANOTE ---
Patient is a 61 yo female who was admitted on 08/01/21 for Lap Assisted Colectomy. Pt has [employer] for insurance and her PCP is Sanjay Fernandes. EMR was reviewed. Per Surgeon, pt tolerated procedure well but to have epidural remain today with possible discontinue tomorrow if stable and pt remains on clear liquids and had some flatus and to ambulate some with PT today. PT ordered and pending. SW met bedside with pt and explained role and she confirms that she lives in [place] with her spouse and is active and independent at baseline and drives. Pt denies any hx of HH or SNF and her spouse is informally her DPOA. Pt confirms that her spouse can be available for assist at d/c and also her adult Dtr plans to come over on Saturday to assist along with pt's friend who is an FIRE PREVENTION CHIEF. Pt is fully COVID vaccinated and last admission was in May 2018 for cellulitis and was able to d/c home on oral abx. Pt does not anticipate any needs and does not feel like HH RN needed at this time since she has lots of supports at home once she discharges. Plan: SW to follow closely for eventual advancing of her diet and pain management once epidural discontinued towards confirming safe d/c plan to home with family assist and any further identified discharge planning needs. TAO Capps Discharge Planning/Care Management CM Discharge Assessment Start: 08/02/21 12:05 Freq: Status: Active Protocol: Document 08/02/21 12:05 (Rec: 08/02/21 12:07 [id number]) Discharge Planning Assessment Assigned Machine Cell Tuber TAO Torrez DPOA/Assigned Designee Name spouse Ceazr Contact Information [phone] Advance Directives? No Advance Directives on File No History Provided By Patient,Medical Record Has Patient been admitted in last 30 No days? Prior Living Arrangements House Household Members spouse Type of transporation used prior to Drives own vehicle admit Independent with ADL's Yes Is patient alert and oriented? Yes Caregiver for Another No Barriers to Discharge No Discharge Plan Home Transportation Arrangement Spouse/Cezar # Whiteboard Updated in Patient Room with Yes name and ext. # of Machine Cell Tuber Review Status In Process Please Provide Date Initial DC 08/02/21 Assessment Was Performed Next Review Type Continued Stay Review Pre-Anesthesia Assessment Start: 07/31/21 13:39 Freq: Status: Complete Protocol: Document 07/31/21 13:39 CAB (Rec: 07/31/21 13:46 CAB [id number]) Pre-Anesthesia Assessment PAC Comment Unable to reach pt by phone to schedule PAC, no answer, no vm. Chart review only. Patient Information Reviewed Via Chart Review Comment COVID screen @ [facility] on admit Primary Care Provider Murphy Blanca Seen Specialist in Last 12 Months Yes Specialist Seen General surgeon,Urologist Primary Language Ivorian Preferred Language Ivorian Wind Turbine Service Technician Required No Height 162.56 cm Weight 100.698 kg Body Mass Index (BMI) 38.0 Barriers to Learning None Hx Anesthesia Reactions Yes: vomiting after general anesthesia Hx Family Anesthesia Reaction No Hx Malignant Hyperthermia No Hx Blood Transfusions Yes: r/t menorrhagia Hx Blood Transfusion Reaction No Anesthesia Review Requested No House Director No alcohol intake current alcohol intake frequency a few times a month Smoking Status Never smoker Substance Use Type marijuana Patient is completely paralyzed or No completely immobile Mental Status Oriented to own ability CPAP/BIPAP use not prescribed Currently Taking a Beta Lisy No Hx Chest Pain Yes: Atypical-Admit to [facility] 2020, cardiac work up negative Hx Syncope or Dizziness Yes: Vertigo Anti-Coagulant Therapy No Hx Pacemaker/ICD No Pacemaker Rep Required? No Gastrointestinal Symptoms Abdominal Pain,Nausea Urinary Catheter Present No Hx Urinary Self Catheterization No Diabetes No Patient No Lactating No Presence of External or Internal Medical Yes: titanium l eye socket Devices Received a COVID vaccine? Yes Marital Status Lives With spouse Patient Discharge Plan Description Return Home Do You Have Any Spiritual Beliefs That No May Affect Your HC Choices? Do You Have Any Cultural Practices That No May Affect Your HC Choices? Emergency Contact Name Jose Mireles Emergency Contact Advance Directives? No Power of Firefighting Equipment Specialist No
--- NOTE | 2021-08-02 14:00 | PT.IIE ---
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 Colon polyps (03/14/16) Depression (1999) Diverticular disease (2015) Essential hypertension Hearing loss (2013) History of blood transfusion (2014) History of diverticular abscess History of diverticulitis Hyperglycemia Hyperglycemia Kidney stones (1984) Personal history of breast cancer Preoperative examination Shoulder problem (Unknown) Tinnitus Physical Therapy Inpatient Evaluation/Re-Eval M1 PT/OT-IP Prior Functional Status Start: 08/02/21 14:45 Freq: NEEDED Status: Active Protocol: Document 08/02/21 14:00 AB (Rec: 08/02/21 15:01 AB [id number]) Medical Review Prior Functional Status Medical History Reviewed Yes Communication able to make needs known Mobility and Gait pt stated that she is independent with all mobilities and ambulation without AD Social History Household Members spouse,children Living Arrangements House Number of Floors (Floors) Two Floors Number of Stairs To Enter/Railing? pt can stay on main level of the house no steps to enter Home Environment Standard Height Toilet,Tub/ Shower Home Equipment Straight Cane,Grab Bars In Shower Additional Social History Comment can use a recliner to sleep on ; pt has a high bed that needs a step stool for pt to be able to get up onto the bed ( pt stated that she will ask her spouse to take spring box out) pt will have her spouse and daughter to assist her at home M2 PT-IP Current Condition Start: 08/02/21 14:45 Freq: NEEDED Status: Active Protocol: Document 08/02/21 14:00 AB (Rec: 08/02/21 15:01 AB [id number]) Physical Therapy Current Condition Current Condition Evaluation Date 08/02/21 Treatment Diagnosis s/p colectomy; difficulty in walking Onset Date 12/14/21 M3 PT-IP Subjective Start: 08/02/21 14:45 Freq: NEEDED Status: Active Protocol: Document 08/02/21 14:00 AB (Rec: 08/02/21 15:01 [id number]) Subjective Physical Therapy Visit Type Type Initial Evaluation Visit Start Time 14:00 Visit Stop Time 14:40 Total Visit Minutes 40 Number of RESTAURANT AND BAR MANAGER Visits 0 Physical Therapy Visit Comments Patient Comments agreeable to do PT Therapy Pain Assessment Pain When Pain Assessed At Rest Pain Present Pain Present Pain Reported Location Abdomen Intensity 2 Scale Used Numeric (0 - 10) Pain Management Techniques Distraction,Modification of Treatment,Re-positioning, Timing of Activity with Medications M4 PT-IP Mobility and Gait Start: 08/02/21 14:45 Freq: NEEDED Status: Active Protocol: Document 08/02/21 14:00 AB (Rec: 08/02/21 15:01 [id number]) PT-Bed Mobility Assessment Rolling Type of Rolling Log Rolling Level of Assist Moderate Assistance Supine to Sit Supine to Sit Maximum Assistance,1 Person Assistance,Bedrails PT-Transfer Assessment Sit to and From Stand Sit to and from Stand Minimal Assistance,1 Person Assistance,Use of Upper Extremities Equipment Transfer Assistive Device Gait Belt,Front Wheeled Walker Orthotic/Prosthetic Devices or Brace: No Transfers Transfer Destination Chair Transfer Technique Stand Step Pivot Transfer Ability Level of Assist Minimal Assistance,1 Person Assistance,Use of Upper Extremities Comments Mobility Comments educated pt on abdominal precautions and log roll bed mobility. BP in supine prior to mobility: 108/48. pt completed supine to sit log roll max A and max cues. able to sit on EOB with initial CGA but then SBA after positioning. BP in sittin/44. completed sit to stand min A and step transfer to chair min A using FWW. pt agreed to ambulate. completed sit to stand from chair min A and ambulated ~ 5 ft forward and then backwards (limited due to epidural tube) using FWW min A. pt agreed to stay up on chair. positioned on chair. call light and table placed within reach. BP checked: 113/37. checked again: 106/40. informed nurse . Gait Assessment Gait Gait Assistance Required: Minimum Assistance Distance (Feet) 10 Able to Maintain Weight Bearing Status Yes During Gait Assistive Devices Assistive Device Gait Belt,Front Wheeled Walker Orthotic/Prosthetic Devices or Brace: No Gait Deviations General Gait Pattern Decreased Stride Length, Decreased Feet Clearance Factors Limiting Gait Function Factors Limiting Gait Function Decreased Activity Tolerance, Decreased Strength,Limited Range of Motion,Pain,Poor Balance,Poor Safety Awareness Comments Gait Comments pls refer to mobility section for details PT-Balance Assessment Sitting Balance and Reactions Static Sitting Balance Ability Good Dynamic Sitting Balance Ability Fair Standing Balance and Reactions Static Standing Balance Ability Fair Dynamic Standing Balance Ability Fair Device Used FWW M5 PT-IP Objective Assessments Start: 08/02/21 14:45 Freq: NEEDED Status: Active Protocol: Document 08/02/21 14:00 AB (Rec: 08/02/21 15:01 [facility] Orientation Orientation/Cognition Level of Alertness Alert Orientation Name,Place,Situation Language Function Ability No Deficits Noted Safety Awareness Decreased Safety Awareness Memory Description Short Term Impaired Gross Range of Motion Lower Extremity ROM Assessment Within Functional Limits Strength Lower Extremity Strength Hip 4-/5 Knee 4-/5 Sensation Assessment Sensation Gross Sensation WNL Muscle Tone Muscle Tone WNL Yes M6 PT-IP Treatment Start: 08/02/21 14:45 Freq: NEEDED Status: Active Protocol: Document 08/02/21 14:00 AB (Rec: 08/02/21 15:01 [facility] Physical Therapy Treatment Education Education Provided Precautions,Safety M7 PT-IP Assessment and Plan Start: 08/02/21 14:45 Freq: NEEDED Status: Active Protocol: Document 08/02/21 14:00 AB (Rec: 08/02/21 15:01 [facility] PT Summary Assessment and Plan Potential Rehabilitation Potential Good Status of Condition at Evaluation Evolving Summary Impairments Pain,ROM,Strength,Balance, Coordination,Sensation,Tone, Cognition,Bed Mobility, Transfers,Gait,Activity Tolerance Assessment Summary pt requiring min A with mobility and has decrease activity tolerance affecting independence. pt plans to go home and has her family to assist her and will conduct caregiver training when appropriate. Also informed pt to acquire a FWW and options provided. pt stated that she will ask her spouse to borrow from the soroptomist. will continue to assess progress. Goals Bed Mobility Goal Standby Assistance Transfer Goal Standby Assistance,Front Wheeled Walker Gait Goal Standby Assistance,Front Wheel Walker Gait Distance 150 Other Goals improve ambulation without AD/ SPC 200 ft SBA up/down steps using 1 rail SBA Days to Meet Goals 10 Frequency of Treatment Frequency Of Treatment Once a Day Treatment Plan Physical Therapy Treatment Plan Bed Mobility Training,Transfer Training,Gait Training, Therapeutic Exercise,Balance Retraining,Post Op Education, Discharge Planning,Hot or Cold Pack,Neuromuscular Re-ed, Coordination Retraining,Manual Therapy Precautions Abdominal Surgery Precautions Log Roll,Lifting Restrictions, Gait Belt above Incisional Area Recommendations To Nursing Amount of Assist Needed 1 Person Assist Discharge Recommendations PT Discharge Recommendations Home with Assistance,Home Health Equipment Needed for Home Before FWW Discharge Transportation Needs at Discharge Private Vehicle
[2021-08-02] MEDS: LACTATED RINGERS 1,000 ML 100 ML IV (16:42)
--- NOTE | 2021-08-02 18:38 | PC.NURSE ---
Day Shift Note Pt alert and oriented x3. Reports pain well controlled with epidural and intermittent oral/IV pain meds. Decreased sensation noted at torso around incision site. Able to move BLEs, denies numbness. Tolerating general diet without issue this evening, no nausea this shift. Abdominal incision dressing (steri-strips and ABD) C/D/I. Epidural dressing with old bloody drainage. Up to chair with PT. Pt had loose liquid stool via BSC and appeared diaphoretic and vacant/fatigued. BP checked and was 90s/30s. Pt responsive and conversing but slightly unstable when standing, second person in room to assist during deborah-care, pt back to bed via BSC and did well with logrolling back into bed. BP again assessed and down to 70s/40s. Epidural stopped at this time. Dr. Florez at bedside at this time and order received to restart epidural at 4 ml/hr (half rate) once MAP 65. BP vivian to 102/42 during this discussion. Epidural restarted with at MAP 70. Pt denies pain. Per Dr. Florez, plan to d/c epidural and Larkin catheter tomorrow. Pt call light within reach, using appropriately to make needs known.
[2021-08-02] MEDS: OXYCODONE IR 5 MG TABLET 10 MG PO (21:02)
[2021-08-03 02:30] VITALS: BP 102/63; PULSE 74; RESP 16; TEMP 37.1; O2SAT 93
[2021-08-03] MEDS: HYDROMORPHONE 1 MG INJ IV ×2 (02:36→08:58)
[2021-08-03] MEDS: LACTATED RINGERS 1,000 ML 100 ML IV (02:36)
[2021-08-03] MEDS: OXYCODONE IR 5 MG TABLET 10 MG PO ×3 (04:44→14:31)
[2021-08-03 05:03] LABS: Add Manual Diff / Slide Review NO; Basophils Absolute Auto 100 /uL (0-100); Basophils Percent Auto 0.8 % (0-2); Eosinophils Absolute Auto 200 /uL (0-450); Eosinophils Percent Auto 2.4 % (2-4); Hematocrit 34.2 % (36-46); Hemoglobin 11.2 g/dL (12.0-16.0); Lymphocytes Absolute Auto 1400 /uL (1100-4500); Mean Corpuscular HGB Conc 32.7 % (30-36); Mean Corpuscular Volume 82.7 fL (80-100); Monocytes Absolute Auto 700 /uL (0-900); Monocytes Percent Auto 8.6 % (3-14); Neutrophils Absolute Auto 5700 /uL (1500-7000); Neutrophils Percent Auto 71.2 % (50-75); Platelet Count 150 X10^3/uL (150-400); Red Blood Cell Count 4.13 X10^6/uL (4.0-5.2); Red Cell Distribution Width 17.3 % (11.6-14.8)
[2021-08-03] MEDS: FENT 2MCG/ML BUPIV 0.125% EPI 200 MCG/100 ML PLAST..BAG 4 MCG EPIDURAL (05:03)
[2021-08-03] MEDS: ACETAMINOPHEN 325 MG TABLET 650 MG PO ×2 (05:03→12:20)
[2021-08-03 05:08] LABS: BUN Creatinine Ratio 14.7 (6-22); Blood Urea Nitrogen 10 mg/dL (7-17); Calcium 8.1 mg/dL (8.4-10.2); Carbon Dioxide 29 mmol/L (22-32); Chloride 107 mmol/L (98-107); Estimated Glomerular Filt Rate > 60.0 mL/min (>60); Glucose 104 mg/dL (80-110); HEMOLYSIS < 15 (0-50); Sodium 139 mmol/L (137-145)
[2021-08-03 06:00] VITALS: BP 110/59; PULSE 71; RESP 20; TEMP 37.6; O2SAT 93
--- NOTE | 2021-08-03 06:29 | PC.NURSE ---
Shift Note-Patient remains on epidural, infusing at 4ml/hr plus 3ml intermittent doses, also requesting PO oxycodone and IV Dilaudid for breakthrough pain, intermittent sharp spasms to RLQ. 50ml serous-sang fluid from JAYCO[facility], abdominal drsg D/I with small shadowing to distal end, binder in place, bowel sounds active, denies nausea. 1950ml UOP from Larkin cath, started strawberry color, slight pink tinge in am.
[2021-08-03 07:40] VITALS: BP 137/61; PULSE 75; RESP 16; TEMP 36.7; O2SAT 92
[2021-08-03] MEDS: CYCLOBENZAPRINE 10 MG TABLET PO (10:21)
--- NOTE | 2021-08-03 11:20 | PT.IPTN ---
Addendum entered and electronically signed by Cesia Gallardo PT 08/03/21 13:49: Dispensed FWW to pt. Pt signed papers. Original Note: Current Diagnoses Diverticulitis of intestine, part unspecified, without perforation or abscess without bleeding (08/01/21) Surgery Performed Operation Date: 08/01/21 09:15 Actual Procedures s Placement of Ureteral Stent(Bilateral) - Jose Schilling MD p Laparoscopically Assisted Sigmoid Colectomy converting to open - Shane Florez MD Physical Therapy Treatment Note M2 PT-IP Current Condition Start: 08/02/21 14:45 Freq: NEEDED Status: Active Protocol: Document 08/02/21 14:00 AB (Rec: 08/02/21 15:01 AB [id number]) Physical Therapy Current Condition Current Condition Evaluation Date 08/02/21 Treatment Diagnosis s/p colectomy; difficulty in walking Onset Date 08/01/21 M3 PT-IP Subjective Start: 08/02/21 14:45 Freq: NEEDED Status: Active Protocol: Document 08/03/21 11:20 AB (Rec: 08/03/21 12:54 AB [id number]) Subjective Physical Therapy Visit Type Type Treatment Note Visit Start Time 11:20 Visit Stop Time 11:45 Total Visit Minutes 25 Number of CAFET[employer] MANAGER Visits 0 Physical Therapy Visit Comments Patient Comments able to make needs known Therapy Pain Assessment Pain When Pain Assessed At Rest Pain Present Pain Present Pain Reported Location Abdomen Intensity 4 Scale Used increases to 7/10 with mobility Pain Management Techniques Distraction,Modification of Treatment,Re-positioning, Timing of Activity with Medications M4 PT-IP Mobility and Gait Start: 08/02/21 14:45 Freq: NEEDED Status: Active Protocol: Document 08/03/21 11:20 AB (Rec: 08/03/21 12:54 AB [email or web address]) PT-Bed Mobility Assessment Rolling Type of Rolling Log Rolling Level of Assist Moderate Assistance Supine to Sit Supine to Sit Moderate Assistance,Maximum Assistance,1 Person Assistance PT-Transfer Assessment Sit to and From Stand Sit to and from Stand Moderate Assistance,1 Person Assistance,Use of Upper Extremities Equipment Transfer Assistive Device Gait Belt,Front Wheeled Walker Orthotic/Prosthetic Devices or Brace: No Transfers Transfer Destination Toilet Transfer Technique ambulated using FWW Transfer Ability Level of Assist Standby Assistance,Contact Guard Assistance Comments Mobility Comments pt completed log roll bed mobility mod A and cues. pt sat on EOB SBA. c/o nausea. BP: 150/51. pt will use her recliner to sleep on at home. pt completed sit to stand from EOB mod A with pt tending to pull on FWW to assist. pt ambulated in room using FWW SBA to CGA ~ 75 ft. slow paloma with decrease step length and width. pt requested to use the toilet and ambulated to the toilet SBA using FWW. Pt wanted to use the toilet for a while. call light positioned next to pt and instructed to call for assistance and agreed. nurse informed. pt also wanted FWW to be dispensed here. informed case repairer regarding FWW order request. Gait Assessment Gait Gait Assistance Required: Standby Assistance,Contact Guard Assist Distance (Feet) 75 Able to Maintain Weight Bearing Status Yes During Gait Assistive Devices Assistive Device Gait Belt,Front Wheeled Walker Orthotic/Prosthetic Devices or Brace: No Gait Deviations General Gait Pattern Decreased Stride Length, Decreased Feet Clearance Factors Limiting Gait Function Factors Limiting Gait Function Decreased Activity Tolerance, Decreased Strength,Limited Range of Motion,Pain,Poor Balance,Poor Safety Awareness M5 PT-IP Objective Assessments Start: 08/02/21 14:45 Freq: NEEDED Status: Active Protocol: Document 08/02/21 14:00 AB (Rec: 08/02/21 15:01 AB [id number]) Orientation Orientation/Cognition Level of Alertness Alert Orientation Name,Place,Situation Language Function Ability No Deficits Noted Safety Awareness Decreased Safety Awareness Memory Description Short Term Impaired Gross Range of Motion Lower Extremity ROM Assessment Within Functional Limits Strength Lower Extremity Strength Hip 4-/5 Knee 4-/5 Sensation Assessment Sensation Gross Sensation WNL Muscle Tone Muscle Tone WNL Yes M6 PT-IP Treatment Start: 08/02/21 14:45 Freq: NEEDED Status: Active Protocol: Document 08/03/21 11:20 AB (Rec: 08/03/21 12:54 AB [id number]) Physical Therapy Treatment Education Education Provided Precautions,Safety M7 PT-IP Assessment and Plan Start: 08/02/21 14:45 Freq: NEEDED Status: Active Protocol: Document 08/03/21 11:20 AB (Rec: 08/03/21 12:54 AB [email or web address]) PT Summary Assessment and Plan Potential Rehabilitation Potential Good Summary Impairments Pain,ROM,Strength,Balance, Coordination,Sensation,Tone, Cognition,Bed Mobility, Transfers,Gait,Activity Tolerance Progress Towards Goals Slow Progress due to Pain,Slow Progress due to Activity Tolerance Assessment Summary pt requiring mod A for bed mobility but stated that she plans to use her recliner to sleep on for now upon d/c. pt will have her family to assist her at home. will dispense FWW for home use. Goals Bed Mobility Goal Standby Assistance Transfer Goal Standby Assistance,Front Wheeled Walker Gait Goal Standby Assistance,Front Wheel Walker Gait Distance 150 Other Goals improve ambulation without AD/ SPC 200 ft SBA up/down steps using 1 rail SBA Days to Meet Goals 10 Frequency of Treatment Frequency Of Treatment Once a Day Treatment Plan Physical Therapy Treatment Plan Bed Mobility Training,Transfer Training,Gait Training, Therapeutic Exercise,Balance Retraining,Post Op Education, Discharge Planning,Hot or Cold Pack,Neuromuscular Re-ed, Coordination Retraining,Manual Therapy Precautions Abdominal Surgery Precautions Log Roll,Lifting Restrictions, Gait Belt above Incisional Area Recommendations To Nursing Amount of Assist Needed 1 Person Assist Discharge Recommendations PT Discharge Recommendations Home with Assistance,Home Health Equipment Needed for Home Before FWW Discharge Transportation Needs at Discharge Private Vehicle
[2021-08-03 12:00] VITALS: BP 133/57; PULSE 83; RESP 19; TEMP 37.3; O2SAT 96
--- NOTE | 2021-08-03 15:16 | PM.DS.1 ---
History of Present Illness History of Present Illness Date Patient Seen: 08/03/21 Time Patient Seen: 15:16 Chief complaint: LAP-ASSISTED COLECTOMY Discharge Providers Provider Date of admission: 08/01/21 08:05 Discharge Date: 08/03/21 Primary care physician: Sanjay Fernandes MD Consults: 08/01/21 06:00 Consult to Discharge Planning Routine Comment: 08/02/21 12:00 Consult to Physical Therapy Evaluate & Treat Comment: Physician Instructions: Evaluate and Treat 08/03/21 11:56 Consult to Home Health Routine Comment: Reason For Exam: FWW for home use due to weakness from surgery Discharge provider: Shane Florez MD Summary Hospital Course Discharge Diagnosis: Sigmoid Colectomy Diverticulitis Hospital Course: 61-year-old woman with multiple episodes of uncomplicated diverticulitis presented for a laparoscopic assisted sigmoid colectomy. She underwent the operation July 30, 2021. Operation was unremarkable. Hospital course was routine she had return of bowel function her pain was controlled with oral medications was tolerating a diet ambulatory at time of discharge.. Exam Vital Signs (past 8 hours): - 08/03/21 07:40 08/03/21 12:00 Temperature 98.1 F 99.2 F Pulse Rate 75 83 Respiratory Rate 16 19 Blood Pressure 137/61 133/57 L Pulse Oximetry 92 96 Oxygen Delivery Method Room Air Oxygen Flow Rate 0 Narrative Exam Narrative: Constitutional-She is oriented to person, place and time. No apparent distress Cardiovascular- regular rate, no peripheral edema Pulmonary-unlabored respiratory effort, no audible wheezing Abdominal-soft, infraumbilical midline incision clean dry intact. Drain serosanguineous removed Objective Labs Result Diagrams: 08/03/21 04:20 08/03/21 04:20 Labs: Laboratory Results - last 24 hr 08/03/21 08/03/21 04:20 04:20 WBC 8.0 RBC 4.13 Hgb 11.2 L Hct 34.2 L MCV 82.7 MCH 27.0 MCHC 32.7 RDW 17.3 H Plt Count 150 Neut % (Auto) 71.2 Lymph % (Auto) 17.0 L [place] % (Auto) 8.6 Eos % (Auto) 2.4 Baso % (Auto) 0.8 Neut # (Auto) 5700 Lymph # (Auto) 1400 [place] # (Auto) 700 Eos # (Auto) 200 Baso # (Auto) 100 Sodium 139 Potassium 4.0 Chloride 107 Carbon Dioxide 29 BUN 10 Creatinine 0.68 Estimated GFR > 60.0 BUN/Creatinine Ratio 14.7 Glucose 104 Calcium 8.1 L PFSH Medical History (Updated 07/27/21 @ 14:10 by Jose Schilling MD) Allergic rhinitis (1977) Anemia (2011) Anxiety (1999) Asthma (1999) Cholelithiasis 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 Colon polyps (03/14/16) Depression (1999) Diverticular disease (2015) Essential hypertension Hearing loss (2013) History of blood transfusion (2014) History of diverticular abscess History of diverticulitis Hyperglycemia Hyperglycemia Kidney stones (1984) Personal history of breast cancer Preoperative examination Shoulder problem (Unknown) Tinnitus Surgical History (Updated 07/31/21 @ 13:48 by Tea Hammond RN) H/O colonoscopy with polypectomy (03/14/16) History of tonsillectomy Hx of cholecystectomy (05/09/21) S/P left mastectomy (~08/2019) Family History Mother Heart disease Stroke Cancer Alzheimer's disease Leukemia Father Alzheimer's disease Brother Cancer Brother Crohns disease Grandfather Heart disease Alzheimer's disease Grandmother No problems noted. Grandfather Cancer Leukemia Grandmother Cancer Liver cancer Sister No problems noted. Sister No problems noted. Social History household members: spouse and children Smoking Status: Never smoker second hand exposure: No alcohol intake: current substance use type: does not use Discharge Plan Discharge Plan Patient Disposition: Home Provider Discharge Comment: -Okay to shower, band aid over drain site. -Do not submerge wounds in water until seen in follow-up. -No lifting >20 lbs x 4 weeks. -Walking only for exercise for 4 weeks. -No driving while taking narcotics. -Diet as tolerated Discharge orders & Medications Prescriptions: New cyclobenzaprine 10 mg tablet 10 mg PO TID PRN (Reason: muscle spasm) Qty: 30 0RF oxycodone 10 mg tablet 10 mg PO Q4H PRN (Reason: pain) Qty: 30 0RF Continued acetaminophen [Tylenol] 325 mg capsule 650 mg PO QID PRN (Reason: pain) Qty: 60 0RF Discontinued levofloxacin 750 mg tablet 750 mg PO DAILY Qty: 30 0RF Follow up/Referrals: Shane Florez MD [Physician] - 1 Week () Diet/Activity/Treatments Diet: Regular Visit Report/Discharge Packet Instructions: DI for Colectomy, DI for Prescription Opioid Use, [facility]: Wound Care Discharge Data Primary Care Provider: Sanjay Fernandes VTE Deep Vein Thrombosis/Pulmonary Embolism Present on Admission: No
== END 2021-08-03 14:35 | disposition home or self-care (01) | DRG 331 ==
LOC: AC 08:26 → ICU 10:47
PROVIDERS: Urology; Admitting Provider Surgery; PCP Internal Medicine; Referring Provider Surgery; Visit Provider Surgery
PROC: 0DTE0ZZ Resection of Large Intestine, Open Approach (ICD-10-PCS; 2021-08-01 09:15)
DX: K57.32 Diverticulitis of large intestine without perforation or abscess without bleeding (principal); F41.9 Anxiety disorder, unspecified; F32.9 Major depressive disorder, single episode, unspecified; I10 Essential (primary) hypertension; E78.5 Hyperlipidemia, unspecified; Z20.822 Contact with and (suspected) exposure to COVID-19
CPT/HCPCS: 36415; 44204; 52005; 74018; 76000; 80048; 82962; 83735; 84100; 85025; 87635; 97116; 97162; 97530; C9803; J1100; J1170; J1650; J1885; J2250; J2405; J2543; J2704; J3010

== ENCOUNTER → 2021-09-27 15:31 | Outpatient (CLI) | payer OTHER, SELFPAY ==
[2021-08-01 18:38] VITALS: BMI 38.0
--- NOTE | 2021-09-27 | DI.MG.S_ITS ---
UNILATERAL RIGHT DIGITAL SCREENING MAMMOGRAM 3D/2D WITH CAD: 09/27/2021 CLINICAL: Routine screening. Breast cancer. Comparison is made to exams dated: 06/20/2020 mammogram, 06/09/2019 mammogram - [facility], 01/25/2014 mammogram, and 07/27/2013 mammogram - [facility]. There are scattered fibroglandular elements in right breast. Current study was also evaluated with a Computer Aided Detection (CAD) system. There are benign calcifications in the right breast. There also is a biopsy clip in the right breast. No significant masses, calcifications, or other findings are seen in the breast. There has been no significant interval change. IMPRESSION: BENIGN There is no mammographic evidence of malignancy. A 1 year screening mammogram is recommended. This exam was interpreted at Station ID: [id number]. NOTE: For mammograms, a report in lay terms will be sent to the patient. Approximately 15% of breast malignancies will not be visualized mammographically. In the management of a palpable breast mass, a negative mammogram must not discourage biopsy of a clinically suspicious lesion. Electronically Signed By: Salvador paz/ren:09/27/2021 17:36:09 letter sent: Normal Exam ACR BI-RADS Category 2: Benign Finding(s) 3342F
== END ==
PROVIDERS: PCP Internal Medicine; Referring Provider Internal Medicine; Visit Provider Internal Medicine
DX: Z12.31 Encounter for screening mammogram for malignant neoplasm of breast (principal); Z85.3 Personal history of malignant neoplasm of breast
CPT/HCPCS: 77063; 77067

== ENCOUNTER → 2023-02-21 08:44 | Outpatient (CLI) | payer OTHER, SELFPAY ==
[2021-08-01 18:38] VITALS: BMI 38.0
[2023-02-21 10:18] LABS: Add Manual Diff / Slide Review NO; Basophils Absolute Auto 100 /uL (0-100); Eosinophils Absolute Auto 300 /uL (0-450); Eosinophils Percent Auto 5.4 % (2-4); Hemoglobin 14.3 g/dL (12.0-16.0); Lymphocytes Absolute Auto 900 /uL (1100-4500); Lymphocytes Percent Auto 15.4 % (25-40); Mean Corpuscular HGB Conc 33.2 % (30-36); Mean Corpuscular Volume 87.3 fL (80-100); Monocytes Absolute Auto 400 /uL (0-900); Monocytes Percent Auto 7.1 % (3-14); Neutrophils Absolute Auto 4200 /uL (1500-7000); Neutrophils Percent Auto 71.1 % (50-75); Platelet Count 201 X10^3/uL (150-400); Red Blood Cell Count 4.92 X10^6/uL (4.0-5.2); Red Cell Distribution Width 13.8 % (11.6-14.8)
[2023-02-21 10:41] LABS: Alanine Aminotransferase 31 IU/L (<35); Albumin 4.5 g/dL (3.5-5.0); Albumin Globulin Ratio 1.7 (1.0-2.8); Alkaline Phosphatase 84 U/L (38-126); Aspartate Aminotransferase 30 IU/L (14-36); BUN Creatinine Ratio 19.1 (6-22); Bilirubin Total 0.5 mg/dL (0.2-1.3); Blood Urea Nitrogen 13 mg/dL (7-17); Calcium 8.8 mg/dL (8.4-10.2); Carbon Dioxide 27 mmol/L (22-32); Chloride 101 mmol/L (98-107); Cholesterol 176 mg/dL (140-199); Estimated Glomerular Filt Rate > 60 mL/min (>60); Globulin 2.7 g/dL (1.7-4.1); Glucose 108 mg/dL (80-110); HDL Cholesterol 47 mg/dL (40-60); HEMOLYSIS < 15 (0-50); LDL Cholesterol Calculated 107 mg/dL (<100); Potassium 4.5 mmol/L (3.4-5.1); Sodium 137 mmol/L (137-145); Total Protein 7.2 g/dL (6.3-8.2); Triglycerides 111 mg/dL (35-150)
[2023-02-21 11:09] LABS: TSH w/ Reflex to FT4 2.54 uIU/mL (0.47-4.68)
[2023-02-21 11:12] LABS: Ferritin 54 ng/mL (11-264)
[2023-02-22 06:35] LABS: x Labcorp Estim. Avg Glu (eAG) 137 mg/dL (.); x Labcorp Hemoglobin A1c 6.4 % (4.8-5.6)
== END ==
PROVIDERS: PCP Family Medicine; Referring Provider Family Medicine; Visit Provider Family Medicine
DX: G25.81 Restless legs syndrome (principal); R03.0 Elevated blood-pressure reading, without diagnosis of hypertension; Z00.00 Encounter for general adult medical examination without abnormal findings
CPT/HCPCS: 36415; 80053; 80061; 82728; 83036; 84443; 85025

== ENCOUNTER → 2023-03-08 14:06 | Outpatient (CLI) | payer OTHER, SELFPAY ==
[2021-08-01 18:38] VITALS: BMI 38.0
--- NOTE | 2023-03-08 14:08 | DI.MG.S_ITS ---
UNILATERAL RIGHT DIGITAL SCREENING MAMMOGRAM 3D/2D WITH CAD: 03/08/2023 CLINICAL: Routine screening. Personal history of left breast cancer. Comparison is made to exams dated: 09/27/2021 mammogram, 06/20/2020 mammogram, and 06/09/2019 mammogram - [facility]. There are scattered areas of fibroglandular density in the right breast (category b / 25%-50% glandular tissue). Current study was also evaluated with a Computer Aided Detection (CAD) system. There are benign calcifications in the right breast. There also is a biopsy clip in the right breast. No significant masses, calcifications, or other findings are seen in the breast. There has been no significant interval change. IMPRESSION: BENIGN There is no mammographic evidence of malignancy. A 1 year screening mammogram is recommended. This exam was interpreted at Station ID: [id number]. NOTE: For mammograms, a report in lay terms will be sent to the patient. Approximately 15% of breast malignancies will not be visualized mammographically. In the management of a palpable breast mass, a negative mammogram must not discourage biopsy of a clinically suspicious lesion. Electronically Signed By: Javier zacarias/ren:03/08/2023 15:09:28 letter sent: Normal Exam ACR BI-RADS Category 2: Benign Finding(s) 3342F
== END ==
PROVIDERS: PCP Family Medicine; Referring Provider Family Medicine; Visit Provider Family Medicine
DX: Z12.31 Encounter for screening mammogram for malignant neoplasm of breast (principal); Z85.3 Personal history of malignant neoplasm of breast; Z90.12 Acquired absence of left breast and nipple
CPT/HCPCS: 77063; 77067

== ENCOUNTER 2023-09-03 09:08 | Day surgery (SDC) | payer OTHER, SELFPAY ==
[2023-05-17 13:32] VITALS: BMI 38.0
--- NOTE | 2023-09-03 | PATH_ITS ---
[facility] Accession Number: [id number] No. of containers..01 Tissue . 01 Material submitted: . colon - TRANSVERSE COLON POLYP . 01 Diagnosis: Transverse Colon Polyp: Tubular adenoma. MRV 09/05/2023 1602 Local . 01 Electronically signed: . Naoh Espinosa MD, PhD, Pathologist NPI- [id number] . 01 Gross description: . TRANSVERSE COLON POLYP: Received in formalin are 4 fragment(s) of neri, soft tissue measuring 0.3 x 0.2 x 0.2 cm to 0.5 x 0.5 x 0.3 cm submitted entirely in 1 cassette(s) /BE 09/04/2023 1930 Local . 01 Pathologist provided ICD-10: D12.3 . 01 CPT . 926256 Specimen Comment: A courtesy copy of this report has been sent to [phone] Performed at: 01 [facility] [address] [place] [address], [place], [place] [id number] MD Kobe Bates MD Phone: [phone]
[2023-09-03 09:35] VITALS: BP 141/78; PULSE 102; RESP 20; TEMP 36.2; O2SAT 97; BMI 36.0
[2023-09-03] MEDS: LACTATED RINGERS 1,000 ML 42 ML IV (09:48)
--- NOTE | 2023-09-03 10:33 | P.HP_ITS ---
History of Present Illness History of Present Illness Date Patient Seen: 09/03/23 Chief complaint: Screening Colonoscopy Narrative: 63-year-old woman personal history of colonic polyps here for screening colonoscopy. Last colonoscopy 5 or 6 years ago. She had a sigmoid colectomy for recurrent diverticular disease 2020. Currently no abdominal concerns. No family history of intestinal malignancy. 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 History of blood transfusion (2014) Tinnitus Allergic rhinitis (1977) Asthma (1999) Anxiety (1999) Depression (1999) Shoulder problem (Unknown) Anemia (2011) Hearing loss (2013) Kidney stones (1984) Diverticular disease (2015) Cholelithiasis Colon polyps (03/14/16) Hyperglycemia Essential hypertension Surgical History (Updated 02/14/23 @ 22:35 by Milagros Kiser) Anesthesia History of bowel resection (~07/2021) History of eye surgery (~01/2019) Hx of cholecystectomy (05/09/21) S/P left mastectomy (~08/2019) H/O colonoscopy with polypectomy (03/14/16) History of tonsillectomy Family History (Updated 02/14/23 @ 22:46 by Milagros Kiser) Mother Heart disease Stroke Cancer Alzheimer's disease Leukemia Father Alzheimer's disease Prostate cancer Brother Cancer Brother Crohns disease Grandfather Cancer Grandmother Murder Grandfather Alzheimer's disease Grandmother Cancer Liver cancer Sister Mental health problem Sister Spondylosis Social History household members: spouse and children Smoking Status: Never smoker second hand exposure: No alcohol intake: current substance use type: does not use Meds Home Medications and Allergies Home Medications Medication Instructions Recorded Confirmed Type albuterol sulfate 90 mcg/actuation 1 - 2 inh inhalation Q4-6H PRN 03/15/23 09/03/23 Rx aerosol inhaler shortness of breath or wheezing #8.5 grams pioglitazone 15 mg tablet (Actos) 15 mg PO DAILY blood sugars #90 04/25/23 09/03/23 Rx tabs losartan 50 mg tablet 50 mg PO DAILY #90 tabs 08/07/23 09/03/23 Rx phentermine 37.5 mg tablet 37.5 mg PO DAILY #30 tabs 08/07/23 09/03/23 Rx Allergies Allergy/AdvReac Type Severity Reaction Status Date / Time metformin AdvReac Intermediate Diarrhea Verified 09/03/23 09:33 Exam Vital Signs (past 8 hours): - 09/03/23 09:35 Temperature 97.2 F L Pulse Rate 102 H Respiratory Rate 20 Blood Pressure 141/78 H Pulse Oximetry 97 Oxygen Delivery Method Room Air Oxygen Delivery Method Room Air Narrative Exam Narrative: General adult woman alert oriented no acute distress Chest nonlabored respiration Extremities warm well perfused Assessment & Plan Assessment & Plan narrative: The patient requires colorectal screening and colonoscopy is recommended. Technical details were discussed. Risks, benefits, alternatives explained. Risks including but not limited to myocardial infarction, aspiration, bleeding, pain, missed lesion, incomplete examination, need for further radiographic studies, colonic perforation, and need for major abdominal surgery were discussed. All questions were answered to their satisfaction, and they are in agreement with this plan.
[2023-09-03 11:05] VITALS: BP 137/66; PULSE 99; RESP 19; TEMP 37.2; O2SAT 98
--- NOTE | 2023-09-03 11:08 | P.OP.COLON_ITS ---
Operative Date/Time/Diagnoses Date of procedure: 09/03/23 Time of procedure: 11:08 Pre-op diagnosis: Personal history of colonic polyps Procedure & Clinicians Study performed: Colonoscopy and polypectomy Same procedure as scheduled: Yes Indications: Personal history of colonic polyps Colorectal screening Surgeon: Shane Florez Procedure Notes Procedure in detail: The history and physical was performed/updated and the patient is ASA class is 2. The procedure was discussed in detail with the patient. Potential risks complications including infection, bleeding, missed diagnosis, perforation, need for surgery, and were explained. Their questions were answered and informed consent was obtained. Patient was brought to the procedure room and placed standard monitoring equipment. The patient's vital signs were monitored continuously throughout the entire procedure. Prior to starting time-out was performed. The patient was placed in the left lateral recumbent position. Procedural sedation was administered by anesthesia. Examination began with a thorough inspection of the perianal area there was no evidence of fissures, fistulae, external hemorrhoids or cutaneous malignancy. The colonoscopy scope was then placed into the anal canal and was advanced to the cecum, which was identified by the ileocecal valve, the appendiceal orifice and the confluence of the taenia. The scope was then slowly withdrawn examining colon thoroughly in all directions, irrigating it of any residual stool. The scope was retroflexed within the rectum The patient tolerated the procedure well. They will be discharged once criteria are met. The prep was of good/excellent quality. The withdrawl time was 12 minutes. FINDINGS * Normal colorectal anastomosis * Transverse colon 8 mm polyp removed with cold snare Specimen(s): other (Transverse colon polyp) Impression: Colonic polyp x1 Post-procedure Plan for aftercare: Follow-up is dependent on pathology findings likely 5 years Disposition: same day surgery
[2023-09-03 11:10] VITALS: BP 141/79; PULSE 85; RESP 20; TEMP 36.6; O2SAT 99
[2023-09-03 11:16] VITALS: BP 154/87; PULSE 82; RESP 15; O2SAT 98
[2023-09-03 11:25] VITALS: BP 131/75; PULSE 79; RESP 18; O2SAT 98
== END 2023-09-03 11:39 | disposition home or self-care (01) ==
PROVIDERS: PCP Family Medicine; Referring Provider Surgery; Visit Provider Surgery
PROC: 0DJD8ZZ Inspection of Lower Intestinal Tract, Via Natural or Artificial Opening Endoscopic (ICD-10-PCS; CPT 45378; principal; 2023-09-03 10:15)
DX: Z12.11 Encounter for screening for malignant neoplasm of colon (principal); Z86.010 Personal history of colon polyps; D12.3 Benign neoplasm of transverse colon
CPT/HCPCS: 45385; J2704

== ENCOUNTER → 2023-10-29 10:31 | Outpatient (CLI) | payer OTHER, SELFPAY ==
[2023-05-17 13:32] VITALS: BMI 38.0
[2023-10-29 12:29] LABS: Hemoglobin A1C% w Est Avg Glu 5.6 % (4.0-6.0)
[2023-10-29 12:59] LABS: BUN Creatinine Ratio 23.9 (6-22); Blood Urea Nitrogen 17 mg/dL (7-17); Calcium 9.2 mg/dL (8.4-10.2); Carbon Dioxide 29 mmol/L (22-32); Chloride 104 mmol/L (98-107); Estimated Glomerular Filt Rate > 60 mL/min (>60); Glucose 117 mg/dL (80-110); HEMOLYSIS < 15 (0-50); Potassium 4.6 mmol/L (3.4-5.1); Sodium 139 mmol/L (137-145)
[2023-10-29 14:00] LABS: HIV 1 & 2 Ab/Ag 4th Gen Combo NEGATIVE (NEGATIVE); Hep C Virus Ab w/Reflex Quant NEGATIVE s/c (NEGATIVE)
== END ==
PROVIDERS: PCP Family Medicine; Referring Provider Family Medicine; Visit Provider Family Medicine
DX: R73.01 Impaired fasting glucose (principal); I10 Essential (primary) hypertension
CPT/HCPCS: 36415; 80048; 83036; 86803; 87389

== ENCOUNTER → 2024-10-01 09:41 | Outpatient (CLI) | payer OTHER, SELFPAY ==
[2023-05-17 13:32] VITALS: BMI 38.0
[2024-10-01 12:33] LABS: Alanine Aminotransferase 33 IU/L (<35); Albumin 5.2 g/dL (3.5-5.0); Albumin Globulin Ratio 1.9 (1.0-2.8); Alkaline Phosphatase 62 U/L (38-126); Aspartate Aminotransferase 30 IU/L (14-36); BUN Creatinine Ratio 21.8 (6-22); Bilirubin Total 0.6 mg/dL (0.2-1.3); Blood Urea Nitrogen 17 mg/dL (7-17); Calcium 9.8 mg/dL (8.4-10.2); Carbon Dioxide 25 mmol/L (22-32); Chloride 102 mmol/L (98-107); Cholesterol 178 mg/dL (140-199); Estimated Glomerular Filt Rate > 60 mL/min (>60); Globulin 2.7 g/dL (1.7-4.1); Glucose 104 mg/dL (80-110); HDL Cholesterol 65 mg/dL (40-60); HEMOLYSIS < 15 (0-50); LDL Cholesterol Calculated 90 mg/dL (<100); Potassium 4.5 mmol/L (3.4-5.1); Sodium 139 mmol/L (137-145); Total Protein 7.9 g/dL (6.3-8.2); Triglycerides 114 mg/dL (35-150)
== END ==
LOC: LAB 09:41
PROVIDERS: PCP Family Medicine; Referring Provider Family Medicine; Visit Provider Family Medicine
DX: Z00.00 Encounter for general adult medical examination without abnormal findings (principal); R73.01 Impaired fasting glucose; E66.01 Morbid (severe) obesity due to excess calories; I10 Essential (primary) hypertension; Z68.41 Body mass index [BMI] 40.0-44.9, adult
CPT/HCPCS: 36415; 80053; 80061; 83036

== ENCOUNTER → 2024-12-28 13:20 | Outpatient (CLI) | payer MEDICARE, OTHER, SELFPAY ==
[2023-05-17 13:32] VITALS: BMI 38.0
--- NOTE | 2024-12-28 13:28 | DI.RAD.S_ITS ---
PROCEDURE: XR CHEST 2V INDICATIONS: cough TECHNIQUE: 2 views of the chest were acquired. COMPARISON: None. FINDINGS: Surgical changes and devices: None. Lungs and pleura: Lungs are clear. No pleural effusions or pneumothorax. Mediastinum: Mediastinal contours are normal. Heart size is normal. Bones and chest wall: No suspicious bony abnormalities. Soft tissues appear unremarkable. IMPRESSION: No acute cardiopulmonary abnormality is seen. Dictated by: Enrrique Walker M.D. on 12/29/2024 at 0:00 Approved by: Enrrique Walker M.D. on 12/29/2024 at 0:00
== END ==
PROVIDERS: PCP Family Medicine; Referring Provider Nurse Practitioner Family; Visit Provider Nurse Practitioner Family
DX: R05.1 Acute cough (principal)
CPT/HCPCS: 0241U; 71046

== ENCOUNTER → 2024-12-28 13:20 | Outpatient (CLI) | payer MEDICARE, SELFPAY ==
[2023-05-17 13:32] VITALS: BMI 38.0
[2024-12-28 14:13] LABS: COVID-19 CEPHEID 4-PLEX PCR Negative (Negative); Influenza A - CEPHEID Flu A NEGATIVE (NEGATIVE); Influenza B - CEPHEID Flu B NEGATIVE (NEGATIVE); Respiratory Syncytial Virus Negative (Negative)
== END ==
PROVIDERS: PCP Family Medicine; Referring Provider Nurse Practitioner Family; Visit Provider Nurse Practitioner Family
DX: R05.1 Acute cough (principal)
CPT/HCPCS: 0241U

== ENCOUNTER → 2025-05-04 09:47 | Outpatient (CLI) | payer MEDICARE, OTHER, SELFPAY ==
[2023-05-17 13:32] VITALS: BMI 38.0
[2025-05-04 10:54] LABS: Hematocrit 46.5 % (36-46); Hemoglobin 15.5 g/dL (12.0-16.0); Mean Corpuscular HGB Conc 33.4 % (30-36); Mean Corpuscular Hemoglobin 28.6 PG (26-34); Mean Corpuscular Volume 85.7 fL (80-100); Platelet Count 260 X10^3/uL (150-400)
[2025-05-04 11:02] LABS: Hemoglobin A1C% w Est Avg Glu 5.8 % (4.0-6.0)
[2025-05-04 11:28] LABS: Alanine Aminotransferase 16 IU/L (<35); Albumin 5.1 g/dL (3.5-5.0); Albumin Globulin Ratio 2.0 (1.0-2.8); Alkaline Phosphatase 76 U/L (38-126); Blood Urea Nitrogen 10 mg/dL (7-17); Calcium 9.8 mg/dL (8.4-10.2); Carbon Dioxide 26 mmol/L (22-32); Chloride 105 mmol/L (98-107); Estimated Glomerular Filt Rate > 60 mL/min (>60); Globulin 2.6 g/dL (1.7-4.1); Glucose 101 mg/dL (70-99); HEMOLYSIS < 15 (0-50); Potassium 4.8 mmol/L (3.4-5.1); Sodium 141 mmol/L (137-145); Total Protein 7.7 g/dL (6.3-8.2)
== END ==
PROVIDERS: PCP Family Medicine; Referring Provider Family Medicine; Visit Provider Family Medicine
DX: R73.01 Impaired fasting glucose (principal); E66.01 Morbid (severe) obesity due to excess calories; Z68.41 Body mass index [BMI] 40.0-44.9, adult
CPT/HCPCS: 36415; 80053; 83036; 85027

== ENCOUNTER → 2025-05-13 07:49 | Outpatient (CLI) | payer MEDICARE, OTHER, SELFPAY ==
[2023-05-17 13:32] VITALS: BMI 38.0
--- NOTE | 2025-05-13 07:51 | DI.MG.S_ITS ---
MM screening mammo unilat RT: 05/13/2025. BI-RADS: 2 CLINICAL: 65-year old female for right screening mammogram. No Tyrer-Cuzick risk score calculation due to the patient's personal history of breast cancer. Patient reports a history of left breast carcinoma diagnosed at age 59. Status-post left mastectomy. No first-degree family history of breast cancer. The patient had prior bilateral breast biopsies. PRIOR EXAMS 03/08/2023, 09/27/2021, 06/20/2020, 07/29/2019, 06/09/2019. MAMMOGRAPHY TECHNIQUE: 2D and 3D (tomosynthesis) digital mammographic views obtained, with additional images as needed for full coverage. Current study was also evaluated with a Computer Aided Detection (CAD) system. DENSITY Right: B. There are scattered areas of fibroglandular density. MAMMOGRAPHY FINDINGS Right: Biopsy marker present on the right. There are no suspicious masses, calcifications, or other findings in the breast. IMPRESSION: Right * No evidence of malignancy with benign findings. RECOMMENDATIONS Right * Annual screening mammography. OVERALL ASSESSMENT CATEGORY BI-RADS-2: Benign. The [employer] recommends annual screening mammography beginning at age 40 for women with average risk of breast cancer. ELECTRONICALLY SIGNED: Jeannie Brooks M.D. on 05/13/2025 at 08:58:51 AM PT Interpreting Station ID: [id number]
== END ==
LOC: MAMMO 07:50
PROVIDERS: PCP Family Medicine; Referring Provider Family Medicine; Visit Provider Family Medicine
DX: Z12.31 Encounter for screening mammogram for malignant neoplasm of breast (principal); Z85.3 Personal history of malignant neoplasm of breast; R92.311 Mammographic fatty tissue density, right breast
CPT/HCPCS: 77063; 77067